=== PATIENT | male | born 1960 | race Caucasian/White ===

== ENCOUNTER 2019-04-11 10:09 | Observation (INO) ==
--- NOTE | 2019-03-14 16:09 | PAT Medication Instructions ---
Medication Instructions Date of Service March 14, 2019 Home Medications albuterol sulfate 2 puff INHALATION Q6H PRN amlodipine 2.5 mg PO DAILY PRN ascorbic acid (vitamin C) [Vitamin C] 500 mg PO HS aspirin [Aspir-81] 81 mg PO QAM brinzolamide-brimonidine [Simbrinza] 1 drp OPHTHALMIC (EYE) BID bupropion HCl 150 mg PO QAM buspirone 15 mg PO TID celecoxib [Celebrex] 200 mg PO QPM cholecalciferol (vitamin D3) [Vitamin D3] 5,000 unit PO QPM dimenhydrinate [Dramamine] 50 mg PO TID PRN donepezil 10 mg PO QPM esomeprazole magnesium 40 mg PO QAM gabapentin 100 mg PO TID hydroxyzine HCl 50 mg PO TID PRN levothyroxine 50 mcg PO QAM linaclotide [Linzess] 72 mcg PO QAM loratadine 10 mg PO QAM metronidazole 500 mg PO BID morphine 15 mg PO Q12H multivitamin 1 tab PO QAM potassium chloride 20 meq PO BID primidone 50 mg PO BID promethazine 25 mg PO DAILY PRN quetiapine 25 - 50 mg PO BID quetiapine 200 mg PO HS risperidone 0.5 mg PO HS simethicone [Gas-X Extra Strength] 125 mg PO BID PRN simvastatin 20 mg PO QAM testosterone 2 - 3 packet TRANSDERMAL BID tizanidine 2 mg PO DAILY PRN tolterodine 2 mg PO HS torsemide 10 mg PO QAM trazodone 100 mg PO HS vortioxetine [Trintellix] 20 mg PO QAM Continue as directed testosterone 2 - 3 packet TRANSDERMAL BID -- continue as directed but do not place patch near surgical site ASK your surgeon for instructions celecoxib [Celebrex] 200 mg PO QPM STOP taking 24 hours before surgery primidone 50 mg PO BID DO NOT take the morning of surgery dimenhydrinate [Dramamine] 50 mg PO TID PRN linaclotide [Linzess] 72 mcg PO QAM loratadine 10 mg PO QAM multivitamin 1 tab PO QAM potassium chloride 20 meq PO BID simethicone [Gas-X Extra Strength] 125 mg PO BID PRN tizanidine 2 mg PO DAILY PRN torsemide 10 mg PO QAM Take morning of surgery With a small sip of water, OTHERWISE NOTHING TO EAT OR DRINK AFTER MIDNIGHT: albuterol sulfate 2 puff INHALATION Q6H PRN (if needed, and bring with you to the hospital) amlodipine 2.5 mg PO DAILY PRN aspirin [Aspir-81] 81 mg PO QAM brinzolamide-brimonidine [Simbrinza] 1 drp OPHTHALMIC (EYE) BID bupropion HCl 150 mg PO QAM buspirone 15 mg PO TID esomeprazole magnesium 40 mg PO QAM gabapentin 100 mg PO TID levothyroxine 50 mcg PO QAM metronidazole 500 mg PO BID morphine 15 mg PO Q12H promethazine 25 mg PO DAILY PRN quetiapine 25 - 50 mg PO BID simvastatin 20 mg PO QAM vortioxetine [Trintellix] 20 mg PO QAM Take evening before surgery albuterol sulfate 2 puff INHALATION Q6H PRN (if needed) amlodipine 2.5 mg PO DAILY PRN (if needed) ascorbic acid (vitamin C) 500 mg PO HS brinzolamide-brimonidine [Simbrinza] 1 drp OPHTHALMIC (EYE) BID buspirone 15 mg PO TID celecoxib [Celebrex] 200 mg PO QPM cholecalciferol (vitamin D3) 5,000 unit PO QPM dimenhydrinate [Dramamine] 50 mg PO TID PRN (if needed) donepezil 10 mg PO QPM gabapentin 100 mg PO TID hydroxyzine HCl 50 mg PO TID PRN (if needed) metronidazole 500 mg PO BID morphine 15 mg PO Q12H potassium chloride 20 meq PO BID promethazine 25 mg PO DAILY PRN (if needed) quetiapine 25 - 50 mg PO BID quetiapine 200 mg PO HS risperidone 0.5 mg PO HS simethicone [Gas-X Extra Strength] 125 mg PO BID PRN (if needed) tizanidine 2 mg PO DAILY PRN (if needed) tolterodine 2 mg PO HS trazodone 100 mg PO HS Other Notes If you have any questions please call us at [phone] or [phone] or [phone] or [phone]
--- NOTE | 2019-03-15 13:01 | Anesthesiology Consultation ---
Date of Service March 15, 2019 Assessment & Plan (1) Encounter for pre-operative examination: *PATIENT IS FTM TRANSGENDER, USES MALE PRONOUNS* *LIKELY DIFFICULT INTUBATION BASED ON EXAM* *PATIENT IS LEGALLY BLIND* Cardiology clearance 03/17/2019: "Cleared to have upcoming right arthroscopic shoulder surgery with UOC. Pharm nuclear stress study 07/2018 negative for ischemia. No history of obstructive CAD. Hypertension controlled well. MVR normal function 1 year ago." Chart Review Chart Review: Acceptable Risk for Surgery and Patient seen in Pre Admission Testing Teaching & Discussion Instructed NPO after midnight before surgery, except medications with 15 cc of water. Medication instructions provided according to the PAT guidelines. Patient is legally blind and has his prescriptions filled and organized by [facility] in [place]. Spoke to them re: surgery date; faxed instructions, and they will fill his pack for the surgery date accordingly. History Surgery Operation Date: 04/11/19 07:00 Proposed Procedures p Right Shoulder Arthroscopic Excision Calcific Deposit, Possible Needle Barbotage - Franklyn Mariscal MD Height/Weight Height: 5 ft 3 in Weight: 97.6 kg Allergies Allergy/AdvReac Type Severity Reaction Status Date / Time latex Allergy Mild Rash Verified 03/09/19 11:13 adhesive tape Allergy Unknown Rash Verified 03/09/19 11:13 amoxicillin Allergy Unknown Unknown Verified 03/09/19 11:13 hydromorphone [From Dilaudid] AdvReac Severe Rash,LIGHTHEADED, Verified 03/09/19 11:13 VERY HOT doxycycline AdvReac Unknown Unknown Verified 03/09/19 11:13 lisinopril AdvReac Unknown Unknown Verified 03/09/19 11:13 morphine AdvReac Unknown HIGH Verified 03/09/19 11:13 DOSES-FALLS ASLEEP/CAN'T WAKE UP! NSAIDS (Non-Steroidal AdvReac Unknown GI BLEED Verified 03/09/19 11:13 Anti-Inflamma pregabalin [From Lyrica] AdvReac Unknown Confusion,A Verified 03/09/19 11:13 NGER topiramate [From Topamax] AdvReac Unknown Unknown Verified 03/09/19 11:13 Medications Home Medications Medication Instructions Recorded Confirmed Last Taken albuterol sulfate 2 puff INHALATION Q6H PRN 03/09/19 03/09/19 Unknown amlodipine 2.5 mg PO DAILY PRN 03/09/19 03/09/19 Unknown ascorbic acid (vitamin C) [Vitamin 500 mg PO HS 03/09/19 03/09/19 Unknown C] aspirin [Aspir-81] 81 mg PO QAM 03/09/19 03/09/19 Unknown brinzolamide-brimonidine 1 drp OPHTHALMIC (EYE) BID 03/09/19 03/09/19 Unknown [Simbrinza] bupropion HCl 150 mg PO QAM 03/09/19 03/09/19 Unknown buspirone 15 mg PO TID 03/09/19 03/09/19 Unknown celecoxib [Celebrex] 200 mg PO QPM 03/09/19 03/09/19 Unknown cholecalciferol (vitamin D3) 5,000 unit PO QPM 03/09/19 03/09/19 Unknown [Vitamin D3] dimenhydrinate [Dramamine] 50 mg PO TID PRN 03/09/19 03/09/19 Unknown donepezil 10 mg PO QPM 03/09/19 03/09/19 Unknown esomeprazole magnesium 40 mg PO QAM 03/09/19 03/09/19 Unknown gabapentin 100 mg PO TID 03/09/19 03/09/19 Unknown hydroxyzine HCl 50 mg PO TID PRN 03/09/19 03/09/19 Unknown levothyroxine 50 mcg PO QAM 03/09/19 03/09/19 Unknown linaclotide [Linzess] 72 mcg PO QAM 03/09/19 03/09/19 Unknown loratadine 10 mg PO QAM 03/09/19 03/09/19 Unknown metronidazole 500 mg PO BID 03/09/19 03/09/19 Unknown morphine 15 mg PO Q12H 03/09/19 03/09/19 Unknown multivitamin 1 tab PO QAM 03/09/19 03/09/19 Unknown potassium chloride 20 meq PO BID 03/09/19 03/09/19 Unknown primidone 50 mg PO BID 03/09/19 03/09/19 Unknown promethazine 25 mg PO DAILY PRN 03/09/19 03/09/19 Unknown quetiapine 25 - 50 mg PO BID 03/09/19 03/09/19 Unknown quetiapine 200 mg PO HS 03/09/19 03/09/19 Unknown risperidone 0.5 mg PO HS 03/09/19 03/09/19 Unknown simethicone [Gas-X Extra Strength] 125 mg PO BID PRN 03/09/19 03/09/19 Unknown simvastatin 20 mg PO QAM 03/09/19 03/09/19 Unknown testosterone 2 - 3 packet TRANSDERMAL BID 03/09/19 03/09/19 Unknown tizanidine 2 mg PO DAILY PRN 03/09/19 03/09/19 Unknown tolterodine 2 mg PO HS 03/09/19 03/09/19 Unknown torsemide 10 mg PO QAM 03/09/19 03/09/19 Unknown trazodone 100 mg PO HS 03/09/19 03/09/19 Unknown vortioxetine [Trintellix] 20 mg PO QAM 03/09/19 03/09/19 Unknown Past Medical History Medical History Anxiety Arthritis Bipolar disorder Cardiac murmur s/p mitral valve replacement 2006 Chronic obstructive pulmonary disease Depression [id number] transgender person Fibromyalgia GERD (gastroesophageal reflux disease) Glaucoma Hyperlipidemia Hypertension Hypothyroidism Legally blind Multiple sclerosis DX'D 20 YRS AGO-F/[place] THOMASMILAN[place] [place]esity Restless leg syndrome SOB (shortness of breath) on exertion ON OCC Stage III chronic kidney disease Exercise / Class Metabolic Activity III < 4 Walking/Shop/Light housework (Limited by knee pain, denies CP or SOB with ambulation) Past Family History Family History Grandfather (Maternal) Family history of diabetes mellitus Past Surgical History Surgical History H/O eye surgery MANY X BILAT-RETINAL, FOR GLAUCOMA, ETC H/O knee surgery X 5 OPEN History of adenoidectomy History of arthroscopy LEFT SHOULDER History of section History of colonoscopy History of esophagogastroduodenoscopy (EGD) WITH DILITATION History of heart valve replacement [id number] History of laparotomy X 3-4-[place] History of tonsillectomy Past Anesthesia History No Hx of Anesthesia Complications, Difficult Airway (LIKELY BASED ON EXAM) and No Family Hx of Anesthesia Complications History of PONV No Hx of PONV and Hx of Motion Sickness Social History Smoking Status: Former smoker Do You Dip or Chew Tobacco: No Smoking End Date: QUIT 05/2018 Hx Alcohol Use: Yes Alcohol type: hard liquor alcohol intake frequency: holidays/special occasions only Hx Substance Use: No Review of Systems Pt denies any recent chest pain, shortness of breath, palpitations, cough, fever or URI. +sinus congestion Physical Exam Vital Signs BP: 115/78 P: 80bpm SPO2: 96% RA T: 98.7 F R: 16 Constitutional + obese ENMT Mouth: + dentures, + edentulous, + macroglossia and + small oral opening Thyromental Distance: > or= 3.5 Finger Breadths (3.5) Mallampati Class: IV Neck + short neck, + thick neck and + limited neck extension (pain with extension) Respiratory normal respiratory effort Auscultation: lungs clear to auscultation bilaterally Cardiovascular Rate/Rhythm: regular rate and regular rhythm Heart Sounds: + murmur (II/ systolic loudest at RSB) Testing Laboratory Results 02/25/19 WBC: 7.12 H/H: 12.5/40.1 PLATELETS: 219 SODIUM: 142 POTASSIUM: 4.2 CHLORIDE: 103 CO2: 27 BUN: 20 CREATININE: 1.8 GLUCOSE: Electrocardiogram Date: 07/29/18 Findings: + NSR @ (61bpm with first degree AV block) Chest X-Ray Date: 07/29/18 Lungs well expanded without demonstrable pneumothorax or pleural effusion. Mild linear parenchymal density seen in each lower lung field most prominent retrocardiac left lower lung field suspect for linear atelectasis. There is cu rrently no focal parenchymal consolidation. There is no pulmonary vascular congestion. Status post median sternotomy and valve replacement. Echocardiogram Date: 01/28/18 EF: 55-59% Borderline concentric LVH. The right ventricular cavity size and systolic function are normal. The left atrium is mildly enlarged. There is aortic valve sclerosis without stenosis. There is a mitral valve bioprosthesis present. Significant mitral valve prosthesis stenosis and regurgitation are absent. Prosthetic valve mean peak velocity of 1.57 ms, peak/mean gradient of 11/4 at heart rate of 52 bpm. Compared to prior echo the gradients of decreased. Mild tricuspid regurgitation is present. No pericardial effusion is noted. Normal IVC size and collapsibility with inspiration indicates a normal right atrial pressure 3 mmHg. Estimated pulmonary artery systolic pressure is 42 mmHg. Stress Test Date: 08/17/18 Type: nuclear Resting EF: >70% Lexiscan nuclear cardiac stress test negative for ischemia. TID normal at 1.08.
--- NOTE | 2019-04-10 17:49 | History and Physical Report ---
DATE OF ADMISSION: 04/11/2019 CHIEF COMPLAINT: Chronic right shoulder pain. HISTORY OF PRESENT ILLNESS: This is a 58-year-old male patient of Dr. Mariscal'milka complaining of chronic right shoulder pain, longstanding, now progressively getting worse. The patient failed conservative treatment and wishes to proceed with a right shoulder arthroscopic excision of calcific deposit and possible needle barbotage. PAST MEDICAL HISTORY: Congestive heart failure, heart murmur, heart valve problem, hypercholesterolemia, COPD, anxiety, multiple sclerosis, hypothyroidism, osteoarthritis, back problems, sciatica, acid reflux, obesity. SOCIAL HISTORY: Nonsmoker, occasional drinker. PAST SURGICAL HISTORY: Bypass surgery, left shoulder surgery, , left lower leg surgery x5, laparoscopic surgery, cholecystectomy, tonsillectomy, bilateral eye surgery, bilateral thumb surgeries. REVIEW OF SYSTEMS: The patient complains of chronic right shoulder pain. Otherwise, denies any shortness of breath, chest pain, nausea, vomiting or any other joint complaints. FAMILY HISTORY: Noncontributory. MEDICATIONS: 1. Hydroxyzine 50 mg 3 times daily. 2. Trazodone 100 mg daily. 3. Gabapentin 100 mg 5 capsules in the a.m. and 4 capsules in the p.m. 4. Furosemide 20 mg daily. 5. Linzess 290 mcg daily. 6. Advair Diskus 250/50 one puff twice daily. 7. Budesonide 32 mcg/actuation inhaler daily. 8. Simvastatin 20 mg daily. 9. Quetiapine 200 mg daily at night. 10. Aspirin 81 mg daily. 11. Levothyroxine 50 mcg daily. 12. Proventil HFA 90 mcg actuation inhaler 2 puffs daily every 4-6 hours as needed. 13. Aricept 10 mg daily. 14. Metoprolol 25 mg 1/2 tablet twice daily. 15. Lorazepam 1 mg daily. 16. Trintellix 20 mg daily. 17. Morphine 15 mg every 8 hours as needed. 18. Simbrinza 1%-0.2% eye drop suspension twice daily. 19. Vitamin D3 1000 units daily. 20. Myrbetriq 50 mg daily. 21. Primidone 50 mg daily. 22. MiraLax 17 grams packet with water daily. 23. Requip 1 mg daily. 24. Vitamin C 250 mg 2 tablets daily. 25. Magnesium 40 mg twice daily. 26. Risperdal 0.5 mg daily. 27. Relistor 150 mg daily. 28. Baclofen 5 mg twice daily. ALLERGIES: HYDROMORPHONE, WHICH IS ANAPHYLACTIC, LATEX; LISINOPRIL, ANTI-INFLAMMATORIES, ADHESIVES, LYRICA AND TOPAMAX. PHYSICAL EXAMINATION: GENERAL: Well-developed, well-nourished 58-year-old male in no acute distress. He is alert and oriented x3 and pleasant. HEENT: Normocephalic, atraumatic. Extraocular motions are intact. Pupils are equal and reactive to light. HEART: Regular rate and rhythm with a 2/6 murmur appreciated. LUNGS: Clear. ABDOMEN: Soft, nontender, bowel sounds present. EXTREMITIES: Right shoulder active range of motion of 0-120, passively to 140. He has positive impingement maneuvering. He has 4/5 strength with pain. Neurologically and neurovascularly, he is intact in the right upper extremity. DIAGNOSES: Right shoulder calcific tendinitis and impingement, history of congestive heart failure, heart murmur, heart valve problem, hypercholesterolemia, chronic obstructive pulmonary disease, anxiety, multiple sclerosis, hypothyroidism, heart valve replacement, osteoarthritis, upper back problems, sciatica, acid reflux, obesity. PLAN: The patient was advised of his diagnosis. Indications, risks, benefits, postop course have all been reviewed. The patient wished to proceed with a right shoulder arthroscopic excision of calcific deposit and possible needle barbotage. Necessary consent forms, preoperative testing and clearances will be obtained.
[~2019-04-11 10:09] MED LIST: CEFAZOLIN 2000MG 2,000 MG/15 ML SYR IV SCH; CLINDAMYCIN 600 MG/54 ML BAG IV SCH; LR 15ML/HR IV SCH; ROPIVACAINE 0.5% 5 MG/ML 30 ML VIAL ONE
[2019-04-11] MEDS ORDERED: fentaNYL citrate 100 MCG/2 ML VIAL ONE (10:50)
--- NOTE | 2019-04-11 10:50 | History & Physical Bridge Note ---
Date of Service April 11, 2019 History & Physical Bridge Note I have examined the patient, reviewed the History & Physical and in the interval since the performance of the History & Physical I have noted the following changes of clinical significance: no changes noted
[2019-04-11] MEDS ORDERED: MIDAZOLAM HCL 1 MG/ML 2ML VIAL ONE ×2 (10:51)
[2019-04-11] MEDS ORDERED: CLINDAMYCIN 600 MG/54 ML D5W IV ONE (12:11)
[2019-04-11] MEDS ORDERED: ePHEDrine sulfate 50 MG/ML AMP IV PRN (12:37)
[2019-04-11] MEDS ORDERED: ONDANSETRON INJ 2 MG/ML 2 ML VIAL IV PRN ×2 (12:37→16:35)
[2019-04-11] MEDS ORDERED: ATROPINE SULFATE 0.1 MG/ML 10ML SYR IV PRN (12:37)
[2019-04-11] MEDS ORDERED: fentaNYL citrate 100 MCG/2 ML VIAL IV PRN (12:37)
[2019-04-11] MEDS ORDERED: EpINEphrine HCL INJ 1 MG/ML 1ML SYRINGE ONE ×2 (12:46→14:13)
[2019-04-11] MEDS ORDERED: LIDOCAINE HCL 2% 2 ML VIAL/AMP(20MG/ML) INFIL ONE (14:34)
[2019-04-11] MEDS ORDERED: PROPOFOL IV EMULSION 10 MG/ML 20 ML VIAL IV ONE (14:34)
[2019-04-11] MEDS ORDERED: DEXAMETHASONE SOD INJ 4 MG/ML VIAL ONE (14:34)
[2019-04-11] MEDS ORDERED: ONDANSETRON INJ 2 MG/ML 2 ML VIAL ONE (14:34)
[2019-04-11] MEDS ORDERED: ePHEDrine sulfate 50 MG/ML SYR ONE (14:34)
--- NOTE | 2019-04-11 14:42 | Post Operative Brief Note ---
Immediate Post Op Note v1 Date of Surgery April 11, 2019 Pre & Post Diagnosis Operation Date: 04/11/19 13:00 Pre-Op Diagnosis: Right Shoulder: Calcific Tendonitis and Impingement Post-Op Diagnosis: Right Shoulder: Calcific Tendonitis and Impingement, Subacromial Bursitis. Glenohumeral joint degenerative arthritis, degenerative glenoid labrum, articular sided partial tear rotator cuff I identified the patient and participated in the time-out.: Yes Procedure Operation Date: 04/11/19 13:00 Actual Procedures p Right Shoulder: Arthroscopic Excision Calcific Deposit, Needle Barbotage, Subacromial Decompression, glenohumeral joint and labral debridement, Debridement Partial Tear Rotator Cuff(Right), subacromial bursectomy- Franklyn Mariscal MD Surgeon Franklyn Mariscal MD Printing Press Operator Nael CUENCA Estimated Blood Loss 10 Findings Consistent with Post-Op Diagnosis Anesthesia Type General Regional Complications none Disposition Accompanied Patient To Recovery: No Disposition: Recovery Room Overlapping Procedure I was immediately available: during the entire case.
--- NOTE | 2019-04-11 14:52 | Operative Report ---
Post Operative Report Pre & Post Diagnosis Operation Date: 04/11/19 13:00 Pre-Op Diagnosis: Right Shoulder: Calcific Tendinitis and possible subacromial impingement Post-Op Diagnosis: Right Shoulder: Calcific Tendinitis and Impingement, articular sided partial tear rotator cuff, subacromial Bursitis, glenohumeral joint degenerative arthritis with degenerative glenoid labrum and chronic subacromial bursitis I identified the patient and participated in the time-out.: Yes Procedure Operation Date: 04/11/19 13:00 Actual Procedures p Right Shoulder: Arthroscopic Excision Calcific Deposit, Needle Barbotage, Subacromial Decompression, extensive debridement including subacromial bursal calcium deposit articular side partial tear rotator cuff glenoid labrum and humeral head articular surface- Franklyn Mariscal MD Surgeon Franklyn Mariscal MD Cash Grain Grower Nael CUENCA Estimated Blood Loss 10 Findings Consistent with Post-Op Diagnosis Specimens None Anesthesia Type General Regional Complications none Disposition Accompanied Patient To Recovery: No Disposition: Recovery Room Indications 58-year-old male chronic right shoulder pain failed conservative management. Radiographs demonstrate a type II acromion with calcific tendinitis of the rotator cuff maintained glenohumeral joint space on axillary view. Description of Procedure The patient was to the operating room anesthetized under regional block and general anesthesia. The patient was positioned on the operating table in the 70 beachchair position. All of the other extremities were well-padded. The right upper extremity was prepped and draped in the usual sterile fashion. Examination demonstrated an obese arm good passive range of motion. Arthroscopy of the shoulder was performed via anterior and posterior arthroscopy portals. Posterior portal was placed in the soft spot and the anterior portal was placed in the rotator interval. Subsequent portals included lateral subacromial. The following findings were noted: Glenohumeral joint demonstrated grade 3 degenerative arthritis of the glenohumeral joint. The glenoid still had reasonably good articular surface with some grade 1-2 changes the humeral head however had a large area of articular thinning not quite exposed bone yet but there were large areas of delamination in the central region of the humeral head with some loose delaminating flaps around the edges. There was some degenerative fraying of the glenoid labrum anterior superior and posterior. Biceps tendon and anchor were normal intact. There was undersurface partial articular sided superficial tearing of the supraspinatus with some thin displaced flaps just a few millimeters thick. Subacromial space was chronic thickened subacromial bursitis intact bursal surface of the rotator cuff calcium deposit in the supraspinatus tendon and type II acromion no fraying of the CA ligament but with the curvature the acromion and may have created some impinge ment. Attention was first taken to debriding the frayed edges of the labrum. I used a 4.5 full-radius resector suction shaver device to do that. Similar debridement was performed of the delaminating loose edges around the thin the central lesion of the humeral head. The partial tear of the rotator cuff debrided back to intact stable fibers. A thorough subacromial bursectomy was performed. The capsule deposit was identified using a spinal needle to penetrate rotator cuff with a needle barbotage used to take small cores of calcium out of the deposit and break up the deposit. A probe was placed into the positive to work out as much calcium is good from within the rotator cuff and area of the calcium deposit. All this calcific Debris Was Irrigated Out Of the Subacromial Space. The bursa and periosteum on the undersurface of the acromion was ablated with the radiofrequency ablator and the CA ligament was released off the anterior acromion. The CA ligament was debrided back. A 5.5 bur was used to plane down the acromion to type I flat shape. There was taken through range of motion it was no impingement. The portal sites were closed with interrupted nylon sutures. Sterile dressings were applied and a sling immobilizer. The patient tolerated the procedure well. My physician internal medicine physician assistant Nael CUENCA, assisted in arm positioning, instrument management, suture management when indicated, incision closure, sling application, and will participate in the postoperative care of the patient. I attest to the content of the Intraoperative Record and any orders documented therein. Any exceptions are noted below.
--- NOTE | 2019-04-11 15:26 | Anesthesiology Progress Note ---
Date of Service April 11, 2019 Anesthesia Post Procedure Vital Signs Vital Signs: Temp Pulse Pulse Resp BP BP Pulse Ox 04/11/19 15:15 71 16 132/85 100 04/11/19 15:05 72 25 H 117/77 100 04/11/19 14:57 36.5 C 73 23 131/75 100 04/11/19 11:32 36.9 C 78 20 119/79 95 Pain Intensity Generalized: Pain Intensity: 7 Notes Mental Status: alert / awake / arousable and participated in evaluation Nausea / Vomiting: adequately controlled Pain: adequately controlled Airway Patency, RR, SpO2: stable & adequate BP & HR: stable & adequate Hydration State: stable & adequate Anesthetic Complications: no major complications apparent and Pt Satisfied with anesthetic care
[2019-04-11] MEDS ORDERED: ALBUTEROL HFA 8 GM INHALER INH PRN (16:35)
[2019-04-11] MEDS ORDERED: TIZANIDINE HCL 4 MG TABLET PO PRN (16:35)
[2019-04-11] MEDS ORDERED: HYDROmorphone INJ 0.5 MG/0.5 ML SYR IV PRN (16:35)
[2019-04-11] MEDS ORDERED: SODIUM CHLORIDE 0.9% 1000ML 1,000 ML IV SCH (16:35)
[2019-04-11] MEDS ORDERED: NALOXONE HCL 0.4 MG/1 ML VIAL/CARP IV PRN (16:35)
[2019-04-11] MEDS ORDERED: bisacodyL 10 MG SUPP PR PRN (16:35)
[2019-04-11] MEDS ORDERED: AMLODIPINE BESYLATE 5 MG TAB PO PRN (16:35)
[2019-04-11] MEDS ORDERED: MAGNESIUM HYDROXIDE SUSP 30 ML UDC PO PRN (16:35)
[2019-04-11] MEDS ORDERED: SIMETHICONE 80 MG CHEW PO PRN (16:35)
[2019-04-11] MEDS ORDERED: TESTOSTERONE TD SCH (21:00)
[2019-04-11] MEDS ORDERED: risperiDONE 0.5 MG TABLET PO SCH (21:00)
[2019-04-11] MEDS ORDERED: DONEPEZIL HCL 10 MG TAB PO SCH (21:00)
[2019-04-11] MEDS ORDERED: QUETIAPINE FUMARATE 200 MG TAB PO SCH (21:00)
[2019-04-11] MEDS ORDERED: CeleBREX 200 MG CAP PO SCH (21:00)
[2019-04-11] MEDS ORDERED: CHOLECALCIFEROL 1,000 UNITS TAB PO SCH (21:00)
[2019-04-11] MEDS ORDERED: TOLTERODINE TARTRATE LA 2 MG CAPCR PO SCH (21:00)
[2019-04-11] MEDS ORDERED: TRAZODONE HCL 100 MG TAB PO SCH (21:00)
[2019-04-11] MEDS ORDERED: BRINZOLAMIDE BRIMONIDINE OP SCH (21:00)
[2019-04-11] MEDS: QUETIAPINE FUMARATE 25 MG TABLET PO SCH (21:36)
[2019-04-11] MEDS: PRIMIDONE 50 MG TAB PO SCH (21:37)
[2019-04-11] MEDS: POTASSIUM CHLORIDE 20 MEQ TABCR PO SCH (21:37)
[2019-04-11] MEDS: BusPIRone 15 MG TAB PO SCH (21:37)
[2019-04-11] MEDS: DOCUSATE SODIUM 100 MG CAP PO SCH (21:38)
[2019-04-11] MEDS: GABAPENTIN 600 MG TAB PO SCH (21:38)
[2019-04-11] MEDS: MoRPHine SULFATE CR 15 MG TABCR PO SCH (21:38)
[2019-04-12] MEDS: MoRPHine SULFATE 2 MG/ML CARP IV PRN ×2 (00:17→06:09)
[2019-04-12] MEDS ORDERED: LEVOTHYROXINE SODIUM 50 MCG TABLET PO SCH (06:30)
--- NOTE | 2019-04-12 08:03 | Anesthesiology Progress Note ---
Date of Service April 12, 2019 Anesthesia Post Procedure Vital Signs Vital Signs: Temp Pulse Pulse Pulse Resp BP BP 04/12/19 02:45 36.5 C 75 18 142/87 H 04/11/19 23:20 36.4 C L 68 16 144/60 H 04/11/19 18:57 36.7 C 80 17 122/78 04/11/19 17:46 36.7 C 78 18 123/77 04/11/19 16:47 36.7 C 71 18 114/75 04/11/19 16:18 36.7 C 73 18 103/68 04/11/19 15:49 36.7 C 73 20 111/69 04/11/19 15:35 36.4 C L 72 22 119/85 04/11/19 15:25 71 20 113/77 04/11/19 15:15 71 16 132/85 04/11/19 15:05 72 25 H 117/77 04/11/19 14:57 36.5 C 73 23 131/75 04/11/19 11:32 36.9 C 78 20 119/79 Pulse Ox 04/12/19 02:45 92 04/11/19 23:20 94 04/11/19 18:57 93 04/11/19 17:46 92 04/11/19 16:47 92 04/11/19 16:18 93 04/11/19 15:49 93 04/11/19 15:35 100 04/11/19 15:25 93 04/11/19 15:15 100 04/11/19 15:05 100 04/11/19 14:57 100 04/11/19 11:32 95 Notes Mental Status: alert / awake / arousable Patient Amnestic to Procedure: Yes Nausea / Vomiting: adequately controlled Pain: adequately controlled Airway Patency, RR, SpO2: stable & adequate BP & HR: stable & adequate Hydration State: stable & adequate Anesthetic Complications: no major complications apparent and Pt Satisfied with anesthetic care
--- NOTE | 2019-04-12 08:11 | Orthopedic Progress Note ---
Date of Service April 12, 2019 Assessment & Plan (1) Calcific tendinitis of right shoulder: POD #1, Right shoulder scope, excision calcific deposit, needle barbotage, SAD, extensive debridement. PT/ OT D/C home today. Subjective POD #1, Feeling well. Pain controlled well. Denies SOB, CP, N/V. Physical Exam Physical Exam: Right shoulder dressings c/d/i. Fingers mobile. Sling in tact. A&Ox3. N/V+. Results & Data Vital Signs (Past 12 Hours) Vital Signs Temp Pulse Resp BP Pulse Ox 04/12/19 02:45 36.5 C 75 18 142/87 H 92 04/11/19 23:20 36.4 C L 68 16 144/60 H 94
[2019-04-12] MEDS: BusPIRone 15 MG TAB PO SCH (08:42)
[2019-04-12] MEDS: POTASSIUM CHLORIDE 20 MEQ TABCR PO SCH (08:42)
[2019-04-12] MEDS: PRIMIDONE 50 MG TAB PO SCH (08:43)
[2019-04-12] MEDS: GABAPENTIN 600 MG TAB PO SCH (08:43)
[2019-04-12] MEDS: QUETIAPINE FUMARATE 25 MG TABLET PO SCH (08:44)
[2019-04-12] MEDS: DOCUSATE SODIUM 100 MG CAP PO SCH (08:48)
[2019-04-12] MEDS: MoRPHine SULFATE CR 15 MG TABCR PO SCH (08:48)
[2019-04-12] MEDS ORDERED: MULTIVITAMIN TAB PO SCH (09:00)
[2019-04-12] MEDS ORDERED: BuPROPion SR 150 MG TABCR PO SCH (09:00)
[2019-04-12] MEDS ORDERED: LORATADINE 10 MG TAB PO SCH (09:00)
[2019-04-12] MEDS ORDERED: ASPIRIN 81 MG ECTAB PO SCH (09:00)
[2019-04-12] MEDS ORDERED: NON-FORMULARY MEDICATION (Vortioxetine [Trintellix] 20 MG) PO SCH (09:00)
[2019-04-12] MEDS ORDERED: TORSEMIDE 10 MG TAB PO SCH (09:00)
[2019-04-12] MEDS ORDERED: SIMVASTATIN 20 MG TAB PO SCH (09:00)
[2019-04-12] MEDS ORDERED: PANTOprazole 40 MG TAB PO SCH (09:00)
[2019-04-12] MEDS ORDERED: LINACLOTIDE 72 MCG CAPSULE PO SCH (09:00)
--- NOTE | 2019-04-26 07:53 | Discharge Summary ---
DISCHARGE DIAGNOSES: Right shoulder calcific tendinitis with impingement, articular-sided partial tear rotator cuff, subacromial bursitis, glenohumeral joint degenerative arthritis with degenerative glenoid labrum and chronic subacromial bursitis. SECONDARY DIAGNOSES: History of congestive heart failure, heart valvular disease, hypercholesterolemia, chronic obstructive pulmonary disease, anxiety, multiple sclerosis, hypothyroidism, osteoarthritis, gastroesophageal reflux disease, obesity. CONSULTATIONS: None. COMPLICATIONS: None. PROCEDURES: Right shoulder arthroscopic excision of calcific deposit; needle barbotage; subacromial decompression; extensive debridement including subacromial bursal calcium deposit articular side; partial tear rotator cuff, glenoid labrum and humeral head articular surface by Dr. Mariscal on 04/11/2019. BRIEF HISTORY: As dictated in the history and physical. HOSPITAL SUMMARY: The patient was admitted on the above-noted date and had the above-noted surgery performed above. On his first postoperative day, he was feeling well and pain was controlled. He had no complaints of shortness of breath, chest pain, nausea, or vomiting. Shoulder dressings were intact. Fingers were mobile. Sling was intact. Neurovascular was intact. Vital signs were stable and she was afebrile. It was felt that he was remaining stable and was discharged to home on 04/12/2019. For further review, please see chart. LABORATORY AND X-RAY DATA: As per chart. DISCHARGE INSTRUCTIONS: The patient was discharged to home in satisfactory condition on 04/12/2019. DIET: Regular. ACTIVITY: Follow shoulder arthroscopy instructions and special care instructions as well. FOLLOWUP: With Dr. Mariscal in 10-14 days from the day of surgery. The patient to call for appointment if one has not been made for you. DISCHARGE MEDICATIONS: Resume all home medications as listed.
== END 2019-04-12 10:59 | disposition home or self-care (01) ==
LOC: 3E 10:09 → ASU 10:09

== ENCOUNTER 2020-01-04 05:58 | Observation (INO) ==
--- NOTE | 2019-12-14 16:22 | PAT Medication Instructions ---
Medication Instructions Date of Service December 14, 2019 Home Medications Simbrinza 1 drp OPHTHALMIC (EYE) BID Trintellix 20 mg PO QAM albuterol sulfate 2 puff INHALATION Q6H PRN amlodipine 2.5 mg PO DAILY PRN ascorbic acid (vitamin C) 500 mg PO HS aspirin [Aspir-81] 81 mg PO QAM bupropion HCl [Wellbutrin SR] 150 mg PO QAM buspirone 15 mg PO TID celecoxib [Celebrex] 200 mg PO QPM cholecalciferol (vitamin D3) [Vitamin D3] 5,000 unit PO QPM dimenhydrinate [Dramamine] 50 mg PO TID PRN donepezil [Aricept] 10 mg PO QPM esomeprazole magnesium [Nexium] 40 mg PO BID gabapentin 100 mg PO HS hydroxyzine HCl 50 mg PO TID levothyroxine 50 mcg PO QAM morphine 15 mg PO Q12H multivitamin 1 tab PO QAM potassium chloride 20 meq PO BID primidone [Mysoline] 50 mg PO BID promethazine 25 mg PO DAILY PRN risperidone [Risperdal] 0.5 mg PO HS simethicone [Gas-X Extra Strength] 125 mg PO BID PRN simvastatin 20 mg PO QAM testosterone 3 packet TRANSDERMAL TID tizanidine [Zanaflex] 2 mg PO DAILY PRN tolterodine 2 mg PO HS torsemide 10 mg PO QAM trazodone 200 mg PO HS linaclotide [Linzess] 290 mcg PO QAM loratadine [Claritin] 10 mg PO QAM ASK your surgeon for instructions aspirin [Aspir-81] 81 mg PO QAM celecoxib [Celebrex] 200 mg PO QPM testosterone 3 packet TRANSDERMAL TID DO NOT take the morning of surgery dimenhydrinate [Dramamine] 50 mg PO TID PRN hydroxyzine HCl 50 mg PO TID multivitamin 1 tab PO QAM potassium chloride 20 meq PO BID simethicone [Gas-X Extra Strength] 125 mg PO BID PRN tizanidine [Zanaflex] 2 mg PO DAILY PRN torsemide 10 mg PO QAM linaclotide [Linzess] 290 mcg PO QAM loratadine [Claritin] 10 mg PO QAM Take morning of surgery With a small sip of water, OTHERWISE NOTHING TO EAT OR DRINK AFTER MIDNIGHT: Simbrinza 1 drp OPHTHALMIC (EYE) BID (bring with you to the hospital) Trintellix 20 mg PO QAM albuterol sulfate 2 puff INHALATION Q6H PRN (if needed, and bring with you to the hospital) amlodipine 2.5 mg PO DAILY PRN (if needed) bupropion HCl [Wellbutrin SR] 150 mg PO QAM buspirone 15 mg PO TID esomeprazole magnesium [Nexium] 40 mg PO BID levothyroxine 50 mcg PO QAM morphine 15 mg PO Q12H (if needed, may be taken up to four hours before surgery) primidone [Mysoline] 50 mg PO BID promethazine 25 mg PO DAILY PRN (if needed) simvastatin 20 mg PO QAM Take evening before surgery Simbrinza 1 drp OPHTHALMIC (EYE) BID albuterol sulfate 2 puff INHALATION Q6H PRN (if needed) amlodipine 2.5 mg PO DAILY PRN (if needed) ascorbic acid (vitamin C) 500 mg PO HS buspirone 15 mg PO TID cholecalciferol (vitamin D3) [Vitamin D3] 5,000 unit PO QPM dimenhydrinate [Dramamine] 50 mg PO TID PRN (if needed) donepezil [Aricept] 10 mg PO QPM esomeprazole magnesium [Nexium] 40 mg PO BID gabapentin 100 mg PO HS hydroxyzine HCl 50 mg PO TID morphine 15 mg PO Q12H potassium chloride 20 meq PO BID primidone [Mysoline] 50 mg PO BID promethazine 25 mg PO DAILY PRN (if needed) risperidone [Risperdal] 0.5 mg PO HS simethicone [Gas-X Extra Strength] 125 mg PO BID PRN (if needed) tizanidine [Zanaflex] 2 mg PO DAILY PRN (if needed) tolterodine 2 mg PO HS trazodone 200 mg PO HS Other Notes If you have any questions please call us at [phone] or [phone] or [phone] or [phone]
--- NOTE | 2019-12-15 12:57 | Anesthesiology Consultation ---
Date of Service December 15, 2019 Assessment & Plan (1) Encounter for pre-operative examination: Chart Review Chart Review: Pending: Refer to Additional Notes / Consult section (pending 12/18 neuro note and preop Covid testing results ) and Patient seen in Pre Admission Testing Seeing neuro 12/18 for routine follow up- will ensure MS controlled Pt is female to male transgender. *Pt legally blind Pt probably difficult intubation based on exam Per PAT appt on 12/15/19, pt denies any recent travel. No known Covid positive contacts or Covid related symptoms. Educated patient to follow up with surgeon's office regarding Covid testing. Educated on importance of self quarantining, social distancing and wearing mask in public both for the patient and household contacts. Seen by cardio 10/10/19= seen for follow up. "Overall stable from a cardiac perspective during today's visit. Juan has an upcoming visit with [facility] surgery to discuss bilateral mastectomy. Juan is currently stable and doing well from our perspective. I did not make any medication changes today." F/u in one year- will repeat ECHO at that time. Right shoulder arthroscopy 04/11/19= Done under [facility] with LMA #4. Atraumatic LMA attempt x 1. Teaching & Discussion Pre-Anesthesia Teaching/Discussion Notes: Instructed NPO after midnight before surgery,except medications with 15 cc of water. Medication instructions provided according to the PAT guidelines. History Surgery Operation Date: 01/04/20 07:30 Proposed Procedures p Bilateral Mastectomy with Free Nipple Grafting - Shahrzad Joel MD Height/Weight Height: 5 ft 2 in Weight: 102.6 kg Allergies Allergy/AdvReac Type Severity Reaction Status Date / Time latex Allergy Mild Rash Verified 12/09/19 10:18 adhesive tape Allergy Unknown Rash Verified 12/09/19 10:18 amoxicillin Allergy Unknown Rash Verified 12/09/19 10:18 hydromorphone [From Dilaudid] AdvReac Severe Rash,LIGHTHEADED, Verified 12/09/19 10:18 VERY HOT doxycycline AdvReac Unknown Unknown Verified 12/09/19 10:18 lisinopril AdvReac Unknown Unknown Verified 12/09/19 10:18 morphine AdvReac Unknown HIGH Verified 12/09/19 10:18 DOSES-FALLS ASLEEP/CAN'T WAKE UP! NSAIDS (Non-Steroidal AdvReac Unknown GI BLEED Verified 12/09/19 10:18 Anti-Inflamma pregabalin [From Lyrica] AdvReac Unknown Confusion,A Verified 12/09/19 10:18 NGER topiramate [From Topamax] AdvReac Unknown Unknown Verified 12/09/19 10:18 Medications Home Medications Medication Instructions Recorded Confirmed Last Taken Simbrinza 1 drp OPHTHALMIC (EYE) BID 03/09/19 12/15/19 04/11/19 07:00 Trintellix 20 mg PO QAM 03/09/19 12/15/19 04/11/19 08:30 albuterol sulfate 2 puff INHALATION Q6H PRN 03/09/19 12/15/19 04/08/19 amlodipine 2.5 mg PO DAILY PRN 03/09/19 12/15/19 Unknown ascorbic acid (vitamin C) [Vitamin 500 mg PO HS 03/09/19 12/15/19 04/10/19 22:00 C] aspirin [Aspir-81] 81 mg PO QAM 03/09/19 12/15/19 04/10/19 10:00 bupropion HCl [Wellbutrin SR] 150 mg PO QAM 03/09/19 12/15/19 04/11/19 08:30 buspirone 15 mg PO TID 03/09/19 12/15/19 04/11/19 08:30 celecoxib [Celebrex] 200 mg PO QPM 03/09/19 12/15/19 04/11/19 08:30 cholecalciferol (vitamin D3) 5,000 unit PO QPM 03/09/19 12/15/19 04/10/19 16:00 [Vitamin D3] dimenhydrinate [Dramamine] 50 mg PO TID PRN 03/09/19 12/15/19 04/11/19 08:30 donepezil [Aricept] 10 mg PO QPM 03/09/19 12/15/19 04/10/19 22:00 esomeprazole magnesium [Nexium] 40 mg PO BID 03/09/19 12/15/19 04/11/19 08:30 gabapentin 100 mg PO HS 03/09/19 12/15/19 04/11/19 08:30 hydroxyzine HCl 50 mg PO TID 03/09/19 12/15/19 04/11/19 08:30 levothyroxine 50 mcg PO QAM 03/09/19 12/15/19 04/11/19 08:30 morphine 15 mg PO Q12H 03/09/19 12/15/19 04/11/19 08:30 multivitamin 1 tab PO QAM 03/09/19 12/15/19 04/11/19 06:30 potassium chloride 20 meq PO BID 03/09/19 12/15/19 04/10/19 16:00 primidone [Mysoline] 50 mg PO BID 03/09/19 12/15/19 04/11/19 08:30 promethazine 25 mg PO DAILY PRN 03/09/19 12/15/19 04/11/19 08:30 risperidone [Risperdal] 0.5 mg PO HS 03/09/19 12/15/19 04/10/19 22:00 simethicone [Gas-X Extra Strength] 125 mg PO BID PRN 03/09/19 12/15/19 04/11/19 08:30 simvastatin 20 mg PO QAM 03/09/19 12/15/19 04/11/19 08:30 testosterone 3 packet TRANSDERMAL TID 03/09/19 12/15/19 04/11/19 06:30 tizanidine [Zanaflex] 2 mg PO DAILY PRN 03/09/19 12/15/19 04/10/19 tolterodine 2 mg PO HS 03/09/19 12/15/19 04/10/19 22:00 torsemide 10 mg PO QAM 03/09/19 12/15/19 04/10/19 08:30 trazodone 200 mg PO HS 03/09/19 12/15/19 04/10/19 23:30 linaclotide [Linzess] 290 mcg PO QAM 12/09/19 12/15/19 Unknown loratadine [Claritin] 10 mg PO QAM 12/09/19 12/15/19 Unknown clindamycin HCl 300 mg capsule 300 mg PO TID 7 Days #21 cap 12/15/19 12/15/19 Unknown oxycodone-acetaminophen 5 mg-325 1 tab PO Q4H PRN #18 tab 12/15/19 12/15/19 Un known mg tablet Past Medical History Medical History (Updated 12/15/19 @ 13:36 by Dixie Jalloh PA-C) Anxiety Asthma And emphysema- controlled and stable- follows with pulm Bipolar disorder Cardiac murmur s/p mitral valve replacement 2006 Chronic obstructive pulmonary disease WELL CONTROLLED PER PT Depression [id number] transgender person Fibromyalgia No recent flares - chronic pain GERD (gastroesophageal reflux disease) Well controlled and stable Glaucoma Legally blind- follows with eye doctor routinely Hx MRSA infection LEFT KNEE > - NOT ACTIVE Hyperlipidemia Hypertension Hypothyroidism Legally blind Migraine Multiple sclerosis DX'D 20 YRS AGO-F/U DR HO/[facility] [place]; STABLE - ISSUES WITH AMBULATION Obesity GILDARDO (obstructive sleep apnea) Cannot tolerate CPAP Restless leg syndrome SOB (shortness of breath) on exertion ON OCC Stage III chronic kidney disease FOLLOWS DR. PALMA > [facility] Urinary incontinence, nocturnal enuresis Exercise / Class Metabolic Activity III < 4 Walking/Shop/Light housework (NO CHEST PAIN, MILD SOB WITH FLAT SURFACE AMBULATION- USUALLY USES CANE OR PERSON FOR SUPPORT ) Past Family History Family History Grandfather (Maternal) Family history of diabetes mellitus Past Surgical History Surgical History H/O eye surgery MANY X BILAT-RETINAL, FOR GLAUCOMA, ETC H/O knee surgery X 5 OPEN left History of adenoidectomy History of arthroscopy LEFT X2 /RIGHT SHOULDER History of section x1 History of colonoscopy History of esophagogastroduodenoscopy (EGD) WITH DILITATION [id number] History of hysterectomy PARTIAL History of laparotomy X 3-4-[place] History of tonsillectomy History of tooth extraction Past Anesthesia History No Hx of Anesthesia Complications and No Family Hx of Anesthesia Complications History of PONV No Hx of PONV and No Hx of Motion Sickness Social History Smoking Status: Former smoker Do You Dip or Chew Tobacco: No Smoking End Date: QUIT MAY 2018 Hx Alcohol Use: Yes Alcohol type: beer and hard liquor alcohol intake frequency: a few times a month Hx Substance Use: No substance use type: does not use Review of Systems Hx of blood transfusion in early due to GI bleed- no recent issues Patient denies chest pain, shortness of breath, dyspnea on exertion, cough, wheezing, palpitations. No hx of seizures, stroke, AR.. No hx of blood clots. Physical Exam Vital Signs VITALS BP 134/86 P 95 TEMP 98.9 SP02 96% RESP 16 Constitutional + morbidly obese; no acute distress ENMT Mouth: no TMJ clicking Thyromental Distance: < 3.5 Finger Breadths (2.5) Mallampati Class: III Missing all teeth Neck + short neck, + thick neck and + limited neck extension (significant ) Respiratory normal respiratory effort; no respiratory distress Auscultation: lungs clear to auscultation bilaterally and + diminished lung sounds (minimal throughout ); no wheezes Cardiovascular Rate/Rhythm: regular rate and regular rhythm Heart Sounds: + murmur (I/ systolic murmur) Vessels: no carotid bruit Musculoskeletal Spine: + pain with cervical ROM Neurologic moves all extremities Psychiatric Orientation: alert Testing Laboratory Results 12/15/19 13:13 12/15/19 13:28 PT 11.0 Seconds (9.0-12.0) 12/15/19 13:13 INR 1.0 (0.9-1.1) 12/15/19 13:13 APTT 26.3 Seconds (21.0-31.0) 12/15/19 13:13 Electrocardiogram Date: 12/15/19 Findings: + NSR @ (87) Echocardiogram Date: 01/28/18 EF: 55-59% RWMA: + none Borderline concentric LVH. The right ventricular cavity size and systolic function are normal. The left atrium is mildly enlarged. There is aortic valve sclerosis without stenosis. There is a mitral valve bioprosthesis present. Significant mitral valve prosthesis stenosis and regurgitation are absent. Prosthetic valve mean peak velocity of 1.57 ms, peak/mean gradient of 11/4 at heart rate of 52 bpm. Compared to prior echo the gradients of decreased. Mild tricuspid regurgitation is present. No pericardial effusion is noted. Normal IVC size and collapsibility with inspiration indicates a normal right atrial pressure 3 mmHg. Estimated pulmonary artery systolic pressure is 42 mmHg. Stress Test Date: 08/17/18 Type: nuclear Resting EF: >70% Lexiscan nuclear cardiac stress test negative for ischemia. TID normal at 1.08. Other Testing Chest CT 09/27/19= mild emphysematous changes. Tiny treeinbud-like nodular densities and thin reticular densities right upper lobe unchanged. This nonspecific abnormality but most commonly due to prior bronchiolitis. Thin linear band of density right lung base unchanged and likely due to scarring. A few thin reticular densities left lower lobe possibly mild fibrosis or atelectasis. Small pleural effusions previously have cleared. Impression shows negative benign appearance or behavior of nodules. No new/unknown potentially significant incidental findings requiring urgent additional evaluation.
[2019-12-15 14:03] LABS: Basophils # (auto) 0.09 K/uL (0-0.2); Eosinophils # (auto) 0.18 K/uL (0-0.5); Hematocrit (blood only) 44.2 % (42-52); Hemoglobin 13.9 g/dL (14.0-18.0); Immature Granulocytes % (auto) 1.1 %; Lymphocytes # (auto) 1.18 K/uL (1.2-3.4); Mean Corpuscular Hemoglobin 26.7 pg (25-34); Mean Corpuscular Hgb Conc 31.4 g/dL (32-36); Mean Corpuscular Volume 84.8 fL (80-100); Monocytes % (auto) 12.1 %; Neutrophils # (auto) 6.41 K/uL (1.4-6.5); Neutrophils % (auto) 70.8 %; Platelet Count 247 K/uL (130-400); RDW Coefficient of Variation 16.8 % (11.5-14.5); RDW Standard Deviation 52.5 fL (36.4-46.3); Red Blood Count 5.21 M/uL (4.7-6.1); White Blood Count 9.06 K/uL (4.8-10.8)
[2019-12-15 14:16] LABS: Partial Thromboplastin Ratio 0.9; Partial Thromboplastin Time 26.3 Seconds (21.0-31.0)
[2019-12-15 15:07] LABS: BUN Creatinine Ratio 9.3 (10-20); Calcium 9.2 mg/dl (8.5-10.1); Creatinine Clr Calc Pharmacy 61.8 ml/min; Potassium 3.8 mmol/L (3.5-5.1)
--- NOTE | 2019-12-16 05:44 | Electrocardiogram Report ---
Test Reason : Blood Pressure : / mmHG Vent. Rate : 087 BPM Atrial Rate : 087 BPM P-R Int : 200 ms QRS Dur : 072 ms QT Int : 350 ms P-R-T Axes : 076 062 035 degrees QTc Int : 421 ms Normal sinus rhythm Normal ECG No previous ECGs available Confirmed by Saeed Combs ([id number]) on 12/16/2019 5:43:41 AM Referred By: Shahrzad Joel Confirmed By:Saeed Combs
[2020-01-04] MEDS ORDERED: CLINDAMYCIN 600 MG/54 ML BAG IV SCH (06:00)
[2020-01-04] MEDS ORDERED: LR 15ML/HR IV SCH (06:00)
[2020-01-04] MEDS ORDERED: MIDAZOLAM HCL 1 MG/ML 2ML VIAL ONE (06:59)
[2020-01-04] MEDS ORDERED: fentaNYL citrate 100 MCG/2 ML VIAL ONE ×2 (07:00→09:59)
[2020-01-04] MEDS ORDERED: LIDOCAINE HCL 2% 2 ML VIAL/AMP(20MG/ML) INFIL ONE (07:01)
[2020-01-04] MEDS ORDERED: PROPOFOL IV EMULSION 10 MG/ML 20 ML VIAL IV ONE (07:01)
[2020-01-04] MEDS ORDERED: ONDANSETRON INJ 2 MG/ML 2 ML VIAL ONE ×2 (07:01→11:38)
[2020-01-04] MEDS ORDERED: ROCURONIUM BROMIDE 10 MG/ML 5 ML VIAL IV ONE ×3 (07:04→08:15)
[2020-01-04] MEDS ORDERED: SUGAMMADEX SODIUM 200 MG/2 ML VIAL IV ONE (07:05)
[2020-01-04] MEDS ORDERED: EPINEPHrine INJ 1 MG/ML AMP ONE (07:12)
[2020-01-04] MEDS ORDERED: LIDOCAINE/EPINEPHRINE 1% 20 ML VIAL ONE (07:12)
[2020-01-04] MEDS ORDERED: BUPIVACAINE 0.25% 30 ML VIAL ONE (07:12)
[2020-01-04] MEDS ORDERED: LIDOCAINE HCL 1% 20 ML VIAL ONE (07:12)
--- NOTE | 2020-01-04 07:35 | History & Physical Bridge Note ---
Date of Service January 04, 2020 History & Physical Bridge Note I have examined the patient, reviewed the History & Physical and in the interval since the performance of the History & Physical I have noted the following changes of clinical significance: no changes noted
[2020-01-04] MEDS ORDERED: ONDANSETRON INJ 2 MG/ML 2 ML VIAL IV PRN (09:26)
[2020-01-04] MEDS ORDERED: ePHEDrine sulfate 50 MG/ML AMP IV PRN (09:26)
[2020-01-04] MEDS ORDERED: PROMETHAZINE HCL 12.5 MG in SODIUM CHLORIDE 0.9% 50 ML IV PRN (09:26)
[2020-01-04] MEDS ORDERED: fentaNYL citrate 100 MCG/2 ML VIAL IV PRN (09:26)
[2020-01-04] MEDS ORDERED: ATROPINE SULFATE 0.1 MG/ML 10ML SYR IV PRN (09:26)
[2020-01-04] MEDS ORDERED: METOCLOPRAMIDE HCL INJ 5 MG/ML 2 ML VIAL IV PRN (09:26)
[2020-01-04] MEDS ORDERED: NEOSTIGMINE METHYLSULFATE 5 MG/5 ML SYR ONE (11:36)
[2020-01-04] MEDS ORDERED: GLYCOPYRROLATE 0.2 MG/ML VIAL ONE (11:36)
[2020-01-04] MEDS ORDERED: LABETALOL HCL IV 5 MG/ML 20ML IV ONE (11:50)
--- NOTE | 2020-01-04 12:17 | Post Operative Brief Note ---
PG Immediate Post Op with CF Date of Surgery January 04, 2020 Pre & Post Diagnosis Operation Date: 01/04/20 07:30 Pre-Op Diagnosis: Female to male transgender person Post-Op Diagnosis: Female to male transgender person I identified the patient and participated in the time-out.: Yes Procedure Operation Date: 01/04/20 07:30 Actual Procedures p Bilateral Non Cancerous Mastectomy with Free Nipple Grafting(Bilateral) - Shahrzad Joel MD Surgeon Shahrzad Joel MD Activity Therapist Nevaeh Richards PA-C Estimated Blood Loss 50 Findings Consistent with Post-Op Diagnosis Specimens Specimen Description: A. Left Breast B. Right Breast
[2020-01-04] MEDS ORDERED: SIMETHICONE 80 MG CHEW PO PRN (13:58)
[2020-01-04] MEDS ORDERED: ALBUTEROL HFA 8 GM INHALER INH PRN (14:00)
[2020-01-04] MEDS ORDERED: AMLODIPINE BESYLATE 5 MG TAB PO PRN (14:00)
[2020-01-04] MEDS ORDERED: PROMETHAZINE HCL 25 MG TAB PO PRN (14:00)
[2020-01-04] MEDS ORDERED: TIZANIDINE HCL 4 MG TABLET PO PRN (14:00)
--- NOTE | 2020-01-04 14:07 | Anesthesiology Progress Note ---
Date of Service January 04, 2020 Anesthesia Post Procedure Vital Signs Vital Signs: Temp Pulse Pulse Pulse Resp BP Pulse Ox 01/04/20 13:47 36.6 C 70 16 149/92 H 91 01/04/20 13:20 36.4 C L 70 14 151/94 H 95 01/04/20 13:10 36.4 C L 71 17 154/97 H 95 01/04/20 13:00 70 14 123/78 100 01/04/20 12:50 70 14 141/91 H 100 01/04/20 12:40 36.3 C L 70 12 153/105 H 99 01/04/20 06:22 37 C 71 18 136/85 96 Pain Intensity Bilateral Leg: Pain Intensity: 6 Transfer of Care Handoff Completed per policy Notes Mental Status: alert / awake / arousable and participated in evaluation Patient Amnestic to Procedure: Yes Nausea / Vomiting: adequately controlled Pain: adequately controlled Airway Patency, RR, SpO2: stable & adequate BP & HR: stable & adequate Hydration State: stable & adequate Anesthetic Complications: no major complications apparent
[2020-01-04] MEDS ORDERED: MoRPHine SULFATE 4 MG/ML 1 ML CARP\\VIAL IV PRN (14:15)
[2020-01-04] MEDS ORDERED: MoRPHine SULFATE 10 MG/ML CARP/VIAL IV PRN (14:15)
[2020-01-04] MEDS ORDERED: D5W AND 1/2NSS + 20MEQ KCL 20 MEQ/1,000 ML BAG IV SCH (14:45)
--- NOTE | 2020-01-04 14:59 | Operative Report ---
PG Post Operative Report Pre & Post Diagnosis Operation Date: 01/04/20 07:30 Pre-Op Diagnosis: Female to male transgender person Post-Op Diagnosis: Female to male transgender person I identified the patient and participated in the time-out.: Yes Procedure Operation Date: 01/04/20 07:30 Actual Procedures p Bilateral Non Cancerous Mastectomy with Free Nipple Grafting(Bilateral) - Shahrzad Joel MD Surgeon Shahrzad Joel MD Rehab Liaison Nevaeh Richards PA-C Estimated Blood Loss 50 Findings Consistent with Post-Op Diagnosis Specimens bilateral breast tissue to pathology Drains [id number] Anesthesia Type General Complications none Disposition Disposition: Recovery Room Indications 59 year old transgender male, presenting as and legally male, on hormone therapy x4 years with appropriate mental health clearances desiring mastectomy for gender affirmation Description of Procedure The risks benefits and alternatives of the procedure were explained the patient agreed and signed consent. He was identified and marked in the preoperative holding area. I marked the incisions along the inframammary folds and made the superior incision in an elliptical fashion in order to provide a horizontal scar pattern if possible. I also marked the position where anticipated placing the nipple areolar complex and had the patient confirmed the site. Site marking was adjusted due to patient preference. He is brought to the operating room where he was placed under general anesthesia in supine position without incident. Surgical site was prepped and draped sterilely. A timeout procedure was performed. 1% lidocaine with epinephrine was used to anesthetize the planned incisions. I began the procedure on the left side by making a small stab incision along the superior incision. The left nipple areolar complex was harvested as a free nipple graft. I elected to use a 25 mm size nipple areolar complex. It was harvested using a 15 blade scalpel and was defatted using a curved iris scissor. It was placed on the back table in a saline soaked sponge until I was ready to place the graft. I began by making the inferior incision using 15 blade scalpel. Incision was deepened through dermis using the bovie, and deepened down to the chest wall. Similar incision was made superiorly, beveling the incision in order to allow for some hair growth through the scar. Incision was again deepened using the the bovie. Superiorly, the incision was deepened until the breast capsule was able to be identified and a mastectomy flap of uniform thickness, approximately 2 cm in thickness was raised in this plane superiorly toward the clavicle. As this was a noncancerous mastectomy, I did not extend the dissection all the way up to the clavicle in order to prevent contour irregularity. Once I reached the pectoralis major both inferiorly and superiorly with dissection, I then began to dissect the breast off of the pectoralis fascia leaving a small amount of underlying fat. Throughout dissection, hemostasis was achieved using the the bovie. The breast was removed and passed off as specimen. In order to improve chest contour, undermining was performed along the inframammary fold to free this tissue up and to facilitate closure. Incision was initially tailor tacked using nikki well addressed to the right breast. Prior to closure, there is noted to be significant axillary and upper back fat contiguous with the lateral breast, and therefore suction assisted lipectomy was performed to this area. I began by infiltrating 250 cc of tumescent solution per side consisting of lidocaine plain, lactated Ringer's, epinephrine. About 350 cc of Lipo aspirate was obtained from each lateral breast and chest wall. Contour was noted to be significantly improved. It should be noted that this portion of the procedure should be considered inclusive of the mastectomy. [place] were removed. Wound was examined for hemostasis. Prior to closure, quarter percent Marcaine plain was used to anesthetize the flaps as well as pectoralis fascia, and a 15 Maltese Benitez drain was placed in the wound bed and brought out through a separate stab incision laterally. Deep dermis was closed using 2-0 Vicryl interrupted sutures. After placing 2-0 Vicryl interrupted sutures, there was noted to be some excess fullness along the incision, and small amount of additional liposuction was performed to improve contour. Superficial dermis closed using 3-0 PDO running Quill suture, and subcuticular wound closure was performed using 3-0 Monocryl. Following closure, the nipple areolar complex was inset. I made an incision at the patient's desired location, at the lateral border of pectoralis and just superior to the incision. This was de-epithelialized. 8 4-0 silk tie over bolster sutures were placed, with 4-0 chromic sutures placed in between, and a Xeroform and cotton bolster was placed. An identical procedure was performed on the right side. There is excellent symmetry at the close of the case. Amber Cazares was applied to the incisions. Dry dressing followed by reston foam and a binder were placed. Nevaeh Richards was present and scrubbed throughout the entire procedure and was instrumental in assisting in retraction, assisting in simultaneous wound closure, and preparing the nipple areolar complex grafts. I attest to the content of the Intraoperative Record and any orders documented therein. Any exceptions are noted below.
[2020-01-04] MEDS: BusPIRone 15 MG TAB PO SCH ×2 (15:32→20:17)
[2020-01-04] MEDS: CLINDAMYCIN 600 MG in DEXTROSE 5% 50 ML IV SCH (15:41)
[2020-01-04] MEDS: MoRPHine SULFATE 2 MG/ML CARP IV PRN (17:42)
[2020-01-04] MEDS: BRINZOLAMIDE (AZOPT) OPS 10 ML BTL OP SCH (20:11)
[2020-01-04] MEDS: PANTOprazole 40 MG TAB PO SCH (20:13)
[2020-01-04] MEDS: BRIMONIDINE TARTRATE 0.2% 5ML OP SCH (20:23)
[2020-01-04] MEDS ORDERED: risperiDONE 0.5 MG TABLET PO SCH (21:00)
[2020-01-04] MEDS ORDERED: TRAZODONE HCL 100 MG TAB PO SCH (21:00)
[2020-01-04] MEDS ORDERED: CHOLECALCIFEROL 1,000 UNITS 25 MCG TAB PO SCH (21:00)
[2020-01-04] MEDS ORDERED: CeleBREX 200 MG CAP PO SCH (21:00)
[2020-01-04] MEDS ORDERED: GABAPENTIN 100 MG CAP PO SCH (21:00)
[2020-01-04] MEDS ORDERED: TOLTERODINE TARTRATE LA 2 MG CAPCR PO SCH (21:00)
[2020-01-04] MEDS ORDERED: MoRPHine SULFATE CR 15 MG TABCR PO SCH (21:00)
[2020-01-04] MEDS ORDERED: DONEPEZIL HCL 10 MG TAB PO SCH (21:00)
[2020-01-04] MEDS ORDERED: LACTATED RINGER'S 500 ML IV ONE (21:12)
[2020-01-04] MEDS ORDERED: Nursing to Pharmacy Communication SCH (21:15)
[2020-01-04] MEDS ORDERED: SODIUM CHLORIDE 0.9% 1000ML 1,000 ML IV ONE ×3 (21:34→23:00)
[2020-01-04] MEDS ORDERED: ACETAMINOPHEN 325 MG TAB PO STA (21:36)
[2020-01-04] MEDS: POTASSIUM CHLORIDE 20 MEQ TABCR PO SCH (22:07)
[2020-01-04] MEDS: SODIUM CHLORIDE 0.9% 1000ML 1,000 ML IV SCH (22:07)
[2020-01-04] MEDS: PRIMIDONE 50 MG TAB PO SCH (22:09)
[2020-01-04 22:26] LABS: Mean Corpuscular Hgb Conc 33.3 g/dL (32-36); Mean Platelet Volume 9.9 fL (7.4-10.4); Platelet Count 239 K/uL (130-400)
[2020-01-04 22:46] LABS: Albumin Level 2.4 gm/dl (3.4-5.0); BUN Creatinine Ratio 13.2 (10-20); Calcium 8.5 mg/dl (8.5-10.1); Creatinine Clr Calc Pharmacy 53.2 ml/min; Est GFR (African American) 55.1; Est GFR (Non-African American) 47.5; Magnesium 1.4 mg/dl (1.8-2.4); Potassium 4.3 mmol/L (3.5-5.1)
[2020-01-04 22:52] LABS: Hematocrit (blood only) 31.1 % (42-52); Mean Corpuscular Volume 80.8 fL (80-100); RDW Coefficient of Variation 15.7 % (11.5-14.5); RDW Standard Deviation 46.5 fL (36.4-46.3); Red Blood Count 3.85 M/uL (4.7-6.1); White Blood Count 23.82 K/uL (4.8-10.8)
[2020-01-04 22:53] LABS: ALC (manual) 1.86 K/uL (1.2-3.4); ANC (manual) 21.34 K/uL (1.4-6.5); Basophils # (manual) 0.21 K/uL (0-0.2); Basophils % (manual) 0.9 %; Lymphocytes # (manual) 1.86 K/uL (1.2-3.4); Lymphocytes % (manual) 7.8 %; Monocytes % (manual) 1.7 %; Neutrophils # (manual) 21.34 K/uL (1.4-6.5); Neutrophils % (manual) 89.6 %; RBC Morphology Unremarkable
[2020-01-04 22:57] LABS: Albumin Globulin Ratio 0.9 (0.9-2); Bilirubin,Total 0.4 mg/dl (0.2-1); Globulin 2.5 gm/dl (2.5-4.0); Thyroid Stimulating Hormone 0.54 uIu/ml (0.300-4.500); Total Protein 4.9 gm/dl (6.4-8.2)
--- NOTE | 2020-01-04 23:10 | Hospitalist Consultation ---
Date of Consultation January 04, 2020 Assessment & Plan (1) S/P mastectomy: Final Assessment and Recommendations as follows : Postop hypotension Status post elective bilateral mastectomy (female to male transgender procedure) Multifactorial : ARF, hypovolemia Severe sepsis (SIRS plus ARF plus hypotension plus lactic acid elevation) secondary to complicated UTI, hx neurogenic bladder secondary to MS Postop anemia hx pulmonary hypertension/ COPD/GILDARDO (CPAP intolerance) as per records, pulmonary status at baseline hx bioprosthetic MVR, stable cardiac status as per outpatient [facility] cardiology preop eval September 2019 mood disorder, at baseline hx seizure disorder, stable on regimen history chronic pain/fibromyalgia on chronic narcotic Rx dementia as per records Hypothyroidism, euthyroid as of today's TSH Hyperglycemia rule out DM Bilateral blindness past tobacco abuse Cultures, Cefepime IVF, follow lactic acid Hold home diuretic, NSAID Rx for now given kidney dysfunction Follow renal function, renal ultrasound if without improvement Appropriate hold parameters for RTC multiple narcotic/neuropsychotropic meds for sedation/confusion Trend H&H, transfuse PRBC if hemoglobin less than 7 and or for symptomatic anemia Check hemoglobin A1c DVT prophylaxis. SCDs as per postop orders Recommend pharmacologic anticoagulation with Heparin 5000 units SQ every 8 hours if hemoglobin stable and once bleeding risk is deemed to be minimal and negligible pending surgery postop eval. Thank you very much for this consultation. Dr. Quinteros will follow patient's progress. Text document was generated using [employer] voice recognition software. It may contain grammatical or spelling errors. Kindly contact undersigned for clarification of any documentation item in question. History of Present Illness Reason for Consultation: Hypotension Requesting Physician: Dr. Joel/Nevaeh Richards PA-C Attending Physician: Shahrzad Joel MD History of Present Illness PCP : Dr. Sears History obtained from patient and records. Medical history significant for hypertension, hyperlipidemia, hx COPD/GILDARDO (CPAP intolerance), pulmonary hypertension as per records, history bioprosthetic MVR, mood disorder, history seizure disorder, history chronic pain/fibromyalgia on chronic narcotic Rx, dementia as per records, past tobacco abuse, multiple sclerosis as per records, hx neurogenic bladder as per records bilateral bli ndness secondary to glaucoma. Patient underwent elective female to male transition surgery (bilateral mastectomy with free nipple grafting) today. Postop patient complaining of postop chest discomfort without unusual shortness of breath/cough symptoms. Low-grade fever and transient headache. Patient felt warm. Transient diarrhea symptoms the last few days. No abdominal pain. Urinary retention noted postop. SBP noted to be 60s at one point on the floor. Medical History as above Surgical History : Bilateral mastectomies, carpal tunnel surgery, vascular procedures, tendon sheath surgery, partial hysterectomy, septoplasty, bioprosthetic MVR, bone grafting, wrist bone surgery, cholecystectomy, urinary bladder surgery Family History : Diabetes, stroke Personal/Social history : Past tobacco abuse, occasional EtOH intake, disabled Allergies Allergy/AdvReac Type Severity Reaction Status Date / Time latex Allergy Mild Rash Verified 01/04/20 06:30 adhesive tape Allergy Unknown Rash Verified 01/04/20 06:30 amoxicillin Allergy Unknown Rash Verified 01/04/20 06:30 hydromorphone [From Dilaudid] AdvReac Severe Rash,LIGHTHEADED, Verified 01/04/20 06:30 VERY HOT doxycycline AdvReac Unknown Rash Verified 01/04/20 06:30 lisinopril AdvReac Unknown Unknown Verified 01/04/20 06:30 morphine AdvReac Unknown HIGH Verified 01/04/20 06:30 DOSES-FALLS ASLEEP/CAN'T WAKE UP! NSAIDS (Non-Steroidal AdvReac Unknown GI BLEED Verified 01/04/20 06:30 Anti-Inflamma pregabalin [From Lyrica] AdvReac Unknown Confusion,A Verified 01/04/20 06:30 NGER topiramate [From Topamax] AdvReac Unknown Unknown Verified 01/04/20 06:30 Home Medications Home Medications Medication Instructions Recorded Confirmed Type Simbrinza 1 drp OPHTHALMIC (EYE) BID 03/09/19 01/04/20 History Trintellix 20 mg PO QAM 03/09/19 01/04/20 History albuterol sulfate 2 puff INHALATION Q6H PRN 03/09/19 01/04/20 History amlodipine 2.5 mg PO DAILY PRN 03/09/19 01/04/20 History ascorbic acid (vitamin C) [Vitamin 500 mg PO HS 03/09/19 01/04/20 History C] aspirin [Aspir-81] 81 mg PO QAM 03/09/19 01/04/20 History bupropion HCl [Wellbutrin SR] 150 mg PO QAM 03/09/19 01/04/20 History buspirone 15 mg PO TID 03/09/19 01/04/20 History celecoxib [Celebrex] 200 mg PO QPM 03/09/19 01/04/20 History cholecalciferol (vitamin D3) 5,000 unit PO QPM 03/09/19 01/04/20 History [Vitamin D3] dimenhydrinate [Dramamine] 50 mg PO TID PRN 03/09/19 01/04/20 History donepezil [Aricept] 10 mg PO QPM 03/09/19 01/04/20 History esomeprazole magnesium [Nexium] 40 mg PO BID 03/09/19 01/04/20 History gabapentin 100 mg PO HS 03/09/19 01/04/20 History hydroxyzine HCl 50 mg PO TID 03/09/19 01/04/20 History levothyroxine 50 mcg PO QAM 03/09/19 01/04/20 History morphine 15 mg PO Q12H 03/09/19 01/04/20 History multivitamin 1 tab PO QAM 03/09/19 01/04/20 History potassium chloride 20 meq PO BID 03/09/19 01/04/20 History primidone [Mysoline] 50 mg PO BID 03/09/19 01/04/20 History promethazine 25 mg PO DAILY PRN 03/09/19 01/04/20 History risperidone [Risperdal] 0.5 mg PO HS 03/09/19 01/04/20 History simethicone [Gas-X Extra Strength] 125 mg PO BID PRN 03/09/19 01/04/20 History simvastatin 20 mg PO QAM 03/09/19 01/04/20 History testosterone 3 packet TRANSDERMAL TID 03/09/19 01/04/20 History tizanidine [Zanaflex] 2 mg PO DAILY PRN 03/09/19 01/04/20 History tolterodine 2 mg PO HS 03/09/19 01/04/20 History torsemide 10 mg PO QAM 03/09/19 01/04/20 History trazodone 200 mg PO HS 03/09/19 01/04/20 History linaclotide [Linzess] 290 mcg PO QAM 12/09/19 01/04/20 History loratadine [Claritin] 10 mg PO QAM 12/09/19 01/04/20 History clindamycin HCl 300 mg capsule 300 mg PO TID 7 Days #21 cap 12/15/19 12/15/19 Rx Patient History Medical History Anxiety Asthma And emphysema- controlled and stable- follows with pulm Bipolar disorder Cardiac murmur s/p mitral valve replacement 2006 Chronic obstructive pulmonary disease WELL CONTROLLED PER PT Depression Wnwkns-uh-uxgu transgender person Fibromyalgia No recent flares - chronic pain GERD (gastroesophageal reflux disease) Well controlled and stable Glaucoma Legally blind- follows with eye doctor routinely Hx MRSA infection LEFT KNEE > - NOT ACTIVE Hyperlipidemia Hypertension Hypothyroidism Legally blind Migraine Multiple sclerosis DX'D 20 YRS AGO[place]F[facility] [facility] [place] [facility] [place] STABLE - ISSUES WITH AMBULATION Obesity GILDARDO (obstructive sleep apnea) Cannot tolerate CPAP Restless leg syndrome SOB (shortness of breath) on exertion ON OCC Stage III chronic kidney disease FOLLOWS DR. PALMA > [facility] Urinary incontinence, nocturnal enuresis Surgical History (Updated 01/05/20 @ 05:04 by Mehdi Lebron MD) H/O eye surgery MANY X BILAT-RETINAL, FOR GLAUCOMA, ETC H/O knee surgery X 5 OPEN left History of adenoidectomy History of arthroscopy LEFT X2 /RIGHT SHOULDER History of section x1 History of colonoscopy History of esophagogastroduodenoscopy (EGD) WITH DILITATION History of heart valve replacement [id number] History of hysterectomy PARTIAL History of laparotomy X 3-4-[place] History of tonsillectomy History of tooth extraction Family History Grandfather (Maternal) Family history of diabetes mellitus Social History Smoking Status: Former smoker Smoking End Date: QUIT MAY 2018; Second Hand Exposure: No; Do You Dip or Chew Tobacco: No; Tobacco Cessation Education Requested by Patient: No Hx Alcohol Use: Yes Alcohol type: beer Hx Substance Use: No Preferred Language: Kazakh Communication Ability: Effective Supervisor Graphite Required: No Beliefs That Will Affect Care: None Current Living Situation: Alone Other Information That Helps Us Care for You: No Feels Safe at Home: Yes Safety Concerns: Feels Safe At This Time Review of Systems Review of Systems: As per HPI, all 10 systems reviewed, all other ROS negative Physical Exam Physical Exam: GENERAL: Slightly uncomfortable, morbidly obese, no respiratory distress SKIN: Pallor, warm HEENT: Pale palpebral conjunctivae, no ptosis, dry buccal mucosa NECK : Supple, short neck, no tenderness CHEST : Dressing over anterior chest wall, decreased breath sounds, chest wall tenderness HEART : Tachycardic, systolic murmur ABDOMEN: Some distention, nontender EXTREMITIES : Minimal LE swelling, no LE tenderness, no other conspicuous de formities noted NEUROLOGIC : Coherent, visual acuity not assessed, no facial asymmetry, gait and stance not assessed Results & Data Results & Data ([facility]) Vital Signs (Past 12 Hours) Vital Signs Temp Pulse Pulse Resp BP Pulse Ox 01/04/20 19:42 94/65 L 01/04/20 19:35 37.6 C H 96 H 19 87/58 L 95 01/04/20 15:48 36.7 C 76 19 148/84 H 99 01/04/20 14:15 36.6 C 73 18 162/93 H 98 01/04/20 13:47 36.4 C L 71 17 149/92 H 95 01/04/20 13:20 36.4 C L 70 14 151/94 H 95 01/04/20 13:10 36.4 C L 71 17 154/97 H 95 01/04/20 13:00 70 14 123/78 100 01/04/20 12:50 70 14 141/91 H 100 01/04/20 12:40 36.3 C L 70 12 153/105 H 99 Laboratory Results Laboratory Results WBC 23.82 K/uL (4.8-10.8) H 01/04/20 22:11 RBC 3.85 M/uL (4.7-6.1) L 01/04/20 22:11 Hgb 10.0 g/dL (14.0-18.0) L 01/04/20 22:11 Hct 31.1 % (42-52) L 01/04/20 22:11 MCV 80.8 fL (80-100) 01/04/20 22:11 MCH 26.0 pg (25-34) 01/04/20 22:11 MCHC 33.3 g/dL (32-36) 01/04/20 22:11 RDW Std Deviation 46.5 fL (36.4-46.3) H 01/04/20 22:11 RDW Coeff of Ortiz 15.7 % (11.5-14.5) H 01/04/20 22:11 Plt Count 239 K/uL (130-400) 01/04/20 22:11 MPV 9.9 fL (7.4-10.4) 01/04/20 22:11 Immature Gran % (Auto) 1.1 % 12/15/19 13:13 Neut % (Auto) 70.8 % 12/15/19 13:13 Lymph % (Auto) 13.0 % 12/15/19 13:13 Milam % (Auto) 12.1 % 12/15/19 13:13 Eos % (Auto) 2.0 % 12/15/19 13:13 Baso % (Auto) 1.0 % 12/15/19 13:13 Neut # (Auto) 6.41 K/uL (1.4-6.5) 12/15/19 13:13 Lymph # (Auto) 1.18 K/uL (1.2-3.4) L 12/15/19 13:13 Milam # (Auto) 1.10 K/uL (0.11-0.59) H 12/15/19 13:13 Eos # (Auto) 0.18 K/uL (0-0.5) 12/15/19 13:13 Baso # (Auto) 0.09 K/uL (0-0.2) 12/15/19 13:13 Immature Gran # (Auto) 0.10 K/uL (0.00-0.02) H 12/15/19 13:13 Neutrophils % (Manual) 89.6 % 01/04/20 22:11 Lymphocytes % (Manual) 7.8 % 01/04/20 22:11 Monocytes % (Manual) 1.7 % 01/04/20 22:11 Basophils % (Manual) 0.9 % 01/04/20 22:11 Neutrophils # (Manual) 21.34 K/uL (1.4-6.5) H 01/04/20 22:11 Total Absolute Neuts 21.34 K/uL (1.4-6.5) H 01/04/20 22:11 Lymphocytes # (Manual) 1.86 K/uL (1.2-3.4) 01/04/20 22:11 Total Abs Lymphocytes 1.86 K/uL (1.2-3.4) 01/04/20 22:11 Monocytes # (Manual) 0.40 K/uL (0.11-0.59) 01/04/20 22:11 Basophils # (Manual) 0.21 K/uL (0-0.2) H 01/04/20 22:11 RBC Morphology Unremarkable 01/04/20 22:11 PT 11.0 Seconds (9.0-12.0) 12/15/19 13:13 INR 1.0 (0.9-1.1) 12/15/19 13:13 APTT 26.3 Seconds (21.0-31.0) 12/15/19 13:13 PTT Ratio 0.9 12/15/19 13:13 Sodium 138 mmol/L (136-145) 01/04/20 22:11 Potassium 4.3 mmol/L (3.5-5.1) 01/04/20 22:11 Chloride 105 mmol/L (98-107) 01/04/20 22:11 Carbon Dioxide 24 mmol/L (21-32) 01/04/20 22:11 Anion Gap 8.0 (3-11) 01/04/20 22:11 BUN 21 mg/dl (7-18) H 01/04/20 22:11 Creatinine 1.58 mg/dl (0.6-1.4) H 01/04/20 22:11 Est Cr Clr Drug Dosing 53.2 ml/min 01/04/20 22:11 Est GFR ( Amer) 55.1 01/04/20 22:11 Est GFR (Non-Af Amer) 47.5 01/04/20 22:11 BUN/Creatinine Ratio 13.2 (10-20) 01/04/20 22:11 Glucose 160 mg/dl (70-99) H 01/04/20 22:11 Lactate 3.3 mmol/L (0.4-2.0) H* 01/04/20 22:11 Calcium 8.5 mg/dl (8.5-10.1) 01/04/20 22:11 Magnesium 1.4 mg/dl (1.8-2.4) L 01/04/20 22:11 Total Bilirubin 0.4 mg/dl (0.2-1) 01/04/20 22:11 AST 17 U/L (15-37) 01/04/20 22:11 ALT 18 U/L (12-78) 01/04/20 22:11 Alkaline Phosphatase 57 U/L (45-117) 01/04/20 22:11 Total Protein 4.9 gm/dl (6.4-8.2) L 01/04/20 22:11 Albumin 2.4 gm/dl (3.4-5.0) L 01/04/20 22:11 Globulin 2.5 gm/dl (2.5-4.0) 01/04/20 22:11 Albumin/Globulin Ratio 0.9 (0.9-2) 01/04/20 22:11 Procalcitonin < 0.05 ng/ml (0-0.5) 01/04/20 22:11 TSH 0.540 uIu/ml (0.300-4.500) 01/04/20 22:11 UA WBC est +2 Diagnostic Findings Chest x-ray as per my interpretation cardiomegaly
[2020-01-05] MEDS: MAGNESIUM SULFATE / D5W 1 GM/100 ML BAG IV SCH ×3 (00:12→03:51)
[2020-01-05] MEDS: SODIUM CHLORIDE 0.9% 1000ML 1,000 ML IV SCH (00:43)
[2020-01-05] MEDS: CLINDAMYCIN 600 MG in DEXTROSE 5% 50 ML IV SCH ×2 (00:45→08:36)
[2020-01-05 01:13] LABS: Appearance Urine Clear (Clear); Bilirubin Urine Negative (Negative); Blood Urine Negative (Negative); Color Urine Yellow; Glucose Urine UA Negative (Negative); Ketones Urine Negative (Negative); Leukocyte Esterase Urine 2+ (Negative); Nitrite Urine Negative (Negative); Protein Urine Negative (Negative); RBC Urine Automated 0-4 /hpf (0-4); Urobilinogen Urine Negative (Negative); pH Urine 5.5 (4.5-7.5)
[2020-01-05] MEDS ORDERED: CEFEPIME 2,000 MG in SYRINGE 7.5 ML IV STA ×2 (01:47→02:10)
[2020-01-05] MEDS ORDERED: CEFEPIME CONSULT ACTIVE PRN (01:48)
[2020-01-05 01:50] LABS: Bacteria Urine Automated 1+ (Negative)
[2020-01-05 03:10] LABS: Hematocrit (blood only) 24.5 % (42-52); Hemoglobin 8.1 g/dL (14.0-18.0); Mean Corpuscular Hemoglobin 26.8 pg (25-34); Mean Corpuscular Hgb Conc 33.1 g/dL (32-36); Mean Corpuscular Volume 81.1 fL (80-100); Mean Platelet Volume 9.8 fL (7.4-10.4); Platelet Count 192 K/uL (130-400); RDW Coefficient of Variation 15.7 % (11.5-14.5); RDW Standard Deviation 46.6 fL (36.4-46.3); Red Blood Count 3.02 M/uL (4.7-6.1); White Blood Count 14.53 K/uL (4.8-10.8)
[2020-01-05 03:30] LABS: BUN Creatinine Ratio 15.8 (10-20); Calcium 7.3 mg/dl (8.5-10.1); Creatinine Clr Calc Pharmacy 60.5 ml/min; Est GFR (African American) 64.3; Est GFR (Non-African American) 55.5; Magnesium 1.8 mg/dl (1.8-2.4); Potassium 4.4 mmol/L (3.5-5.1)
[2020-01-05 03:35] LABS: ALC (manual) 1.38 K/uL (1.2-3.4); Basophils # (manual) 0.25 K/uL (0-0.2); Basophils % (manual) 1.7 %; Lymphocytes # (manual) 1.38 K/uL (1.2-3.4); Lymphocytes % (manual) 9.5 %; Monocytes % (manual) 6.9 %; Neutrophils % (manual) 81.9 %; RBC Morphology Unremarkable
[2020-01-05] MEDS ORDERED: SODIUM CHLORIDE 0.9% 1000ML 1,000 ML IV ONE (03:38)
[2020-01-05 05:45] LABS: Estimated Average Glucose 134 mg/dl; Hemoglobin A1C 6.3 % (4.5-5.6)
[2020-01-05] MEDS ORDERED: LEVOTHYROXINE SODIUM 50 MCG TABLET PO SCH (06:30)
--- NOTE | 2020-01-05 08:02 | XRay Report ---
SINGLE VIEW CHEST CLINICAL HISTORY: Sepsis. FINDINGS: An AP, portable, semierect chest radiograph is obtained. No prior studies are available for comparison at the time of dictation. The examination is degraded by portable technique, apical lordo tic positioning, and patient rotation. The patient is status post midline sternotomy and cardiac valv e surgery. The heart is mildly enlarged. The pulmonary vasculature is noncongested. There is no airsp lyubov consolidation or large pleural effusion. No pneumothorax is seen. The bony thorax is grossly inta ct. IMPRESSION: Mild cardiac enlargement with no acute cardiopulmonary abnormality. ACT 112: Negative or not required by law. Electronically signed by: Delfino Smart M.D. 01/05/2020 8:01 AM
[2020-01-05] MEDS: BRIMONIDINE TARTRATE 0.2% 5ML OP SCH (08:40)
[2020-01-05] MEDS: BRINZOLAMIDE (AZOPT) OPS 10 ML BTL OP SCH (08:41)
[2020-01-05] MEDS: BusPIRone 15 MG TAB PO SCH (08:41)
[2020-01-05] MEDS: PANTOprazole 40 MG TAB PO SCH (08:41)
[2020-01-05] MEDS: POTASSIUM CHLORIDE 20 MEQ TABCR PO SCH (08:43)
[2020-01-05] MEDS ORDERED: LORATADINE 10 MG TAB PO SCH (09:00)
[2020-01-05] MEDS ORDERED: TORSEMIDE 10 MG TAB PO SCH (09:00)
[2020-01-05] MEDS ORDERED: BuPROPion SR 150 MG TABCR PO SCH (09:00)
[2020-01-05] MEDS ORDERED: SIMVASTATIN 20 MG TAB PO SCH (09:00)
--- NOTE | 2020-01-05 10:00 | Surgery Progress Note ---
Date of Service January 05, 2020 Assessment & Plan (1) Rsbkmj-[id number]-fany transgender person: (2) S/P mastectomy: Juan is POD #1 s/p Bilateral Non Cancerous Mastectomy with Free Nipple Grafting. Liposuction was performed. EBL 50cc. Currently, he is afebrile, blood pressure is improved at 127/68, pulse 90. Dr. Quinteros was called. I was able to review patient with her over the phone. Details of surgery, post-op details, hospitalist consultation, recent bloodwork, urine, and home medication list reviewed with her. Episode of post-operative hypotension yesterday evening. IVF were increased and blood pressure is improved. Juan states that he is feeling well this morning compared to yesterday evening. Dr. Quinteros recommended orthostatics be ordered. Order was placed. She also recommends that patient's Torsemide be held until post-operative visit at [facility] office. Post-op anemia- most likely dilutional due to increase in IVF. Lactic acid elevated in post-op period- is now within normal limits. Possible UTI- Patient denies pre-op dysuria, increased urinary frequency or urinary urgency. Will remove kelley catheter and have patient ambulate to restroom with nursing assistance. Patient was started on cefepime and urine cultures were taken. Discussed with Dr. Quinteros that free nipple graft patients are sent home with abx. Will send prescription for Bactrim to patient's pharmacy. We will continue to follow urine culture close in case antibiotic adjustment needs to be made. Current plan and recommendations were reviewed with Dr. Joel. Dr. Quinteros is comfortable with possible discharge this afternoon with close follow-up. Possible discharge this afternoon. We will return at lunchtime to re-evaluate patient. I did personally speak with patient's nurse and reviewed current orders. She is aware that I will be returning at lunchtime to evaluate patient. Discharge instructions were reviewed with patient. He is aware that he is not able to shower until nipple bolsters are removed next week in our office. He is to keep binder on at all times. We discussed drain care and management. He is aware that he is to record drain output amounts separately. He will begin antibiotic, Bactrim, when discharged home. All questions answered. Admission and Anticipated Discharge Date Admission Date: January 04, 2020 Subjective Juan is resting in bed this morning- I reviewed how the evening went with him. He states that yesterday evening when he attempted to get up to use the restroom he felt unsteady on his feet and was unable to make it to the restroom. His blood pressure was checked and it was found to be 68/48. Consult was placed to medicine for evaluation. Kelley catheter was placed yesterday evening, urine sample was collected and blood work was completed. Juan states that this morning he is feeling much better. Pain is well-controlled. He feels that he would be able to ambulate to restroom. He denies nausea and states that he feels hungry for breakfast. Physical Exam Physical Exam: On physical exam- Pulse 90, BP 127/68, Temp 36.[address]- clean and dry. Nipple bolsters in place bilaterally. No signs of infection. Bilateral HARPER drains in place with bloody drainage. Drainage overnight is a ppropriately decreasing. Results & Data ([facility]) Vital Signs (Past 12 Hours) Vital Signs Temp Pulse Resp BP Pulse Ox 01/05/20 07:22 36.9 C 89 18 97/64 L 96 01/05/20 06:00 89 97/63 L 01/05/20 03:45 36.7 C 86 18 86/57 L 96 01/05/20 02:34 101 H 89/60 L 01/05/20 02:00 85 18 83/49 L 96 01/05/20 00:40 93 H 90/57 L 01/04/20 23:53 37.4 C 99 H 18 86/55 L 97 01/04/20 23:30 101 H 20 80/52 L PG Care Time/CCT Total # of Minutes Spent Total Time Spent with Patient: Total time spent is greater than 50% in coordination of care (as documented) at patient's floor/unit and/or counseling patient: Coding Level of Care Code None Diagnoses [id number] transgender person F64.0 S/P mastectomy Z90.10
[2020-01-05] MEDS: MoRPHine SULFATE 2 MG/ML CARP IV PRN (11:13)
[2020-01-05] MEDS: PRIMIDONE 50 MG TAB PO SCH (11:50)
--- NOTE | 2020-01-05 13:27 | Surgery Progress Note ---
Date of Service January 05, 2020 Assessment & Plan (1) Blwpod-ap-neis transgender person: (2) S/P mastectomy: Juan is much improved from this morning. He states that he is feeling well and is eager to get home. Vital signs are stable. He is tolerating a regular diet. Corley catheter removed. He has not tried to go to the restroom yet. Surgical dressings in place with binder. HARPER drains x2 in place. Barb was instructed in drain care and management. She is aware that she will be helping Juan record drain output 2-3 times per day. We discussed that he is not able to shower until directed. He is aware that antibiotic, Bactrim, has been sent to his pharmacy. He will begin antibiotic today. Home medication list was reviewed with Juan and he is aware of medications that he is supposed to hold until we see him at his post-op appointment. Urine cultures will be followed. I personally spoke with his nurse, Sumit. She is aware of plan. Juan is ok for discharge today as long as vitals remain stable and he is able to ambulate to the restroom and voids. Follow-up appointment will be January 08 at 2PM. Juan was encouraged to call our office with any questions or concerns. Admission and Anticipated Discharge Date Admission Date: January 04, 2020 Subjective Juan is eating lunch. Barb, patient's neighbor, is at bedside. Juan states that he is feeling much better. He reports that he does have some mild discomfort, but reports that he feels well overall. Corley catheter was removed shortly before I arrived. He has not attempted to get out of bed to go to the restroom yet. Barb reports that she will be helping Juan as he recovers from surgery. Physical Exam Physical Exam: On physical exam- HARPER drains in place with appropriate serosang drainage. Surgical dressings, bilateral nipple bolsters in place. Faint ecchymo sis present bilaterally. There are no signs of infection, hematoma, or seroma on examination. Results & Data ([facility]) Vital Signs (Past 12 Hours) Vital Signs Temp Pulse Resp BP Pulse Ox 01/05/20 08:40 90 18 127/68 98 01/05/20 07:22 36.9 C 89 18 97/64 L 96 01/05/20 06:00 89 97/63 L 01/05/20 03:45 36.7 C 86 18 86/57 L 96 01/05/20 02:34 101 H 89/60 L 01/05/20 02:00 85 18 83/49 L 96 PG Care Time/CCT Total # of Minutes Spent Total Time Spent with Patient: Total time spent is greater than 50% in coordination of care (as documented) at patient's floor/unit and/or counseling patient: Coding Level of Care Code None Diagnoses [id number]-vaxm transgender person F64.0 S/P mastectomy Z90.10
[2020-01-05] MEDS ORDERED: CEFEPIME 2,000 MG in SYRINGE 7.5 ML IV SCH (14:00)
--- NOTE | 2020-01-06 09:50 | Discharge Summary ---
Date of Service January 06, 2020 Admission HPI Per Admitting Provider Juan is here today for non-cancerous mastectomy. History from pre-op noted below: " He is a 59-year-old transgender male, on testosterone for 4 years. He has not noted any decrease in breast size during this time. He states for many years, he has tried to find a surgeon willing to perform this procedure. Apparently he was previously refused due to cardiac issues. However, he recently underwent shoulder surgery, received clearance from his solar sales representative for this, and has discussed mastectomy with his solar sales representative as well, who feels he would be an acceptable risk for surgery. He desires to undergo mastectomy due to breast pain, as well as large breast size inconsistent with gender identity. He is also bothered by lateral extension of the breasts into the axillary area. Goal is to be able to be shirtless." Admission Exam Per Admitting Provider see admission H&P Principal Diagnosis yqyclx-oj-rprr transgender person, s/p bilateral non-cancerous mastectomy with free nipple graft Discharge Exam On physical exam- HARPER drains in place with appropriate serosang drainage. Surgical dressings, bilateral nipple bolsters in place. Faint ecchymosis present bilaterally. There are no signs of infection, hematoma, or seroma on exam ination. Discharge Data Allergies Allergy/AdvReac Type Severity Reaction Status Date / Time latex Allergy Mild Rash Verified 01/04/20 06:30 adhesive tape Allergy Unknown Rash Verified 01/04/20 06:30 amoxicillin Allergy Unknown Rash Verified 01/04/20 06:30 hydromorphone [From Dilaudid] AdvReac Severe Rash,LIGHTHEADED, Verified 01/04/20 06:30 VERY HOT doxycycline AdvReac Unknown Rash Verified 01/04/20 06:30 lisinopril AdvReac Unknown Unknown Verified 01/04/20 06:30 morphine AdvReac Unknown HIGH Verified 01/04/20 06:30 DOSES-FALLS ASLEEP/CAN'T WAKE UP! NSAIDS (Non-Steroidal AdvReac Unknown GI BLEED Verified 01/04/20 06:30 Anti-Inflamma pregabalin [From Lyrica] AdvReac Unknown Confusion,A Verified 01/04/20 06:30 NGER topiramate [From Topamax] AdvReac Unknown Unknown Verified 01/04/20 06:30 Consultations 01/04/20 21:30 Consult Hospitalist Routine Procedures Performed Operation Date: 01/04/20 07:30 Actual Procedures p Bilateral Non Cancerous Mastectomy with Free Nipple Grafting(Bilateral) - Shahrzad Joel MD Hospital Course (1) S/P mastectomy: (2) Pdsmcd-ij-bkeb transgender person: Juan is a lqjotv-kg-vvtn transgender person who presented for bilateral non-cancerous mastectomy with free nipple graft. He was taken to the OR and underwent above procedure with no intraoperative complications. He was taken to recovery and transferred to [facility] for observation and overnight pain control. The patient had a hypotensive episode overnight and a hospitalist consult was placed. Hospitalist ordered multiple studies including UA, lactic acid, and kelley cath placed. He was closely monitored overnight and POD#1 VSS and labs normalized. On exam, binder and bolster dressing in place. Drains with appropriate serosang output. He was discharged home with PO Bactrim for possible UTI. Patient was instructed to follow-up in the office. Total Time Total Time Spent Total Time Spent (In Minutes): 30 Total Time Includes: Examination of the Patient, Discharge Planning, Medication Reconciliation and Communication With Other Providers Discharge Plan Discharge Items Patient Disposition: Home - Self-Care Reason For Visit: Gender Dysphoria Discharge Diagnosis: Gender Dysphoria Activity: As commented below Non-emergency contact: Surgeon Call non-emergency contact if: you have any medication questions, your pain is not controlled, your temperature is above 101.5, your wound has increased redness and your wound has increased drainage Follow-up/Referrals: Manuela Wilcox DO [Primary Care Provider] - Diet: Regular Addtl Attending Provider Instructions: ACTIVITY RECOMMENDATIONS: __Normal activities _X_No bending, lifting or straining __No driving __Driving allowed when you are off pain medications _X_Walking permitted __You should have help at home for ___ days DRESSINGS: __No dressings required _X_Keep surgical binder, dressings dry/in place until first office visit __Remove dressings ___ and leave dressings off __Apply ice ___ days __Remove dressings and reapply garment __Apply antibiotic ointment (Bacitracin, Neosporin, etc) to wounds 3-4 times/day for 10 days BATHING: _X_Keep dressings dry _X_Sponge bathing permitted, but keep surgical dressings dry. __Showering permitted _X_No swimming, hot tubs or soaking in a tub MEDICATIONS: Resume previous medications unless instructed otherwise by your surgeon- Patient instructed to hold Torsemide and Celebrex until first post-op office visit. Patient instructed to not begin Clindamycin antibiotic. Will be taking Bactrim antibiotic instead. _X_Do not use aspirin, Motrin, Advil or Ibuprofen as these may promote bleeding. Please use Tylenol. _X_Prescription(s) provided: Prescription for post-op pain medication and antibiotic (Bactrim) sent to patient's pharmacy. Please begin Bactrim at discharge. Please take as directed. OTHER INSTRUCTIONS: _X_Record drain output 2-3 times per day SPECIAL CARE INSTRUCTIONS: * It is normal to have a mild fever after surgery. If your temperature is higher than 101.5 degrees F, please call the office at [phone]. * Constipation is a typical side effect of pain medication. An [id number]-[id number] stool softener will help relieve this. * Leaking around surgical drains may occur and should not cause concern. Sometimes these drains become clogged. If this happens, remove the bulb and milk the clot out of the tube, then replace the bulb. * Drainage from wounds after liposuction is normal and should be expected. Garments will become soiled. You should protect furniture and bedding. This drainage should mostly subside within 2-3 days. Leave garments in place unless instructed to remove them. * If you have unusual drainage from a wound or are concerned you have an infection or have any questions or concerns, please call the office at [phone]. FOLLOW UP VISIT: You have a follow-up visit scheduled for Thursday, January 09, 2020 at 2:00PM. If you are unable to make this appointment, please call our office at [phone]. Pending Studies at Discharge: Yes Studies:: Pathology report. Stand-Alone Forms: My [employer], Smoking Cessation Medications and DC Order Prescriptions: New sulfamethoxazole-trimethoprim [Bactrim DS] 800-160 mg tablet 1 tab PO Q12H 10 Days Qty: 20 RF: 0 Continued loratadine [Claritin] 10 mg Tablet 10 mg PO QAM RF: 0 Linzess 290 mcg Capsule 290 mcg PO QAM RF: 0 tolterodine 2 mg Capsule,Extended Release 24hr 2 mg PO HS RF: 0 bupropion HCl [Wellbutrin SR] 150 mg Tablet Sustained-Release 12 Hr 150 mg PO QAM RF: 0 donepezil [Aricept] 10 mg Tablet 10 mg PO QPM RF: 0 simethicone [Gas-X Extra Strength] 125 mg Capsule 125 mg PO BID PRN (Reason: Abdominal Distention) RF: 0 amlodipine 2.5 mg Tablet 2.5 mg PO DAILY PRN (Reason: Hypertension) RF: 0 hydroxyzine HCl 50 mg Tablet 50 mg PO TID RF: 0 ascorbic acid (vitamin C) [Vitamin C] 500 mg Tablet 500 mg PO HS RF: 0 trazodone 100 mg Tablet 200 mg PO HS RF: 0 levothyroxine 50 mcg Tablet 50 mcg PO QAM RF: 0 simvastatin 20 mg Tablet 20 mg PO QAM RF: 0 esomeprazole magnesium [Nexium] 40 mg Capsule,Delayed Release(Dr/Ec) 40 mg PO BID RF: 0 gabapentin 100 mg Capsule 100 mg PO HS RF: 0 risperidone [Risperdal] 0.5 mg Tablet 0.5 mg PO HS RF: 0 buspirone 15 mg Tablet 15 mg PO TID RF: 0 tizanidine [Zanaflex] 2 mg Capsule 2 mg PO DAILY PRN (Reason: Muscle Spasm) RF: 0 cholecalciferol (vitamin D3) [Vitamin D3] 5,000 unit Tablet 5,000 unit PO QPM RF: 0 testosterone 1.62 % (20.25 mg/1.25 gram) Gel In Packet 3 packet TRANSDERMAL TID RF: 0 Simbrinza 1-0.2 % Drops,Suspension 1 drp OPHTHALMIC (EYE) BID RF: 0 Trintellix 20 mg Tablet 20 mg PO QAM RF: 0 multivitamin Tablet 1 tab PO QAM RF: 0 primidone [Mysoline] 50 mg Tablet 50 mg PO BID RF: 0 promethazine 25 mg Tablet 25 mg PO DAILY PRN (Reason: Nausea) RF: 0 morphine 15 mg Tablet Extended Release 15 mg PO Q12H RF: 0 potassium chloride 20 mEq Tablet Extended Release 20 meq PO BID RF: 0 dimenhydrinate [Dramamine] 50 mg Tablet 50 mg PO TID PRN (Reason: Vertigo) RF: 0 albuterol sulfate 90 mcg/actuation Hfa Aerosol Inhaler 2 puff INHALATION Q6H PRN (Reason: Wheezing) RF: 0 Discontinued clindamycin HCl 300 mg capsule 300 mg PO TID 7 Days Qty: 21 RF: 0 celecoxib [Celebrex] 200 mg Capsule 200 mg PO QPM RF: 0 torsemide 10 mg Tablet 10 mg PO QAM RF: 0 aspirin [Aspir-81] 81 mg Tablet,Delayed Release (Dr/Ec) 81 mg PO QAM RF: 0 Discharge Orders: Discharge Order (Routine); Ordered 01/05/20 Ordered By: Brenda Cline/Other Patient Handouts: Prediabetes, Diabetes: Meal Planning, A1C Admission Data Admit Date/Time: 01/04/20 12:46 Attending Provider: Shahrzad Joel Admit Provider: Nevaeh Richards Primary Care Provider: Manuela Wilcox Other Providers: Delmi Quinteros Other Interventions: Discharge Summary Assessment (RN) Last Done: 01/05/20 14:38 Coding Level of Care Code 56120 OBS Care - Discharge Diagnoses S/P mastectomy Z90.10 Fvmpzh-[id number]-[id number] transgender person F64.0
== END 2020-01-05 15:15 | disposition home or self-care (01) ==
LOC: 3N 05:58 → ASU 05:58

== ENCOUNTER 2020-05-15 16:30 | Inpatient (IN) ==
[2020-05-15] MEDS ORDERED: CEFEPIME 2,000 MG/20 ML VIAL IV STA (17:04)
--- NOTE | 2020-05-15 17:13 | Emergency Department Note ---
Impression & Plan Pseudomonas infection, Hypertension, Lqxmgz-hh-nrvj transgender person ED Provider Note NAME: CHIP GONZALEZ AGE: 59 SEX: M : 1960 ARRIVES VIA: Walk-In INFORMANT: Patient ED PROVIDER(S): Myles Parisi DO CHIEF COMPLAINT: Pseudomonas infection HPI: Patient is a 59-year-old male who presents to the ER who is transgender transitioning from female to male for infected chest wound on right chest. Patient had a vasectomy bilaterally done by Dr. Joel in early December. Since then he has been following with wound care clinic and had a culture obtain ed of his right breast wound. This was found to contain Pseudomonas. Patient was referred in for wound care clinic for treatment. Denies any fevers. No chest pain or shortness of breath. No belly pain nausea vomiting or diarrhea. ROS: See above HPI for pertinent positives & negatives. A total of 10 systems reviewed and were otherwise negative. PAST MEDICAL HISTORY:See Below PAST SURGICAL HISTORY:See Below FAMILY HISTORY:See Below SOCIAL HISTORY:See Below HOME MEDICATIONS:See Below ALLERGIES:See Below VITALS:See Below PHYSICAL EXAMINATION: GENERAL: Sitting up in bed, alert, well appearing, well nourished, no distress, non-toxic EYE EXAM: normal conjunctiva. CHEST: Right breast with tunneling wound. Packing in place. No drainage or surrounding erythema. OROPHARYNX: mask in place LUNGS: Clear to auscultation. Normal chest wall mechanics HEART: no murmurs, S1 normal and S2 normal ABDOMEN: abdomen soft, non-tender, normo-active bowel sounds, no masses, no rebound or guarding. UPPER EXTREMITIES: upper extremities are grossly normal. LOWER EXTREMITIES: No pitting edema. NEURO EXAM: Normal sensorium, cranial nerves II-XII grossly intact, normal speech, no gross weakness of arms, no gross weakness of legs. MEDICAL DECISION MAKING: Patient is a 59-year-old male who presents the ER referred in wound care for persistent infection status post right breast mastectomy which currently out Pseudomonas. IV was established blood work was obtained. Labs show no significant leukocytosis or anemia. Afebrile. BMP with LFTs bilirubin and lipase was unremarkable. Covid was negative. Patient was given a dose of IV cefepime after review of cultures. Discussed with the hospitalist and patient was admitted for further work-up. Will defer for any additional imaging to them. Triage Nursing notes reviewed. Limited review of prior medical records performed Vital Signs: reviewed and remarkable for no significant abnormalities Differential diagnosis: Cellulitis, abscess, MRSA infection, DVT, necrotizing fasciitis, dermatitis, drug eruption, allergic reaction, as well as other pathologies. ER treatment provided: See below Diagnostics interpreted by me: ECG: none Cardiac Monitoring: An order was placed for continuous cardiac monitoring. The monitor shows a rate of 82 with sinus rhythm. Laboratory studies: As stated above and show below. Imaging studies: none Consultation(s): Discussed with Manuela Warren for further evaluation Procedures: none Critical Care: None Past Med/Surg History Medical History Anxiety Asthma And emphysema- controlled and stable- follows with pulm Bipolar disorder Cardiac murmur s/p mitral valve replacement 2006 Chronic diastolic CHF (congestive heart failure) Chronic obstructive pulmonary disease WELL CONTROLLED PER PT Chronic pain Depression Shulhq-nx-hggh transgender person Fibromyalgia No recent flares - chronic pain GERD (gastroesophageal reflux disease) Well controlled and stable Glaucoma Legally blind- follows with eye doctor routinely Hx MRSA infection LEFT KNEE > - NOT ACTIVE Hyperlipidemia Hypertension Hypothyroidism JUN (iron deficiency anemia) Legally blind Migraine Multiple sclerosis DX'D 20 YRS AGO-F/U DR HO/[place] [facility] [place] [facility] [place] STABLE - ISSUES WITH AMBULATION Obesity GILDARDO (obstructive sleep apnea) Cannot tolerate CPAP Restless leg syndrome SOB (shortness of breath) on exertion ON OCC Stage III chronic kidney disease FOLLOWS DR. PALMA > [facility] Urinary incontinence, nocturnal enuresis Surgical History H/O eye surgery MANY X BILAT-RETINAL, FOR GLAUCOMA, ETC H/O knee surgery X 5 OPEN left History of adenoidectomy History of arthroscopy LEFT X2 /RIGHT SHOULDER History of section x1 History of colonoscopy History of esophagogastroduodenoscopy (EGD) WITH DILITATION History of heart valve replacement [id number] History of hysterectomy PARTIAL History of laparotomy X 3-4-POLYPS History of tonsillectomy History of tooth extraction S/P mastectomy Family History Grandfather (Maternal) Family history of diabetes mellitus Social History Smoking Status: Former smoker Second Hand Exposure: No; Hx Alcohol Use: Yes Alcohol type: beer Hx Substance Use: No Preferred Language: Kosovan Communication Ability: Effective Forest Officer Required: No Beliefs That Will Affect Care: None Current Living Situation: Alone Other Information That Helps Us Care for You: No Feels Safe at Home: Yes Safety Concerns: Feels Safe At This Time Assistive Devices: Cane Allergies Allergies Allergy/AdvReac Type Severity Reaction Status Date / Time latex Allergy Mild Rash Verified 04/13/20 14:40 adhesive tape Allergy Unknown Rash Verified 04/13/20 14:40 amoxicillin Allergy Unknown Rash Verified 04/13/20 14:40 hydromorphone [From Dilaudid] AdvReac Severe Rash,LIGHTHEADED, Verified 05/15/20 18:57 VERY HOT doxycycline AdvReac Unknown Rash Verified 04/13/20 14:40 lisinopril AdvReac Unknown Unknown Verified 04/13/20 14:40 morphine AdvReac Unknown HIGH Verified 04/13/20 14:40 DOSES-FALLS ASLEEP/CAN'T WAKE UP! NSAIDS (Non-Steroidal AdvReac Unknown GI BLEED Verified 04/13/20 14:40 Anti-Inflamma pregabalin [From Lyrica] AdvReac Unknown Confusion,A Verified 04/13/20 14:40 NGER topiramate [From Topamax] AdvReac Unknown Unknown Verified 04/13/20 14:40 Home Meds Home Medications Medication Instructions Recorded Confirmed Simbrinza 1 drp OPB BID 03/09/19 05/15/20 Trintellix 20 mg PO QAM 03/09/19 05/15/20 albuterol sulfate 2 puff INHALATION QID PRN 03/09/19 05/15/20 amlodipine 2.5 mg PO DAILY PRN 03/09/19 05/15/20 buspirone 15 mg PO TID 03/09/19 05/15/20 cholecalciferol (vitamin D3) 5,000 unit PO QPM 03/09/19 05/15/20 [Vitamin D3] dimenhydrinate [Dramamine] 50 mg PO TID PRN 03/09/19 05/15/20 donepezil [Aricept] 10 mg PO QPM 03/09/19 05/15/20 esomeprazole magnesium [Nexium] 40 mg PO BID 03/09/19 05/15/20 hydroxyzine HCl 50 mg PO TID PRN 03/09/19 05/15/20 levothyroxine 50 mcg PO QAM 03/09/19 05/15/20 morphine 15 mg PO Q12H 03/09/19 05/15/20 multivitamin 1 tab PO QAM 03/09/19 05/15/20 potassium chloride 20 meq PO BID 03/09/19 05/15/20 primidone [Mysoline] 150 mg PO DAILY 03/09/19 05/15/20 promethazine 25 mg PO Q8H PRN 03/09/19 05/15/20 risperidone [Risperdal] 0.5 mg PO QAM 03/09/19 05/15/20 simethicone [Gas-X Extra Strength] 125 mg PO BID PRN 03/09/19 05/15/20 simvastatin 20 mg PO QAM 03/09/19 05/15/20 testosterone 3 packet TRANSDERMAL TID 03/09/19 05/15/20 tizanidine [Zanaflex] 2 mg PO DAILY PRN 03/09/19 05/15/20 trazodone 200 mg PO HS 03/09/19 05/15/20 Linzess 290 mcg PO QAM 12/09/19 05/15/20 loratadine [Claritin] 10 mg PO QAM 12/09/19 05/15/20 aspirin [Aspirin Low Dose] 81 mg PO DAILY 05/15/20 05/15/20 bupropion HCl 300 mg PO QAM 05/15/20 05/15/20 gabapentin 300 mg PO HS 05/15/20 05/15/20 gabapentin 600 mg PO TID 05/15/20 05/15/20 iron,carbonyl-vitamin C [Vitron-C] 1 tab PO BID 05/15/20 05/15/20 ketorolac 1 drp OPL QID 05/15/20 05/15/20 ocrelizumab 300 mg IV USEASDIRECTD 05/15/20 05/15/20 risperidone 1 mg PO QAM 05/15/20 05/15/20 risperidone 2 mg PO HS 05/15/20 05/15/20 ropinirole 1 mg PO HS 05/15/20 05/15/20 sucralfate 1 g PO BIDM 05/15/20 05/15/20 timolol maleate 1 drp OPB QAM 05/15/20 05/15/20 tolterodine 4 mg PO HS 05/15/20 05/15/20 torsemide 40 mg PO DAILY 05/15/20 05/15/20 Results & Data (ED) Vital Signs Vital Signs - 24 hr 05/15/20 16:34 05/15/20 17:05 Temperature 36.6 C Temperature Source Temporal Artery Scan Pulse Rate 88 Respiratory Rate 20 Respiratory Effort / Characteristics Non-Labored Spontaneous Respiratory Depth Normal Blood Pressure 140/87 Blood Pressure Mean 104 Blood Pressure Position Sitting Pulse Oximetry 94 94 Oxygen Delivery Method Room Air Room Air Sepsis Recent Fever Within 48 Hours No Sepsis New/Unexplained Change in Mental Status No Sepsis Action Taken by Nursing No Action Required Laboratory Data Result diagrams: 05/15/20 17:20 05/15/20 17:20 Lab Results 05/15/20 05/15/20 Range/Units 17:20 17:20 WBC 7.87 (4.8-10.8) K/uL RBC 5.72 (4.7-6.1) M/uL Hgb 13.9 L (14.0-18.0) g/dL Hct 43.4 (42-52) % MCV 75.9 L (80-100) fL MCH 24.3 L (25-34) pg MCHC 32.0 (32-36) g/dL RDW Std Deviation 70.1 H (36.4-46.3) fL RDW Coeff of Ortiz 25.7 H (11.5-14.5) % Plt Count 284 (130-400) K/uL MPV 10.3 (7.4-10.4) fL Immature Gran % (Auto) 0.4 % Neut % (Auto) 56.1 % Lymph % (Auto) 22.2 % [place] % (Auto) 14.4 % Eos % (Auto) 5.6 % Baso % (Auto) 1.3 % Neut # (Auto) 4.42 (1.4-6.5) K/uL Lymph # (Auto) 1.75 (1.2-3.4) K/uL [place] # (Auto) 1.13 H (0.11-0.59) K/uL Eos # (Auto) 0.44 (0-0.5) K/uL Baso # (Auto) 0.10 (0-0.2) K/uL Immature Gran # (Auto) 0.03 H (0.00-0.02) K/uL Anisocytosis Present Sodium 138 (136-145) mmol/L Potassium 3.7 (3.5-5.1) mmol/L Chloride 107 (98-107) mmol/L Carbon Dioxide 26 (21-32) mmol/L Anion Gap 5.0 (3-11) BUN 11 (7-18) mg/dl Creatinine 1.40 (0.6-1.4) mg/dl Est Cr Clr Drug Dosing 59.2 ml/min Est GFR ( Amer) 63.7 Est GFR (Non-Af Amer) 55.0 BUN/Creatinine Ratio 7.9 L (10-20) Glucose 98 (70-99) mg/dl Calcium 8.5 (8.5-10.1) mg/dl Total Bilirubin 0.3 (0.2-1) mg/dl AST 16 (15-37) U/L ALT 18 (12-78) U/L Alkaline Phosphatase 68 (45-117) U/L Total Protein 6.6 (6.4-8.2) gm/dl Albumin 3.7 (3.4-5.0) gm/dl Globulin 2.9 (2.5-4.0) gm/dl Albumin/Globulin Ratio 1.3 (0.9-2) Lipase 57 L (73-393) U/L Administered Medications Discontinued Medications Cefepime HCl (Maxipime) 2,000 mg in 20 mls @ 5 mls/min IV NOW STA; Protocol Stop: 05/15/20 17:07 Last Admin: 05/15/20 18:17 Dose: 5 mls/min Documented by: [id number] Discharge Plan Visit Data Chief Complaint: Infection Stated Complaint: INFECTION ED Provider: Myles Parisi Discharge Problem: Pseudomonas infection, Hypertension, Okcufd-bw-dext transgender person Patient Disposition: Admitted As Inpatient Discharge Instructions Interventions: ED Discharge Assessment Last Done: 05/15/20 18:44 Discharge Problem: Hypertension Qualifiers: Hypertension type: unspecified Qualified Code(s): I10 - Essential (primary) hypertension
[2020-05-15 17:35] LABS: Basophils % (auto) 1.3 %; Eosinophils # (auto) 0.44 K/uL (0-0.5); Eosinophils % (auto) 5.6 %; Hematocrit (blood only) 43.4 % (42-52); Hemoglobin 13.9 g/dL (14.0-18.0); Immature Granulocytes # (auto) 0.03 K/uL (0.00-0.02); Immature Granulocytes % (auto) 0.4 %; Lymphocytes # (auto) 1.75 K/uL (1.2-3.4); Lymphocytes % (auto) 22.2 %; Mean Corpuscular Hemoglobin 24.3 pg (25-34); Mean Corpuscular Volume 75.9 fL (80-100); Mean Platelet Volume 10.3 fL (7.4-10.4); Monocytes # (auto) 1.13 K/uL (0.11-0.59); Monocytes % (auto) 14.4 %; Neutrophils # (auto) 4.42 K/uL (1.4-6.5); Neutrophils % (auto) 56.1 %; Platelet Count 284 K/uL (130-400); RDW Coefficient of Variation 25.7 % (11.5-14.5); RDW Standard Deviation 70.1 fL (36.4-46.3); Red Blood Count 5.72 M/uL (4.7-6.1); White Blood Count 7.87 K/uL (4.8-10.8)
[2020-05-15 17:54] LABS: Albumin Level 3.7 gm/dl (3.4-5.0); BUN Creatinine Ratio 7.9 (10-20); Calcium 8.5 mg/dl (8.5-10.1); Creatinine Clr Calc Pharmacy 59.2 ml/min; Est GFR (African American) 63.7; Potassium 3.7 mmol/L (3.5-5.1)
[2020-05-15 17:56] LABS: Albumin Globulin Ratio 1.3 (0.9-2); Bilirubin,Total 0.3 mg/dl (0.2-1); Globulin 2.9 gm/dl (2.5-4.0); Total Protein 6.6 gm/dl (6.4-8.2)
[2020-05-15 19:08] LABS: Anisocytosis Present
[2020-05-15] MEDS ORDERED: amLODIPine BESYLATE 5 MG TAB PO PRN (19:36)
[2020-05-15] MEDS ORDERED: MoRPHine SULFATE CR 15 MG TABCR PO SCH (19:36)
[2020-05-15] MEDS ORDERED: CEFEPIME CONSULT ACTIVE PRN (19:36)
--- NOTE | 2020-05-15 19:53 | History & Physical Report ---
Date of Service May 15, 2020 Assessment & Plan (1) Surgical wound, non healing: (2) Pseudomonas infection: -Admit to [facility] -Patient presenting by referral of the wound clinic for management of nonhealing surgical wound, culture positive for fluoroquinolone resistant Pseudomonas -S/p elective bilateral mastectomies on 01/04/2020 as part of gender reassignment surgery -Nontoxic-appearing -S/p IV cefepime in the ED, continue with -Reconstructive surgery consult, ID consult (3) Hypertension: -BP controlled, utilizes amlodipine on a as needed basis (4) Chronic diastolic CHF (congestive heart failure): -Appears euvolemic, continue home diuretics (5) Stage III chronic kidney disease: -Baseline creatinine runs in the mid 's -Noted to be 1.4 today -Monitor renal functions (6) Multiple sclerosis: -Stable, receives Ocrevus injections every 6 months (7) Bipolar disorder: -Stable, continue home medications (8) Chronic pain: -Continue home dose of morphine (9) DVT prophylaxis: -SCDs, ambulate Admission and Anticipated Discharge Date Admission Date: May 15, 2020 History of Present Illness Chief Complaint: Wound infection Primary Care Provider: Manuela Wilcox DO 59-year-old male with PMH female to male transgender, hypothyroidism, chronic pain syndrome, multiple sclerosis, bipolar disorder, CKD stage III, HTN, iron deficiency anemia, history of bioprosthetic mitral valve replacement, chronic diastolic CHF, and other problems listed below who presents to the ED by referral of wound clinic for management of nonhealing surgical wound. Patient underwent elective bilateral mastectomies on 01/04/2020 as part of gender reassignment surgery. Patient has been having ongoing issues with nonhealing wound of the lateral right mastectomy site. Has been treated with wound VAC. Culture from 05/11/2020 grew fluoroquinolone resistant Pseudomonas. Patient reports he has been feeling well. No fevers or chills. Denies chest pain shortness of breath. No lightheadedness, dizziness, diaphoresis, syncopal events. Denies abdominal pain, nausea, vomiting, diarrhea. No urinary symptoms. In the ED, patient is hemodynamically stable. Labs are unremarkable. Patient was given IV cefepime. Allergies Allergy/AdvReac Type Severity Reaction Status Date / Time latex Allergy Mild Rash Verified 04/13/20 14:40 adhesive tape Allergy Unknown Rash Verified 04/13/20 14:40 amoxicillin Allergy Unknown Rash Verified 04/13/20 14:40 hydromorphone [From Dilaudid] AdvReac Severe Rash,LIGHTHEADED, Verified 05/15/20 18:57 VERY HOT doxycycline AdvReac Unknown Rash Verified 04/13/20 14:40 lisinopril AdvReac Unknown Unknown Verified 04/13/20 14:40 morphine AdvReac Unknown HIGH Verified 04/13/20 14:40 DOSES-FALLS ASLEEP/CAN'T WAKE UP! NSAIDS (Non-Steroidal AdvReac Unknown GI BLEED Verified 04/13/20 14:40 Anti-Inflamma pregabalin [From Lyrica] AdvReac Unknown Confusion,A Verified 04/13/20 14:40 NGER topiramate [From Topamax] AdvReac Unknown Unknown Verified 04/13/20 14:40 Home Medications Medication Instructions Recorded Confirmed Type Simbrinza 1 drp OPB BID 03/09/19 05/15/20 History Trintellix 20 mg PO QAM 03/09/19 05/15/20 History albuterol sulfate 2 puff INHALATION QID PRN 03/09/19 05/15/20 History amlodipine 2.5 mg PO DAILY PRN 03/09/19 05/15/20 History buspirone 15 mg PO TID 03/09/19 05/15/20 History cholecalciferol (vitamin D3) 5,000 unit PO QPM 03/09/19 05/15/20 History [Vitamin D3] dimenhydrinate [Dramamine] 50 mg PO TID PRN 03/09/19 05/15/20 History donepezil [Aricept] 10 mg PO QPM 03/09/19 05/15/20 History esomeprazole magnesium [Nexium] 40 mg PO BID 03/09/19 05/15/20 History hydroxyzine HCl 50 mg PO TID PRN 03/09/19 05/15/20 History levothyroxine 50 mcg PO QAM 03/09/19 05/15/20 History morphine 15 mg PO Q12H 03/09/19 05/15/20 History multivitamin 1 tab PO QAM 03/09/19 05/15/20 History potassium chloride 20 meq PO BID 03/09/19 05/15/20 History primidone [Mysoline] 150 mg PO DAILY 03/09/19 05/15/20 History promethazine 25 mg PO Q8H PRN 03/09/19 05/15/20 History risperidone [Risperdal] 0.5 mg PO QAM 03/09/19 05/15/20 History simethicone [Gas-X Extra Strength] 125 mg PO BID PRN 03/09/19 05/15/20 History simvastatin 20 mg PO QAM 03/09/19 05/15/20 History testosterone 3 packet TRANSDERMAL TID 03/09/19 05/15/20 History tizanidine [Zanaflex] 2 mg PO DAILY PRN 03/09/19 05/15/20 History trazodone 200 mg PO HS 03/09/19 05/15/20 History Linzess 290 mcg PO QAM 12/09/19 05/15/20 History loratadine [Claritin] 10 mg PO QAM 12/09/19 05/15/20 History aspirin [Aspirin Low Dose] 81 mg PO DAILY 05/15/20 05/15/20 History bupropion HCl 300 mg PO QAM 05/15/20 05/15/20 History gabapentin 300 mg PO HS 05/15/20 05/15/20 History gabapentin 600 mg PO TID 05/15/20 05/15/20 History iron,carbonyl-vitamin C [Vitron-C] 1 tab PO BID 05/15/20 05/15/20 History ketorolac 1 drp OPL QID 05/15/20 05/15/20 History ocrelizumab 300 mg IV USEASDIRECTD 05/15/20 05/15/20 History risperidone 1 mg PO QAM 05/15/20 05/15/20 History risperidone 2 mg PO HS 05/15/20 05/15/20 History ropinirole 1 mg PO HS 05/15/20 05/15/20 History sucralfate 1 g PO BIDM 05/15/20 05/15/20 History timolol maleate 1 drp OPB QAM 05/15/20 05/15/20 History tolterodine 4 mg PO HS 05/15/20 05/15/20 History torsemide 40 mg PO DAILY 05/15/20 05/15/20 History Past Med/Surg History Medical History Anxiety Asthma And emphysema- controlled and stable- follows with pulm Bipolar disorder Cardiac murmur s/p mitral valve replacement 2006 Chronic diastolic CHF (congestive heart failure) Chronic obstructive pulmonary disease WELL CONTROLLED PER PT Chronic pain Depression Rdlfqo-qw-gouz transgender person Fibromyalgia No recent flares - chronic pain GERD (gastroesophageal reflux disease) Well controlled and stable Glaucoma Legally blind- follows with eye doctor routinely Hx MRSA infection LEFT KNEE > - NOT ACTIVE Hyperlipidemia Hypertension Hypothyroidism JUN (iron deficiency anemia) Legally blind Migraine Multiple sclerosis DX'D 20 YRS AGO[facility] [place]; STABLE - ISSUES WITH AMBULATION Obesity GILDARDO (obstructive sleep apnea) Cannot tolerate CPAP Restless leg syndrome SOB (shortness of breath) on exertion ON OCC Stage III chronic kidney disease FOLLOWS DR. PALMA > [facility] Urinary incontinence, nocturnal enuresis Surgical History H/O eye surgery MANY X BILAT-RETINAL, FOR GLAUCOMA, ETC H/O knee surgery X 5 OPEN left History of adenoidectomy History of arthroscopy LEFT X2 /RIGHT SHOULDER History of section x1 History of colonoscopy History of esophagogastroduodenoscopy (EGD) WITH DILITATION [facility] of [id number] History of hysterectomy PARTIAL History of laparotomy X 3-4-POLYPS History of tonsillectomy History of tooth extraction S/P mastectomy Family History Grandfather (Maternal) Family history of diabetes mellitus Social History Smoking Status: Former smoker Second Hand Exposure: No; Hx Alcohol Use: Yes Alcohol type: beer Hx Substance Use: No Preferred Language: Bruneian Communication Ability: Effective Migratory Farm Hand Required: No Beliefs That Will Affect Care: None Current Living Situation: Alone Other Information That Helps Us Care for You: No Feels Safe at Home: Yes Safety Concerns: Feels Safe At This Time Assistive Devices: Cane Review of Systems Review of Systems: ROS per HPI, all other systems reviewed and negative Physical Exam Constitutional: WD/WN, vitals as above + obese Eyes: PERRL, conjunctivae normal, anicteric sclerae ENMT: external ear and nose normal, oropharynx normal Respiratory: normal respiratory effort, lungs clear to auscultation Cardiovascular: Rate/Rhythm: regular rate and regular rhythm Vessels: normal peripheral pulses Extremities: no edema Gastrointestinal (Abdomen): normal bowel sounds, soft, nontender, no hepatosplenomegaly Musculoskeletal: no cyanosis or clubbing, extremities motor strength 5/5 Skin: no rashes, warm and dry Wound noted to right lateral mastectomy site, packing in place, no surrounding erythema or active drainage Neurologic: PERRL, EOMI, accommodation nl, no face palsy, no dysarthria Psychiatric: A+Ox3, euthymic affect Results & Data Results & Data ([facility]) Vital Signs (Past 12 Hours) Vital Signs Temp Pulse Pulse Resp BP BP BP 05/15/20 19:25 36.8 C 69 18 179/99 H 179/99 H 05/15/20 17:05 05/15/20 16:34 36.6 C 88 20 140/87 Pulse Ox 05/15/20 19:25 95 05/15/20 17:05 94 05/15/20 16:34 94 Laboratory Results Short CBC 05/15/20 Range/Units 17:20 WBC 7.87 (4.8-10.8) K/uL Hgb 13.9 L (14.0-18.0) g/dL Hct 43.4 (42-52) % Plt Count 284 (130-400) K/uL BMP 05/15/20 17:20 Sodium 138 Potassium 3.7 Chloride 107 Carbon Dioxide 26 BUN 11 Creatinine 1.40 Glucose 98 Calcium 8.5 Liver Function 05/15/20 Range/Units 17:20 Total Bilirubin 0.3 (0.2-1) mg/dl AST 16 (15-37) U/L ALT 18 (12-78) U/L Alkaline Phosphatase 68 (45-117) U/L Albumin 3.7 (3.4-5.0) gm/dl Surface Wound Culture Final 05/13/20-1217 Organism 1 Pseudomonas aeruginosa Quantity Moderate Sens Sensitivities to Follow +MixWound Plus Low Counts of Probable Skin Rianna P aerugino RX [facility] --- --------- Cefepime S <=2 Ceftazidime S 4 Ciprofloxacin R 2 Gentamicin S <=4 Levofloxacin R 4 Meropenem S <=1 Tobramycin S <=4 Pip/Tazo S <=16 Code Status & VTE Plan VTE Prophylaxis Plan VTE Prophylaxis will be ordered: Yes Supervising Physician Co-Signing Physician Notes Attending addendum The patient was seen and examined in medical floor He was admitted from wound clinic with a nonhealing wound involving the right breast/lateral chest wall Denies any symptoms On examination No apparent distress at rest Hemodynamically stable with blood pressure on the upper side Chest-clear to auscultate bilaterally Examination of the local area showed minimal drainage from the wound without any cellulitis. Heart-S1-S2 regular Abdomen-benign Extremities-negative for any edema PSYCHIATRY RESIDENT-alert, awake and oriented x3 Admission labs and imaging studies reviewed Has nonhealing wound involving the right lateral breast area/chest wall with a probable sinus formation Continue with current antibiotic as per culture and sensitivity Surgery consult Agree with assessment and plan as outlined above by Manuela Polo (1) Surgical wound, non healing Encounter type: initial encounter Qualified Code(s): T81.89XA - Other complications of procedures, not elsewhere classified, initial encounter
[2020-05-15] MEDS ORDERED: NON-FORMULARY MEDICATION (Iron,Carbonyl-Vitamin C [Vitron-C] 65 mg iron- 125 mg Tablet,Del PO SCH (21:00)
[2020-05-15] MEDS: GABAPENTIN 600 MG TAB PO SCH (21:44)
[2020-05-15] MEDS: GABAPENTIN 300 MG CAP PO SCH (21:45)
[2020-05-15] MEDS: busPIRone 15 MG TAB PO SCH (21:46)
[2020-05-15] MEDS: risperiDONE 2 MG TABLET PO SCH (21:47)
[2020-05-15] MEDS: DONEPEZIL HCL 10 MG TAB PO SCH (21:47)
[2020-05-15] MEDS: PANTOprazole 40 MG TAB PO SCH (21:47)
[2020-05-15] MEDS: rOPINIRole HCL 1 MG TABLET PO SCH (21:48)
[2020-05-15] MEDS: TOLTERODINE TARTRATE LA 4 MG CAPCR PO SCH (21:48)
[2020-05-15] MEDS: POTASSIUM CHLORIDE CRTAB 20 MEQ TABCR PO SCH (21:48)
[2020-05-15] MEDS: traZODone HCL 100 MG TAB PO SCH (21:48)
[2020-05-15] MEDS: CHOLECALCIFEROL 1,000 UNITS 25 MCG TAB PO SCH (21:49)
[2020-05-15] MEDS: MoRPHine SULFATE CR 15 MG TABCR PO SCH (21:56)
[2020-05-15] MEDS: KETOROLAC 0.5% OP SOLN PER DROP CHARGE OPL SCH (22:00)
[2020-05-16] MEDS ORDERED: TESTOSTERONE: ORDER AWAITING ACTION SCH
[2020-05-16] MEDS: LINZESS: ORDER AWAITING ACTION SCH ×2 (00:02→09:32)
[2020-05-16] MEDS: TRINTELLIX: ORDER AWAITING ACTION SCH ×2 (00:02→09:32)
[2020-05-16] MEDS ORDERED: CEFEPIME 2,000 MG in SYRINGE 0 ML IV SCH (06:00)
[2020-05-16] MEDS: LEVOTHYROXINE SODIUM 50 MCG TABLET PO SCH (06:12)
[2020-05-16 06:13] LABS: Hematocrit (blood only) 42.2 % (42-52); Hemoglobin 13.2 g/dL (14.0-18.0); Mean Corpuscular Hemoglobin 23.8 pg (25-34); Mean Corpuscular Hgb Conc 31.3 g/dL (32-36); Mean Platelet Volume 10.5 fL (7.4-10.4); Platelet Count 255 K/uL (130-400); RDW Coefficient of Variation 25.4 % (11.5-14.5); RDW Standard Deviation 69.6 fL (36.4-46.3); Red Blood Count 5.55 M/uL (4.7-6.1); White Blood Count 7.09 K/uL (4.8-10.8)
[2020-05-16 06:48] LABS: BUN Creatinine Ratio 9.6 (10-20); Calcium 8.7 mg/dl (8.5-10.1); Creatinine Clr Calc Pharmacy 66.8 ml/min; Est GFR (African American) 73.8; Est GFR (Non-African American) 63.7; Potassium 3.8 mmol/L (3.5-5.1)
[2020-05-16 06:54] LABS: Appearance Urine Clear (Clear); Bilirubin Urine Negative (Negative); Blood Urine Negative (Negative); Color Urine Dark Yellow; Glucose Urine UA Negative (Negative); Ketones Urine Trace (Negative); Leukocyte Esterase Urine Negative (Negative); Nitrite Urine Negative (Negative); Protein Urine Negative (Negative); Specific Gravity Urine 1.025 (1.000-1.030); Urobilinogen Urine Negative (Negative); pH Urine 5.5 (4.5-7.5)
[2020-05-16] MEDS ORDERED: TESTOSTERONE GEL TOP SCH ×2 (09:00→16:30)
[2020-05-16] MEDS: ASPIRIN 81 MG ECTAB PO SCH (09:22)
[2020-05-16] MEDS: risperiDONE 1 MG TABLET PO SCH (09:22)
[2020-05-16] MEDS: busPIRone 15 MG TAB PO SCH ×3 (09:22→21:20)
[2020-05-16] MEDS: LORATADINE 10 MG TAB PO SCH (09:23)
[2020-05-16] MEDS: SIMVASTATIN 20 MG TAB PO SCH (09:23)
[2020-05-16] MEDS: buPROPion XL 300 MG TABCR PO SCH (09:23)
[2020-05-16] MEDS: TORSEMIDE 20 MG TAB PO SCH (09:23)
[2020-05-16] MEDS: SUCRALFATE 1 GM TAB PO SCH ×2 (09:24→17:20)
[2020-05-16] MEDS: TIMOLOL MALEATE 0.5% OP SOLN 5 ML BTL OPB SCH (09:24)
[2020-05-16] MEDS: risperiDONE 0.5 MG TABLET PO SCH (09:24)
[2020-05-16] MEDS: GABAPENTIN 600 MG TAB PO SCH ×3 (09:25→21:24)
[2020-05-16] MEDS: PRIMIDONE 50 MG TAB PO SCH (09:25)
[2020-05-16] MEDS: POTASSIUM CHLORIDE CRTAB 20 MEQ TABCR PO SCH ×2 (09:26→21:23)
[2020-05-16] MEDS: SIMBRINZA~NON-FORMULARY PATIENT'S OWN MED OP SCH ×2 (09:30→21:25)
[2020-05-16] MEDS: KETOROLAC 0.5% OP SOLN PER DROP CHARGE OPL SCH ×4 (09:32→20:21)
[2020-05-16] MEDS: PANTOprazole 40 MG TAB PO SCH ×2 (09:33→21:25)
[2020-05-16] MEDS: MoRPHine SULFATE CR 15 MG TABCR PO SCH ×2 (10:17→22:05)
--- NOTE | 2020-05-16 10:47 | Surgery Consultation ---
Date of Consultation May 16, 2020 Assessment & Plan (1) Pseudomonas infection: Juan is being treated with IV cefepime. ID consult pending, may dictate abx coverage. D/C home when able to tolerate PO meds or home IV abx. (2) Surgical wound, non healing: Wound is being managed with outpatient wound care. Wound is to be dressed with Aquacel Ag and optifoam. This was changed today for the patient. Wound dressing can be changed daily while outpatient, resume every other day with home nursing when discharged. There is no surgical intervention needed at this time. 15 minutes were spent on reviewing the patient's chart and writing her note, 15 minutes were spent with the patient, for a total of 30 minutes. (3) Takroa-bf-hyew transgender person: Supervising Physician Co-Signing Physician Notes 59 year old FTM transgender person (pronouns he/him) 4 months s/p noncancerous mastectomies for gender affirmation complicated by hematoma and prolonged wound healing, admitted after wound culture at wound center showed multidrug resistant pseudomonas. He feels well today. He has no erythema, pain, induration, odor, fever or elevated WBC. Wound has substantially decreased in size since early postop and in fact is nearly healed. There is minimal undermining. CT scan recommended by ID due to slow healing and question of abscess; based on exam I think abscess is unlikely. I suspect wound colonization is slowing down healing rather than acute infection. Patient does not want to stay in house for IV abx or go to SNF due to Covid concerns. Will discuss options with primary team and wound center. Will consider changing dressings to acetic acid to help with colonization. History of Present Illness Attending Physician: Juan is being seen today for consultation regarding a non-healing surgical wound. He is s/p bilateral non-cancerous mastectomy for gender dysphoria in 12/2019. The post-surgery course was complicated by a hematoma and surgical wound. He has been following with wound care. Last week, the wound was cultured due to stall in wound progress. Culture demonstrated pseudomonas. Patient is following with Sherlyn SANDERS, and they advised inpatient IV abx. The patient is currently dressing his wound with Aquacel Ag and Optifoam. Home nursing is changing his dressing every other day. He had been using a wound vac, but this was discontinued last week for a vac break. Allergies Allergy/AdvReac Type Severity Reaction Status Date / Time latex Allergy Mild Rash Verified 04/13/20 14:40 adhesive tape Allergy Unknown Rash Verified 04/13/20 14:40 amoxicillin Allergy Unknown Rash Verified 04/13/20 14:40 hydromorphone [From Dilaudid] AdvReac Severe Rash,LIGHTHEADED, Verified 05/15/20 18:57 VERY HOT doxycycline AdvReac Unknown Rash Verified 04/13/20 14:40 lisinopril AdvReac Unknown Unknown Verified 04/13/20 14:40 morphine AdvReac Unknown HIGH Verified 04/13/20 14:40 DOSES-FALLS ASLEEP/CAN'T WAKE UP! NSAIDS (Non-Steroidal AdvReac Unknown GI BLEED Verified 04/13/20 14:40 Anti-Inflamma pregabalin [From Lyrica] AdvReac Unknown Confusion,A Verified 04/13/20 14:40 NGER topiramate [From Topamax] AdvReac Unknown Unknown Verified 04/13/20 14:40 Home Medications Medication Instructions Recorded Confirmed Type Simbrinza 1 drp OPB BID 03/09/19 05/15/20 History Trintellix 20 mg PO QAM 03/09/19 05/15/20 History albuterol sulfate 2 puff INHALATION QID PRN 03/09/19 05/15/20 History amlodipine 2.5 mg PO DAILY PRN 03/09/19 05/15/20 History buspirone 15 mg PO TID 03/09/19 05/15/20 History cholecalciferol (vitamin D3) 5,000 unit PO QPM 03/09/19 05/15/20 History [Vitamin D3] dimenhydrinate [Dramamine] 50 mg PO TID PRN 03/09/19 05/15/20 History donepezil [Aricept] 10 mg PO QPM 03/09/19 05/15/20 History esomeprazole magnesium [Nexium] 40 mg PO BID 03/09/19 05/15/20 History hydroxyzine HCl 50 mg PO TID PRN 03/09/19 05/15/20 History levothyroxine 50 mcg PO QAM 03/09/19 05/15/20 History morphine 15 mg PO Q12H 03/09/19 05/15/20 History multivitamin 1 tab PO QAM 03/09/19 05/15/20 History potassium chloride 20 meq PO BID 03/09/19 05/15/20 History primidone [Mysoline] 150 mg PO DAILY 03/09/19 05/15/20 History promethazine 25 mg PO Q8H PRN 03/09/19 05/15/20 History risperidone [Risperdal] 0.5 mg PO QAM 03/09/19 05/15/20 History simethicone [Gas-X Extra Strength] 125 mg PO BID PRN 03/09/19 05/15/20 History simvastatin 20 mg PO QAM 03/09/19 05/15/20 History testosterone 3 packet TRANSDERMAL TID 03/09/19 05/15/20 History tizanidine [Zanaflex] 2 mg PO DAILY PRN 03/09/19 05/15/20 History trazodone 200 mg PO HS 03/09/19 05/15/20 History Linzess 290 mcg PO QAM 12/09/19 05/15/20 History loratadine [Claritin] 10 mg PO QAM 12/09/19 05/15/20 History aspirin [Aspirin Low Dose] 81 mg PO DAILY 05/15/20 05/15/20 History bupropion HCl 300 mg PO QAM 05/15/20 05/15/20 History gabapentin 300 mg PO HS 05/15/20 05/15/20 History gabapentin 600 mg PO TID 05/15/20 05/15/20 History iron,carbonyl-vitamin C [Vitron-C] 1 tab PO BID 05/15/20 05/15/20 History ketorolac 1 drp OPL QID 05/15/20 05/15/20 History ocrelizumab 300 mg IV USEASDIRECTD 05/15/20 05/15/20 History risperidone 1 mg PO QAM 05/15/20 05/15/20 History risperidone 2 mg PO HS 05/15/20 05/15/20 History ropinirole 1 mg PO HS 05/15/20 05/15/20 History sucralfate 1 g PO BIDM 05/15/20 05/15/20 History timolol maleate 1 drp OPB QAM 05/15/20 05/15/20 History tolterodine 4 mg PO HS 05/15/20 05/15/20 History torsemide 40 mg PO DAILY 05/15/20 05/15/20 History Patient History Medical History Anxiety Asthma And emphysema- controlled and stable- follows with pulm Bipolar disorder Cardiac murmur s/p mitral valve replacement 2006 Chronic diastolic CHF (congestive heart failure) Chronic obstructive pulmonary disease WELL CONTROLLED PER PT Chronic pain Depression Ysvjte-qe-pmhe transgender person Fibromyalgia No recent flares - chronic pain GERD (gastroesophageal reflux disease) Well controlled and stable Glaucoma Legally blind- follows with eye doctor routinely Hx MRSA infection LEFT KNEE > - NOT ACTIVE Hyperlipidemia Hypertension Hypothyroidism JUN (iron deficiency anemia) Legally blind Migraine Multiple sclerosis DX'D 20 YRS AGO-F[facility] [place] STABLE - ISSUES WITH AMBULATION Obesity GILDARDO (obstructive sleep apnea) Cannot tolerate CPAP Restless leg syndrome SOB (shortness of breath) on exertion ON OCC Stage III chronic kidney disease FOLLOWS DR. PALMA > [facility] Urinary incontinence, nocturnal enuresis Surgical History H/O eye surgery MANY X BILAT-RETINAL, FOR GLAUCOMA, ETC H/O knee surgery X 5 OPEN left History of adenoidectomy History of arthroscopy LEFT X2 /RIGHT SHOULDER History of section x1 History of colonoscopy History of esophagogastroduodenoscopy (EGD) WITH DILITATION History of heart [id number] History of hysterectomy PARTIAL History of laparotomy X 3-4-POLYPS History of tonsillectomy History of tooth extraction S/P mastectomy Family History Grandfather (Maternal) Family history of diabetes mellitus Social History Smoking Status: Former smoker Second Hand Exposure: No; Hx Alcohol Use: Yes Alcohol type: beer Hx Substance Use: No Preferred Language: Sinhala Communication Ability: Effective Guest Services Agent Required: No Beliefs That Will Affect Care: None Current Living Situation: Alone Other Information That Helps Us Care for You: No Feels Safe at Home: Yes Safety Concerns: Feels Safe At This Time Assistive Devices: None Review of Systems Review of Systems: All systems reviewed & are unremarkable except as noted in HPI & below Physical Exam Physical Exam: surgical wound right bed with dressing intact. there is a moderate amount of drainage on the aquacel when removed. wound bed is granular, minimal slough. periwound skin is non-erythematous. no detectable odor Results & Data ([facility]) Vital Signs (Past 12 Hours) Vital Signs Temp Pulse Resp BP Pulse Ox 05/16/20 08:08 36.8 C 83 16 124/82 93 05/15/20 23:10 36.6 C 75 16 124/77 95 PG Care Time/CCT Total # of Minutes Spent Total Time Spent with Patient: Total time spent is greater than 50% in coordination of care (as documented) at patient's floor/unit and/or counseling patient: Coding Level of Care Code 54165 Initial Inpt Care Lvl 3 Diagnoses Pseudomonas infection A49.8 Surgical wound, non healing T81.89XA Encounter type: initial encounter [id number] transgender person F64.0 (1) Surgical wound, non healing Encounter type: initial encounter Qualified Code(s): T81.89XA - Other complications of procedures, not elsewhere classified, initial encounter
[2020-05-16] MEDS: ACETAMINOPHEN 325 MG TAB PO PRN (14:02)
[2020-05-16] MEDS: LINACLOTIDE 145 MCG CAPSULE PO SCH (14:03)
[2020-05-16] MEDS: CEFEPIME 2,000 MG in SYRINGE 0 ML IV SCH ×2 (15:22→16:00)
--- NOTE | 2020-05-16 15:35 | Communication Note ---
Date of Service: May 16, 2020 pt admitted with non healing rt chest wall /post mastectomy -surgical wound with wound infection rt chest wall wound culture : Pseudomonas -resistant to Fluoroquinolones ( Levaquin /Cipro ) on Cefepime 2 gm Iv Q 8hrs Sherlyn SANDERS input appreciated -no oral abx option available due to resistance as above . recommends CT chest with contrast to assess deep seated infection /abscess if abscess if present will need I&D for source control pt will need 2 weeks of IV Cefepime if CT chest shows no evidence of abscess or ribs osteomyelitis . pt can not self administer IV abx 3 times daily ( pt is legally blind ) no family members at home to assist in home Iv abx Can not come to [facility] for multiple daily IV abx administrations will need skilled rehab updated by Case management : pt refusing Skilled rehab for IV abx /wants to return home with Oral meds will mitochondrial disorders counselor the patient regarding IV Abx and need skilled rehab CT chest with contrast ordered Purnima Junior MD
[2020-05-16] MEDS ORDERED: Nursing to Pharmacy Communication SCH (16:15)
[2020-05-16] MEDS: TESTOSTERONE GEL TOP SCH ×2 (16:33→21:18)
[2020-05-16] MEDS ORDERED: IOVERSOL 100ml IV ONE (19:00)
--- NOTE | 2020-05-16 19:28 | CT Scan Report ---
CHEST CT WITH CONTRAST CT DOSE: 753.30 mGy.cm HISTORY: rt chest wall infected wound TECHNIQUE: Multiaxial CT images of the chest were performed following the intravenous administration of contrast. A dose lowering technique was utilized adhering to the principles of ALARA. COMPARISON: None. FINDINGS: No pneumothorax. No pleural effusions. Linear density at the base the right lower lobe favo r subsegmental atelectasis or scarring. The central airways are patent. There is a punctate calcified granuloma within the left lung apex. No focal lung consolidations to suggest pneumonia. No suspiciou s lytic or blastic osseous lesions. Poststernotomy changes. A mitral valve prosthesis is noted. No me diastinal or hilar lymphadenopathy. Limited views of the upper abdomen demonstrate a normal liver and spleen. Prior cholecystectomy. The adrenal glands are unremarkable. Normal esophagus. No axillary ly mphadenopathy. Mild calcified plaque within the normal caliber thoracic aorta. The central pulmonary arteries are patent. There is skin thickening and subcutaneous infiltration/edema within the right la teral chest wall. There is also a focal skin ulceration/defect which contains a small amount of fluid and gas within the right lateral chest wall which measures 2.1 x 1.2 cm. This extends to the skin sena rface.. Small linear scarlike density within the subcutaneous fat of the left anterior chest wall. IMPRESSION: There is skin thickening and subcutaneous infiltration/edema within the right lateral chest wall. The re is also a focal skin ulceration/defect which contains a small amount of fluid and gas within the r ight lateral chest wall which measures 2.1 x 1.2 cm. This is open to the skin surface. This is nonspe cific and could be due to a prior incision or small abscess. An underlying ulcerating mass is conside red less likely but not entirely excluded. ACT 112: Negative or not required by law. Electronically signed by: Main Treadwell M.D. 05/16/2020 7:27 PM
[2020-05-16] MEDS: DONEPEZIL HCL 10 MG TAB PO SCH (21:22)
[2020-05-16] MEDS: TOLTERODINE TARTRATE LA 4 MG CAPCR PO SCH (21:22)
[2020-05-16] MEDS: GABAPENTIN 300 MG CAP PO SCH (21:24)
[2020-05-16] MEDS: rOPINIRole HCL 1 MG TABLET PO SCH (21:26)
[2020-05-16] MEDS: risperiDONE 2 MG TABLET PO SCH (21:27)
[2020-05-16] MEDS: traZODone HCL 100 MG TAB PO SCH (21:28)
[2020-05-16] MEDS: CHOLECALCIFEROL 1,000 UNITS 25 MCG TAB PO SCH (21:28)
--- NOTE | 2020-05-16 22:16 | Hospitalist Progress Note ---
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 wound culture positive for fluoroquinolone resistant Pseudomonas no evidence of sepsis appreciate input from Sherlyn SANDERS ( pleaser refer to prior note ) on IV cefepime , needs 2 weeks of tx pt refuses to go to skilled rehab for IV ABx can not do self administration of IV cefepime q8hrs does not have friends or family support -will continue to discuss regarding treatment plan reconstructive surgery Dr Kilpatrick consulted ,appreciate input (3) Hypertension: -BP controlled, (4) Chronic diastolic CHF (congestive heart failure): -Appears euvolemic, continue home diuretics (5) Stage III chronic kidney disease: renal function at baseline (6) Multiple sclerosis: -Stable, receives Ocrevus injections every 6 months (7) Bipolar disorder: -Stable, continue home medications (8) Chronic pain: -Continue home dose of morphine (9) DVT prophylaxis: -SCDs, ambulate Admission and Anticipated Discharge Date Admission Date: May 15, 2020 Subjective Follow up visit for non healing surgical wound s/p mastectomy , pseudomonas wound infection : pt reports he feels fine no fever or chills no pain or discomfort at right chest wall , post mastectomy wound site wants to be discharged home as soon as possible Review of Systems Review of Systems: All systems reviewed & are unremarkable except as noted in HPI & below Constitutional: no fever and no chills Physical Exam Constitutional: WD/WN, vitals as above Eyes: PERRL, conjunctivae normal, anicteric sclerae ENMT: external ear and nose normal, oropharynx normal Neck: trachea midline, no thyromegaly Respiratory: normal respiratory effort, lungs clear to auscultation Cardiovascular: RRR, no murmur, no edema Gastrointestinal (Abdomen): normal bowel sounds, soft, nontender, no hepatosplenomegaly Musculoskeletal: Head/Neck/Chest: + abnormal inspection of chest wall (right chest wall -wound bandage , no drainage , no surrouding erythema , ) Neurologic: PERRL, EOMI, accommodation nl, no face palsy, no dysarthria Psychiatric: A+Ox3, euthymic affect Results & Data Results & Data ([facility]) Vital Signs (Past 12 Hours) Vital Signs Temp Pulse Resp BP Pulse Ox 05/16/20 16:11 37.1 C 81 16 122/78 94 (1) Surgical wound, non healing Encounter type: initial encounter Qualified Code(s): T81.89XA - Other complications of procedures, not elsewhere classified, initial encounter (2) Hypertension Hypertension type: unspecified Qualified Code(s): I10 - Essential (primary) hypertension
[2020-05-17] MEDS: CEFEPIME 2,000 MG in SYRINGE 0 ML IV SCH ×4 (00:17→23:45)
[2020-05-17] MEDS: LEVOTHYROXINE SODIUM 50 MCG TABLET PO SCH (05:53)
[2020-05-17] MEDS: busPIRone 15 MG TAB PO SCH ×3 (08:49→22:08)
[2020-05-17] MEDS: TESTOSTERONE GEL TOP SCH ×3 (08:49→22:05)
[2020-05-17] MEDS: ASPIRIN 81 MG ECTAB PO SCH (08:50)
[2020-05-17] MEDS: PANTOprazole 40 MG TAB PO SCH ×2 (08:50→22:09)
[2020-05-17] MEDS: LORATADINE 10 MG TAB PO SCH (08:50)
[2020-05-17] MEDS: SIMVASTATIN 20 MG TAB PO SCH (08:50)
[2020-05-17] MEDS: TORSEMIDE 20 MG TAB PO SCH (08:50)
[2020-05-17] MEDS: SUCRALFATE 1 GM TAB PO SCH ×2 (08:50→16:52)
[2020-05-17] MEDS: POTASSIUM CHLORIDE CRTAB 20 MEQ TABCR PO SCH ×2 (08:51→22:08)
[2020-05-17] MEDS: GABAPENTIN 600 MG TAB PO SCH ×3 (08:51→22:06)
[2020-05-17] MEDS: LINACLOTIDE 145 MCG CAPSULE PO SCH (08:51)
[2020-05-17] MEDS: risperiDONE 0.5 MG TABLET PO SCH (08:52)
[2020-05-17] MEDS: buPROPion XL 300 MG TABCR PO SCH (08:52)
[2020-05-17] MEDS: risperiDONE 1 MG TABLET PO SCH (08:52)
[2020-05-17] MEDS: PRIMIDONE 50 MG TAB PO SCH (08:52)
[2020-05-17] MEDS: KETOROLAC 0.5% OP SOLN PER DROP CHARGE OPL SCH ×4 (08:53→22:19)
[2020-05-17] MEDS: SIMBRINZA~NON-FORMULARY PATIENT'S OWN MED OP SCH ×2 (08:53→22:19)
[2020-05-17] MEDS: TIMOLOL MALEATE 0.5% OP SOLN 5 ML BTL OPB SCH (08:53)
--- NOTE | 2020-05-17 09:23 | Surgery Progress Note ---
Date of Service May 17, 2020 Assessment & Plan Admission and Anticipated Discharge Date Admission Date: Wound has increased since last week. CT is negative for abscess, which is consistent with clinical findings. He is anxious to go home. He reports anxiety and refusal to go to SNF is due to fear of COVID. We discussed management of his wound with [facility], and are considering applying an irrigating vac with acetic acid wash to treat the colonized wound. We also discussed option for IV abx at home with case management, and will see what options are available for the patient. If insurance will allow, he may be capable of using an elastomeric pump at home to administer medication. if dosing is once daily, he should be able to have a neighbor help administer his medication. Further decisions will be made later today. Mag Martinez is resting comfortably today. He offers no concerns, reports no change in symptoms. He is anxious to go home. Vital signs are stable. CT performed yesterday with results as noted: IMPRESSION: There is skin thickening and subcutaneous infiltration/edema within the right lateral chest wall. There is also a focal skin ulceration/defect which contains a small amount of fluid and gas within the right lateral chest wall which measures 2.1 x 1.2 cm. This is open to the skin surface. This is nonspecific and could be due to a prior incision or small abscess. An underlying ulcerating mass is considered less likely but not entirely excluded. This is consistent with the patient's open surgical wound. Physical Exam Physical Exam: surgical wound right bed with dressing intact. Optifoam and Aquacel Ag removed- moderate drainage noted on Aquacel. Wound measures 2.5 cm length, 1 cm width, 3 cm depth with tunnelling towards 3:00. This is larger than last week. wound bed is granular, minimal slough. periwound skin is non- erythematous. no detectable odor. Cavity irrigated with sterile saline, and wound re-packed with Aquacel Ag and dressed with Optifoam. Results & Data ([facility]) Vital Signs (Past 12 Hours) Vital Signs Temp Pulse Resp BP Pulse Ox 05/17/20 07:52 36.6 C 80 16 124/79 94 05/16/20 23:23 36.7 C 75 16 107/72 92 PG Care Time/CCT Total # of Minutes Spent Total Time Spent with Patient: Total time spent is greater than 50% in coordination of care (as documented) at patient's floor/unit and/or counseling patient: Coding Level of Care Code 74194 Inpt Consult Level 3
[2020-05-17] MEDS: MoRPHine SULFATE CR 15 MG TABCR PO SCH ×2 (10:38→22:04)
[2020-05-17] MEDS ORDERED: ACETIC ACID 0.25% IRRIG SOLN 1000 ML PLCT IR ONE (14:14)
--- NOTE | 2020-05-17 20:31 | Hospitalist Progress Note ---
Date of Service May 17, 2020 Assessment & Plan (1) Surgical wound, non healing: (2) Pseudomonas infection: pt has been doing well discussed regarding home Iv abx therapy will talk with case management regarding -cont infusion of IV cefepime for 2 week, which will allow pt to be return home with home health pt is agreeable with the plan -Patient sent wound clinic for management of nonhealing surgical wound at right mastectomy site -S/p elective bilateral mastectomies on 01/04/2020 as part of gender reassignment surgery wound culture positive for fluoroquinolone resistant Pseudomonas no evidence of sepsis appreciate input from Sherlyn SANDERS ( pleaser refer to prior note ) on IV cefepime , needs 2 weeks of tx pt refuses to go to skilled rehab for IV ABx can not do self administration of IV cefepime q8hrs does not have friends or family support - discuss regarding cont Iv infusion as above reconstructive surgery Dr Kilpatrick consulted ,appreciate input wound vac applied CT chest shows post surgical change , no abscess notes , no indication for surgical I&D (3) Hypertension: -BP controlled, (4) Chronic diastolic CHF (congestive heart failure): -Appears euvolemic, continue home diuretics (5) Stage III chronic kidney disease: renal function at baseline (6) Multiple sclerosis: -Stable, receives Ocrevus injections every 6 months (7) Bipolar disorder: -Stable, continue home medications (8) Chronic pain: -Continue home dose of morphine (9) DVT prophylaxis: -SCDs, ambulate disposition : plan to discharge home after 2-3 days will need arrangements for home IV Abx Admission and Anticipated Discharge Date Admission Date: May 15, 2020 Subjective Follow up visit for non healing surgical wound s/p mastectomy , pseudomonas wound infection : doing well offers no complain tolerating IV antibiotic/Cefepime well has wound vac at Rt chest wall no fever or chills , no shortness of breath Review of Systems Review of Systems: All systems reviewed & are unremarkable except as noted in HPI & below Physical Exam Constitutional: WD/WN, vitals as above Eyes: PERRL, conjunctivae normal, anicteric sclerae ENMT: external ear and nose normal, oropharynx normal Neck: trachea midline, no thyromegaly Respiratory: normal respiratory effort, lungs clear to auscultation Cardiovascular: RRR, no murmur, no edema Gastrointestinal (Abdomen): normal bowel sounds, soft, nontender, no hepatosplenomegaly Musculoskeletal: Head/Neck/Chest: + abnormal inspection of chest wall (right chest wall -wound bandage , no drainage , no surrouding erythema , ) Neurologic: PERRL, EOMI, accommodation nl, no face palsy, no dysarthria Psychiatric: A+Ox3, euthymic affect Results & Data Results & Data ([facility]) Vital Signs (Past 12 Hours) Vital Signs Temp Pulse Resp BP Pulse Ox 05/17/20 16:27 36.9 C 75 16 112/75 94 (1) Surgical wound, non healing Encounter type: initial encounter Qualified Code(s): T81.89XA - Other complications of procedures, not elsewhere classified, initial encounter (2) Hypertension Hypertension type: unspecified Qualified Code(s): I10 - Essential (primary) hypertension
[2020-05-17] MEDS: GABAPENTIN 300 MG CAP PO SCH (22:05)
[2020-05-17] MEDS: rOPINIRole HCL 1 MG TABLET PO SCH (22:05)
[2020-05-17] MEDS: traZODone HCL 100 MG TAB PO SCH (22:06)
[2020-05-17] MEDS: DONEPEZIL HCL 10 MG TAB PO SCH (22:07)
[2020-05-17] MEDS: TOLTERODINE TARTRATE LA 4 MG CAPCR PO SCH (22:07)
[2020-05-17] MEDS: risperiDONE 2 MG TABLET PO SCH (22:07)
[2020-05-17] MEDS: CHOLECALCIFEROL 1,000 UNITS 25 MCG TAB PO SCH (22:09)
[2020-05-18] MEDS: LEVOTHYROXINE SODIUM 50 MCG TABLET PO SCH (06:34)
[2020-05-18 07:36] LABS: Creatinine Clr Calc Pharmacy 45.8 ml/min; Est GFR (African American) 46.7; Est GFR (Non-African American) 40.3
[2020-05-18] MEDS: risperiDONE 0.5 MG TABLET PO SCH (08:43)
[2020-05-18] MEDS: PRIMIDONE 50 MG TAB PO SCH (08:43)
[2020-05-18] MEDS: SIMVASTATIN 20 MG TAB PO SCH (08:43)
[2020-05-18] MEDS: ASPIRIN 81 MG ECTAB PO SCH (08:43)
[2020-05-18] MEDS: risperiDONE 1 MG TABLET PO SCH (08:43)
[2020-05-18] MEDS: SUCRALFATE 1 GM TAB PO SCH ×2 (08:44→17:33)
[2020-05-18] MEDS: PANTOprazole 40 MG TAB PO SCH ×2 (08:44→20:14)
[2020-05-18] MEDS: TESTOSTERONE GEL TOP SCH ×3 (08:44→20:19)
[2020-05-18] MEDS: GABAPENTIN 600 MG TAB PO SCH ×3 (08:44→20:15)
[2020-05-18] MEDS: POTASSIUM CHLORIDE CRTAB 20 MEQ TABCR PO SCH ×2 (08:44→20:18)
[2020-05-18] MEDS: busPIRone 15 MG TAB PO SCH ×3 (08:45→20:17)
[2020-05-18] MEDS: LINACLOTIDE 145 MCG CAPSULE PO SCH (08:45)
[2020-05-18] MEDS: TORSEMIDE 20 MG TAB PO SCH (08:45)
[2020-05-18] MEDS: LORATADINE 10 MG TAB PO SCH (08:46)
[2020-05-18] MEDS: buPROPion XL 300 MG TABCR PO SCH (08:46)
[2020-05-18] MEDS: CEFEPIME 2,000 MG in SYRINGE 0 ML IV SCH ×2 (08:50→20:07)
[2020-05-18] MEDS: KETOROLAC 0.5% OP SOLN PER DROP CHARGE OPL SCH ×4 (09:46→20:14)
[2020-05-18] MEDS: SIMBRINZA~NON-FORMULARY PATIENT'S OWN MED OP SCH ×2 (09:47→20:18)
[2020-05-18] MEDS: TIMOLOL MALEATE 0.5% OP SOLN 5 ML BTL OPB SCH (09:48)
[2020-05-18] MEDS: MoRPHine SULFATE CR 15 MG TABCR PO SCH ×2 (10:25→20:59)
--- NOTE | 2020-05-18 14:43 | Surgery Progress Note ---
Date of Service May 18, 2020 Assessment & Plan (1) Surgical wound, non healing: Juan is doing well. Wound vac is in place and is functioning. He is tolerating vac well. Wound vac will remain in place until 05/21/20. Once vac is removed on Thursday, wound is to be dressed with Aquacel Ag and Optifoam with plans to discharge patient home, if stable. Patient will continue with IV antibiotics (Cefepime) for an additional 2 weeks at home. Coordination of home IV antibiotic therapy by hospitalist team and case management. Once patient is home, home health will resume vac management. Juan is to follow-up with [facility] wound care center. Admission and Anticipated Discharge Date Admission Date: May 15, 2020 Subjective Juan is resting in bed- he states that he is doing well. Wound vac is in place on right chest. He is tolerating wound vac well. He is tolerating his diet. He denies any pain. He is eager for discharge. Physical Exam Physical Exam: On physical exam- wound vac is in place. Vac is functioning. Juan is tolerating vac well. Constitutional: WD/WN, vitals as above no acute distress Respiratory: no respiratory distress Psychiatric: Orientation: oriented x 3 Results & Data ([facility]) Vital Signs (Past 12 Hours) Vital Signs Temp Pulse Resp BP Pulse Ox 05/18/20 08:54 36.5 C 72 20 155/95 H 93 PG Care Time/CCT Total # of Minutes Spent Total Time Spent with Patient: Total time spent is greater than 50% in coordination of care (as documented) at patient's floor/unit and/or counseling patient: Coding Level of Care Code 41320 Subseq Hosp Care Lvl 1 Diagnoses Surgical wound, non healing T81.89XA Encounter type: initial encounter (1) Surgical wound, non healing Encounter type: initial encounter Qualified Code(s): T81.89XA - Other complications of procedures, not elsewhere classified, initial encounter
[2020-05-18] MEDS: SODIUM CHLORIDE 0.9% 1000ML 1,000 ML IV SCH (15:54)
--- NOTE | 2020-05-18 16:23 | Hospitalist Progress Note ---
Date of Service May 18, 2020 Assessment & Plan (1) Surgical wound, non healing: (2) Pseudomonas infection: -Patient sent wound clinic for management of nonhealing surgical wound at right mastectomy site -S/p elective bilateral mastectomies on 01/04/2020 as part of gender reassignment surgery Wound cultures from January and February grew Pseudomonas Patient was treated with p.o. ciprofloxacin to 50 mg twice daily for 3 weeks in February to mid March Patient was seen at the [facility] wound care clinic on March, He has been following very closely with wound today wound care clinic, required wound VAC. Sent [facility] from wound care clinic on May 15, 2020 wound culture positive for fluoroquinolone resistant Pseudomonas Failed out pt treatment with PO antibiotic for infected rt chest wall wound Patient started with IV cefepime 2 g every 8 hours-does not have any p.o. antibiotic option due to resistant organism pt requires inpatient hospital stay for IV antibiotics Appreciate input from [facility] ID: Needs 2 weeks of IV cefepime/ attempt to arrange home IV Abx has been challenging for multiple daily dosing option for continuous infusion discussed with CM , pt will need close nursing supervision while on IV abx -lives alone does not have friend or family support will look into pt's insurance coverage on Thursday Plastic reconstructive surgery following closely. Patient has an wound VAC on, Patient will need continued hospital stay for IV antibiotics, IV fluids (3) Hypertension: -BP controlled, (4) Chronic diastolic CHF (congestive heart failure): -Appears euvolemic, Torsemide on hold for acute renal failure (5) Stage III chronic kidney disease: Acute renal failure on CKD stage III: Baseline creatinine 1.21.3 Creatinine elevated 1.8 today Hold diuretics/torsemide Ordered IV fluids repeat BMP in a.m. Avoid NSAIDs, contrast studies (6) Multiple sclerosis: -Stable, receives Ocrevus injections every 6 months (7) Bipolar disorder: -Stable, continue home medications (8) Chronic pain: -Continue home dose of morphine (9) DVT prophylaxis: -SCDs, ambulate disposition : patient is legally blind will not be able to do self administer of IV antibiotics does not have friend and family support to assist with IV abx administration home health will not be provide that care will need Skilled rehab for IV antibiotics , which pt has been adamantly refusing pt will need to stay over the weekend for arrangements of wound vac at home reached out to Raji ID -no option of Daily IV abx or PO needs to be treated with IV cefepime for 2 weeks to treat infected wound case managment updated Admission and Anticipated Discharge Date Admission Date: May 15, 2020 Subjective Follow up visit for non healing post surgical wound on right chest wall /Pseudomonas infection : says he feels fine has wound vac on right chest wall denies of any pain or discomfort no fever or chills vitals been stable had two episodes of loose bowel movements today no abdominal pain or nausea , upset about home antibiotics arrangements has not been finalized yet pt wants to be discharged home on Thursday . Review of Systems Review of Systems: All systems reviewed & are unremarkable except as noted in HPI & below Physical Exam Constitutional: WD/WN, vitals as above Eyes: PERRL, conjunctivae normal, anicteric sclerae ENMT: external ear and nose normal, oropharynx normal Neck: trachea midline, no thyromegaly Respiratory: normal respiratory effort, lungs clear to auscultation Cardiovascular: RRR, no murmur, no edema Gastrointestinal (Abdomen): normal bowel sounds, soft, nontender, no hepa tosplenomegaly Musculoskeletal: Head/Neck/Chest: + abnormal inspection of chest wall (wound vac present ) Neurologic: PERRL, EOMI, accommodation nl, no face palsy, no dysarthria Psychiatric: A+Ox3, euthymic affect Results & Data Results & Data ([facility]) Vital Signs (Past 12 Hours) Vital Signs Temp Pulse Resp BP Pulse Ox 05/18/20 16:16 36.9 C 87 17 129/86 95 05/18/20 08:54 36.5 C 72 20 155/95 H 93 (1) Surgical wound, non healing Encounter type: initial encounter Qualified Code(s): T81.89XA - Other complications of procedures, not elsewhere classified, initial encounter (2) Hypertension Hypertension type: unspecified Qualified Code(s): I10 - Essential (primary) hypertension
[2020-05-18] MEDS ORDERED: LOPERAMIDE HCL 2 MG CAP PO PRN (17:10)
[2020-05-18] MEDS: LACTOBACILLUS ACIDOPHILUS 1 GM PACK PO SCH (19:06)
[2020-05-18] MEDS: rOPINIRole HCL 1 MG TABLET PO SCH (20:14)
[2020-05-18] MEDS: traZODone HCL 100 MG TAB PO SCH (20:15)
[2020-05-18] MEDS: TOLTERODINE TARTRATE LA 4 MG CAPCR PO SCH (20:15)
[2020-05-18] MEDS: GABAPENTIN 300 MG CAP PO SCH (20:15)
[2020-05-18] MEDS: DONEPEZIL HCL 10 MG TAB PO SCH (20:16)
[2020-05-18] MEDS: risperiDONE 2 MG TABLET PO SCH (20:19)
[2020-05-18] MEDS: CHOLECALCIFEROL 1,000 UNITS 25 MCG TAB PO SCH (20:20)
[2020-05-19] MEDS: SODIUM CHLORIDE 0.9% 1000ML 1,000 ML IV SCH ×3 (01:34→21:18)
[2020-05-19] MEDS: LEVOTHYROXINE SODIUM 50 MCG TABLET PO SCH (05:49)
[2020-05-19] MEDS: LORATADINE 10 MG TAB PO SCH (06:18)
[2020-05-19] MEDS: POTASSIUM CHLORIDE CRTAB 20 MEQ TABCR PO SCH ×2 (06:20→21:15)
[2020-05-19] MEDS: CEFEPIME 2,000 MG in SYRINGE 0 ML IV SCH ×2 (07:45→20:07)
[2020-05-19] MEDS: SUCRALFATE 1 GM TAB PO SCH ×2 (07:45→15:58)
[2020-05-19] MEDS: LACTOBACILLUS ACIDOPHILUS 1 GM PACK PO SCH ×3 (07:45→17:22)
[2020-05-19] MEDS: KETOROLAC 0.5% OP SOLN PER DROP CHARGE OPL SCH ×4 (07:46→21:22)
[2020-05-19] MEDS: busPIRone 15 MG TAB PO SCH ×3 (07:46→21:14)
[2020-05-19] MEDS: TESTOSTERONE GEL TOP SCH ×3 (07:46→21:18)
[2020-05-19] MEDS: GABAPENTIN 600 MG TAB PO SCH ×3 (07:47→21:16)
[2020-05-19] MEDS: LINACLOTIDE 145 MCG CAPSULE PO SCH (07:47)
[2020-05-19] MEDS: ASPIRIN 81 MG ECTAB PO SCH (07:47)
[2020-05-19] MEDS: SIMBRINZA~NON-FORMULARY PATIENT'S OWN MED OP SCH ×2 (07:47→21:16)
[2020-05-19] MEDS: risperiDONE 1 MG TABLET PO SCH (07:48)
[2020-05-19] MEDS: risperiDONE 0.5 MG TABLET PO SCH (07:48)
[2020-05-19] MEDS: PANTOprazole 40 MG TAB PO SCH ×2 (07:48→21:16)
[2020-05-19] MEDS: PRIMIDONE 50 MG TAB PO SCH (07:48)
[2020-05-19] MEDS: SIMVASTATIN 20 MG TAB PO SCH (07:49)
[2020-05-19] MEDS: buPROPion XL 300 MG TABCR PO SCH (07:49)
[2020-05-19] MEDS: TIMOLOL MALEATE 0.5% OP SOLN 5 ML BTL OPB SCH (07:49)
[2020-05-19 09:12] LABS: BUN Creatinine Ratio 9.1 (10-20); Calcium 8.4 mg/dl (8.5-10.1); Creatinine Clr Calc Pharmacy 48.2 ml/min; Est GFR (African American) 49.7; Est GFR (Non-African American) 42.9
[2020-05-19] MEDS: MoRPHine SULFATE CR 15 MG TABCR PO SCH ×2 (10:11→21:17)
--- NOTE | 2020-05-19 17:52 | Hospitalist Progress Note ---
Date of Service May 19, 2020 Assessment & Plan (1) Surgical wound, non healing: (2) Pseudomonas infection: -Patient sent wound clinic for management of nonhealing surgical wound at right mastectomy site -S/p elective bilateral mastectomies on 01/04/2020 as part of gender reassignment surgery Wound cultures from January and February grew Pseudomonas Patient was treated with p.o. ciprofloxacin to 50 mg twice daily for 3 weeks in February to mid March Patient was seen at the [facility] wound care clinic on March, He has been following very closely with wound today wound care clinic, required wound VAC. Sent [facility] from wound care clinic on May 15, 2020 wound culture positive for fluoroquinolone resistant Pseudomonas Failed out pt treatment with PO antibiotic for infected rt chest wall wound Patient started with IV cefepime 2 g every 8 hours-does not have any p.o. antibiotic option due to resistant organism pt requires inpatient hospital stay for IV antibiotics Appreciate input from [facility] ID: Needs 2 weeks of IV cefepime/ attempt to arrange home IV Abx has been challenging for multiple daily dosing option for continuous infusion discussed with CM , pt will need close nursing supervision while on IV abx -lives alone does not have friend or family support will look into pt's insurance coverage on Thursday Plastic reconstructive surgery following closely. Patient has an wound VAC on, Patient will need continued hospital stay for IV antibiotics, IV fluids (3) Hypertension: -BP controlled, (4) Chronic diastolic CHF (congestive heart failure): -Appears euvolemic, Torsemide on hold for acute renal failure (5) Stage III chronic kidney disease: Acute renal failure on CKD stage III: Baseline creatinine 1.21.3 cr improved 1.8-> 1.7 today cont to diuretics/torsemide on IV fluids repeat BMP in a.m. Avoid NSAIDs, contrast studies (6) Multiple sclerosis: -Stable, receives Ocrevus injections every 6 months (7) Bipolar disorder: -Stable, continue home medications (8) Chronic pain: -Continue home dose of morphine (9) DVT prophylaxis: -SCDs, ambulate disposition : patient is legally blind will not be able to do self administer of IV antibiotics does not have friend and family support to assist with IV abx administration home health will not be provide that care will need Skilled rehab for IV antibiotics , which pt has been adamantly refusing pt will need to stay over the weekend for arrangements of wound vac at home reached out to Raji ID -no option of Daily IV abx or PO needs to be treated with IV cefepime for 2 weeks to treat infected wound case managment updated Admission and Anticipated Discharge Date Admission Date: May 15, 2020 Subjective Follow up visit for non healing post surgical wound on right chest wall /Pseudomonas infection : says he feels fine has wound vac on right chest wall denies of any pain or discomfort no fever or chills vitals been stable had two episodes of loose bowel movements today no abdominal pain or nausea , upset about home antibiotics arrangements has not been finalized yet pt wants to be discharged home on Thursday . Physical Exam Constitutional: WD/WN, vitals as above Eyes: PERRL, conjunctivae normal, anicteric sclerae ENMT: external ear and nose normal, oropharynx normal Neck: trachea midline, no thyromegaly Respiratory: normal respiratory effort, lungs clear to auscultation Cardiovascular: RRR, no murmur, no edema Gastrointestinal (Abdomen): normal bowel sounds, soft, nontender, no hepatosplenomegaly Musculoskeletal: Head/Neck/Chest: + abnormal inspection of chest wall (wound vac present ) Neurologic: PERRL, EOMI, accommodation nl, no face palsy, no dysarthria Psychiatric: A+Ox3, euthymic affect Results & Data Results & Data ([facility]) Vital Signs (Past 12 Hours) Vital Signs Temp Pulse Resp BP BP Pulse Ox 05/19/20 16:13 135/79 05/19/20 15:41 36.9 C 82 17 163/101 H 96 05/19/20 07:49 36.7 C 80 20 119/78 94 (1) Surgical wound, non healing Encounter type: initial encounter Qualified Code(s): T81.89XA - Other complications of procedures, not elsewhere classified, initial encounter (2) Hypertension Hypertension type: unspecified Qualified Code(s): I10 - Essential (primary) hypertension
[2020-05-19] MEDS: traZODone HCL 100 MG TAB PO SCH (21:14)
[2020-05-19] MEDS: DONEPEZIL HCL 10 MG TAB PO SCH (21:14)
[2020-05-19] MEDS: TOLTERODINE TARTRATE LA 4 MG CAPCR PO SCH (21:15)
[2020-05-19] MEDS: GABAPENTIN 300 MG CAP PO SCH (21:16)
[2020-05-19] MEDS: rOPINIRole HCL 1 MG TABLET PO SCH (21:17)
[2020-05-19] MEDS: risperiDONE 2 MG TABLET PO SCH (21:17)
[2020-05-19] MEDS: CHOLECALCIFEROL 1,000 UNITS 25 MCG TAB PO SCH (21:17)
[2020-05-20] MEDS: ACETAMINOPHEN 325 MG TAB PO PRN ×3 (00:52→15:51)
[2020-05-20] MEDS: LORATADINE 10 MG TAB PO SCH (05:56)
[2020-05-20] MEDS: SODIUM CHLORIDE 0.9% 1000ML 1,000 ML IV SCH ×2 (05:56→20:14)
[2020-05-20] MEDS: POTASSIUM CHLORIDE CRTAB 20 MEQ TABCR PO SCH ×2 (05:56→19:41)
[2020-05-20] MEDS: LEVOTHYROXINE SODIUM 50 MCG TABLET PO SCH (05:57)
[2020-05-20 07:46] LABS: Creatinine Clr Calc Pharmacy 58.4 ml/min; Est GFR (African American) 62.7; Est GFR (Non-African American) 54.1
[2020-05-20] MEDS: PANTOprazole 40 MG TAB PO SCH ×2 (08:30→19:43)
[2020-05-20] MEDS: risperiDONE 0.5 MG TABLET PO SCH (08:31)
[2020-05-20] MEDS: GABAPENTIN 600 MG TAB PO SCH ×3 (08:31→19:41)
[2020-05-20] MEDS: busPIRone 15 MG TAB PO SCH ×3 (08:31→19:38)
[2020-05-20] MEDS: PRIMIDONE 50 MG TAB PO SCH (08:32)
[2020-05-20] MEDS: SUCRALFATE 1 GM TAB PO SCH ×2 (08:32→15:53)
[2020-05-20] MEDS: buPROPion XL 300 MG TABCR PO SCH (08:32)
[2020-05-20] MEDS: LACTOBACILLUS ACIDOPHILUS 1 GM PACK PO SCH ×3 (08:32→15:53)
[2020-05-20] MEDS: risperiDONE 1 MG TABLET PO SCH ×2 (08:32→19:44)
[2020-05-20] MEDS: ASPIRIN 81 MG ECTAB PO SCH (08:33)
[2020-05-20] MEDS: SIMVASTATIN 20 MG TAB PO SCH (08:33)
[2020-05-20] MEDS: KETOROLAC 0.5% OP SOLN PER DROP CHARGE OPL SCH ×4 (08:33→19:36)
[2020-05-20] MEDS: LINACLOTIDE 145 MCG CAPSULE PO SCH (08:33)
[2020-05-20] MEDS: TIMOLOL MALEATE 0.5% OP SOLN 5 ML BTL OPB SCH (08:34)
[2020-05-20] MEDS: SIMBRINZA~NON-FORMULARY PATIENT'S OWN MED OP SCH ×2 (08:34→19:49)
[2020-05-20] MEDS: TESTOSTERONE GEL TOP SCH ×3 (08:40→19:48)
[2020-05-20] MEDS: CEFEPIME 2,000 MG in SYRINGE 0 ML IV SCH ×2 (08:41→19:55)
[2020-05-20] MEDS: MoRPHine SULFATE CR 15 MG TABCR PO SCH ×2 (10:18→21:03)
[2020-05-20] MEDS ORDERED: POLYETHYLENE (MIRALAX) 17 GM PACK PO PRN (15:14)
[2020-05-20] MEDS: DOCUSATE SODIUM 100 MG CAP PO SCH (15:57)
[2020-05-20] MEDS: DONEPEZIL HCL 10 MG TAB PO SCH (19:37)
[2020-05-20] MEDS: traZODone HCL 100 MG TAB PO SCH (19:39)
[2020-05-20] MEDS: TOLTERODINE TARTRATE LA 4 MG CAPCR PO SCH (19:39)
[2020-05-20] MEDS: GABAPENTIN 300 MG CAP PO SCH (19:42)
[2020-05-20] MEDS: rOPINIRole HCL 1 MG TABLET PO SCH (19:43)
[2020-05-20] MEDS: risperiDONE 2 MG TABLET PO SCH (19:46)
[2020-05-20] MEDS: CHOLECALCIFEROL 1,000 UNITS 25 MCG TAB PO SCH (19:47)
[2020-05-21] MEDS: ACETAMINOPHEN 325 MG TAB PO PRN (03:53)
[2020-05-21] MEDS: LEVOTHYROXINE SODIUM 50 MCG TABLET PO SCH (05:23)
[2020-05-21] MEDS: LORATADINE 10 MG TAB PO SCH (05:23)
[2020-05-21] MEDS: POTASSIUM CHLORIDE CRTAB 20 MEQ TABCR PO SCH (05:24)
[2020-05-21 07:30] LABS: Creatinine Clr Calc Pharmacy 67.9 ml/min; Est GFR (African American) 75.3; Est GFR (Non-African American) 64.9
[2020-05-21] MEDS: CEFEPIME 2,000 MG in SYRINGE 0 ML IV SCH (08:02)
[2020-05-21] MEDS: SUCRALFATE 1 GM TAB PO SCH (09:02)
[2020-05-21] MEDS: risperiDONE 0.5 MG TABLET PO SCH (09:02)
[2020-05-21] MEDS: LACTOBACILLUS ACIDOPHILUS 1 GM PACK PO SCH ×2 (09:02→12:01)
[2020-05-21] MEDS: DOCUSATE SODIUM 100 MG CAP PO SCH (09:03)
[2020-05-21] MEDS: PRIMIDONE 50 MG TAB PO SCH (09:03)
[2020-05-21] MEDS: busPIRone 15 MG TAB PO SCH ×2 (09:03→14:09)
[2020-05-21] MEDS: PANTOprazole 40 MG TAB PO SCH (09:04)
[2020-05-21] MEDS: LINACLOTIDE 145 MCG CAPSULE PO SCH (09:04)
[2020-05-21] MEDS: TIMOLOL MALEATE 0.5% OP SOLN 5 ML BTL OPB SCH (09:05)
[2020-05-21] MEDS: ASPIRIN 81 MG ECTAB PO SCH (09:05)
[2020-05-21] MEDS: buPROPion XL 300 MG TABCR PO SCH (09:05)
[2020-05-21] MEDS: SIMVASTATIN 20 MG TAB PO SCH (09:05)
[2020-05-21] MEDS: GABAPENTIN 600 MG TAB PO SCH ×2 (09:05→14:09)
[2020-05-21] MEDS: KETOROLAC 0.5% OP SOLN PER DROP CHARGE OPL SCH ×2 (09:06→12:01)
[2020-05-21] MEDS: TESTOSTERONE GEL TOP SCH (09:06)
[2020-05-21] MEDS: SIMBRINZA~NON-FORMULARY PATIENT'S OWN MED OP SCH (09:07)
[2020-05-21] MEDS: MoRPHine SULFATE CR 15 MG TABCR PO SCH (09:11)
--- NOTE | 2020-05-21 10:14 | Surgery Progress Note ---
Date of Service May 21, 2020 Assessment & Plan (1) Surgical wound, non healing: Awaiting insurance approval for home IV antibiotic- Juan will require 2 weeks IV Cefepime. Juan has friend/neighbor who is able to administer IV antibiotics at home. Nevaeh was able to speak with Ivonne Pabon regarding patient's plan- if Juan is not discharged to home today, will continue irrigating vac to right chest wound. If Juan is discharged to home, VAC will be removed and wound will be dressed with Aquacel AG and optifoam. Patient has wound vac at home and home health is able to place wound vac. He will follow-up with [facility] wound care center. Admission and Anticipated Discharge Date Admission Date: May 15, 2020 Subjective Juan is sitting at bedside this morning. Wound vac at right chest in place. He notes that he is upset about not knowing if IV antibiotic therapy has been officially arranged for home. He reports that he wants to be discharged today. He denies any pain or discomfort. He tolerating the wound vac well. Physical Exam Physical Exam: On physical exam- wound vac is in place. Vac is functioning. Juan is tolerating vac well. Constitutional: WD/WN, vitals as above no acute distress Respiratory: no respiratory distress Psychiatric: Orientation: oriented x 3 Results & Data ([facility]) Vital Signs (Past 12 Hours) Vital Signs Temp Pulse Resp BP BP Pulse Ox 05/21/20 07:14 36.9 C 93 H 18 169/89 H 159/100 H 96 05/20/20 23:15 36.7 C 79 18 146/85 H 94 PG Care Time/CCT Total # of Minutes Spent Total Time Spent with Patient: Total time spent is greater than 50% in coordination of care (as documented) at patient's floor/unit and/or counseling patient: Coding Level of Care Code 30845 Subseq Hosp Care Lvl 1 Diagnoses Surgical wound, non healing T81.89XA Encounter type: initial encounter (1) Surgical wound, non healing Encounter type: initial encounter Qualified Code(s): T81.89XA - Other complications of procedures, not elsewhere classified, initial encounter
[2020-05-21] MEDS: risperiDONE 1 MG TABLET PO SCH (10:37)
[2020-05-21] MEDS ORDERED: CEFEPIME 2,000 MG in SYRINGE 0 ML IV ONE (12:00)
--- NOTE | 2020-05-21 14:19 | Hospitalist Progress Note ---
Date of Service May 20, 2020 LATE ENTRY FOR VISIT ON 05/20/20 -PATIENT WAS SEEN AT [facility] 6:30 PM Assessment & Plan (1) Surgical wound, non healing: (2) Pseudomonas infection: - -Patient sent wound clinic for management of nonhealing surgical wound at right mastectomy site -S/p elective bilateral mastectomies on 01/04/2020 as part of gender reassignment surgery Wound cultures from January and February grew Pseudomonas Patient was treated with p.o. ciprofloxacin to 50 mg twice daily for 3 weeks in February to mid March Patient was seen at the [facility] wound care clinic on March, He has been following very closely with wound today wound care clinic, required wound VAC. Sent [facility] from wound care clinic on May 15, 2020 wound culture positive for fluoroquinolone resistant Pseudomonas Failed out pt treatment with PO antibiotic for infected rt chest wall wound Patient started with IV cefepime 2 g every 8 hours-does not have any p.o. antibiotic option due to resistant organism pt requires inpatient hospital stay for IV antibiotics Appreciate input from [facility] ID: Needs 2 weeks of IV cefepime/ attempt to arrange home IV Abx has been challenging for multiple daily dosing option for continuous infusion discussed with CM , will look into insurance coverage for home cont IV on Thursday Plastic reconstructive surgery following closely.-appreciate input wound care team following Patient has an wound VAC on, Patient needs continued hospital stay for IV antibiotics, IV fluids (3) Hypertension: -BP controlled, (4) Chronic diastolic CHF (congestive heart failure): -Appears euvolemic, Torsemide on hold for acute renal failure (5) Stage III chronic kidney disease: Acute renal failure on CKD stage III: Baseline creatinine 1.21.3 cr continues to improve cont to diuretics/torsemide on IV fluids repeat BMP in a.m. Avoid NSAIDs, contrast studies (6) Multiple sclerosis: -Stable, receives Ocrevus injections every 6 months (7) Bipolar disorder: -Stable, continue home medications (8) Chronic pain: -Continue home dose of morphine (9) DVT prophylaxis: -SCDs, ambulate disposition : patient is legally blind will not be able to do self administer of IV antibiotics does not have friend and family support to assist with IV abx administration home health will not be provide that care will need Skilled rehab for IV antibiotics , which pt has been adamantly refusing pt will need to stay over the weekend for arrangements of wound vac at home reached out to [facility] ID -no option of Daily IV abx or PO needs to be treated with IV cefepime for total 2 weeks to treat infected wound case managment updated Admission and Anticipated Discharge Date Admission Date: May 15, 2020 Subjective FOLLOW UP VISIT FOR INFECTED POST SURGICAL WOUND ON RIGHT CHEST WALL /PSEUDOMONAS INFECTION: offers no complain has been afebrile no pain or discomfort at the wound vac site tolerating IV antibiotic , no further episode of loose stool very eager to be discharged home on Thursday -earliest time possible Review of Systems Review of Systems: ROS per HPI, all other systems reviewed and negative Physical Exam Constitutional: WD/WN, vitals as above Eyes: PERRL, conjunctivae normal, anicteric sclerae ENMT: external ear and nose normal, oropharynx normal Neck: trachea midline, no thyromegaly Respiratory: normal respiratory effort, lungs clear to auscultation Cardiovascular: RRR, no murmur, no edema Gastrointestinal (Abdomen): normal bowel sounds, soft, nontender, no hepatosplenomegaly Musculoskeletal: Head/Neck/Chest: + abnormal inspection of chest wall (wound vac present ) Neurologic: PERRL, EOMI, accommodation nl, no face palsy, no dysarthria Psychiatric: A+Ox3, euthymic affect Results & Data Results & Data ([facility]) Vital Signs (Past 12 Hours) Vital Signs Temp Pulse Resp BP BP Pulse Ox 05/21/20 07:14 36.9 C 93 H 18 169/89 H 159/100 H 96 (1) Surgical wound, non healing Encounter type: initial encounter Qualified Code(s): T81.89XA - Other complications of procedures, not elsewhere classified, initial encounter (2) Hypertension Hypertension type: unspecified Qualified Code(s): I10 - Essential (primary) hypertension
--- NOTE | 2020-05-21 14:19 | Hospitalist Progress Note ---
Date of Service May 21, 2020 Assessment & Plan (1) Surgical wound, non healing: (2) Pseudomonas infection: - -Patient sent wound clinic for management of nonhealing surgical wound at right mastectomy site -S/p elective bilateral mastectomies on 01/04/2020 as part of gender reassignment surgery Wound cultures from January and February grew Pseudomonas Patient was treated with p.o. ciprofloxacin to 50 mg twice daily for 3 weeks in February to mid March Patient was seen at [facility] on March, He has been following very closely with wound today wound care clinic, required wound VAC. Sent [facility] from wound care clinic on May 15, 2020 wound culture positive for fluoroquinolone resistant Pseudomonas Failed out pt treatment with PO antibiotic for infected rt chest wall wound on IV cefepime 2 g every 8 hours- Abx Day# 7 needs total 2 weeks tx does not have any p.o. antibiotic option due to resistant organism arrangements made for home IV Cefepime continuous Infusion for 1 more week PICC Line placed pt will be followed by [facility] in clinic Plastic reconstructive surgery following closely.-appreciate input - wound care team following Patient has an wound VAC on, stable to be discharged home today (3) Hypertension: -BP controlled, (4) Chronic diastolic CHF (congestive heart failure): -Appears euvolemic, renal function normalized , toresemide resumed (5) Stage III chronic kidney disease: Acute renal failure on CKD stage III: resolved cr improved from 1.8-1.7-1.4 to 1.2 today trosemide resumed Avoid NSAIDs, contrast studies (6) Multiple sclerosis: -Stable, receives Ocrevus injections every 6 months (7) Bipolar disorder: -Stable, continue home medications (8) Chronic pain: -Continue home dose of morphine (9) DVT prophylaxis: -SCDs, ambulate disposition : discharged home today with home IV Abx : IV Cefepime 6 gm continuous infusion over 24 hrs for 7 more days ID follow up scheduled discharged home on wound vac , will be followed at wound clinic plan of care discussed with patient in detail , all questions anserwed Admission and Anticipated Discharge Date Admission Date: May 15, 2020 Subjective FOLLOW UP VISIT FOR INFECTED POST SURGICAL WOUND ON RIGHT CHEST WALL /PSEUDOMONAS INFECTION: no fever or chills feels fine , eager to be discharged home today arrangements made for home IV Cefepime continuous infusion needs 1 more week of therapy PICC line placed arrangements made for home health visiting nurse stable to be discharged home today Review of Systems Review of Systems: ROS per HPI, all other systems reviewed and negative Physical Exam Constitutional: WD/WN, vitals as above Eyes: PERRL, conjunctivae normal, anicteric sclerae ENMT: external ear and nose normal, oropharynx normal Neck: trachea midline, no thyromegaly Respiratory: normal respiratory effort, lungs clear to auscultation Cardiovascular: RRR, no murmur, no edema Gastrointestinal (Abdomen): normal bowel sounds, soft, nontender, no hepat osplenomegaly Musculoskeletal: Head/Neck/Chest: + abnormal inspection of chest wall (wound vac present ) Neurologic: PERRL, EOMI, accommodation nl, no face palsy, no dysarthria Psychiatric: A+Ox3, euthymic affect Results & Data Results & Data ([place]) Vital Signs (Past 12 Hours) Vital Signs Temp Pulse Pulse Resp BP BP Pulse Ox 05/21/20 14:14 36.9 C 82 18 159/100 H 96 05/21/20 07:14 36.9 C 93 H 18 169/89 H 159/100 H 96 (1) Surgical wound, non healing Encounter type: initial encounter Qualified Code(s): T81.89XA - Other complications of procedures, not elsewhere classified, initial encounter (2) Hypertension Hypertension type: unspecified Qualified Code(s): I10 - Essential (primary) hypertension
--- NOTE | 2020-05-21 14:28 | Discharge Summary ---
Date of Service May 21, 2020 Admission HPI Per Admitting Provider 59-year-old male with PMH female to male transgender, hypothyroidism, chronic pain syndrome, multiple sclerosis, bipolar disorder, CKD stage III, HTN, iron deficiency anemia, history of bioprosthetic mitral valve replacement, chronic diastolic CHF, and other problems listed below who presents to the ED by referral of wound clinic for management of nonhealing surgical wound. Patient underwent elective bilateral mastectomies on 01/04/2020 as part of gender reassignment surgery. Patient has been having ongoing issues with nonhealing wound of the lateral right mastectomy site. Has been treated with wound VAC. Culture from 05/11/2020 grew fluoroquinolone resistant Pseudomonas. Patient reports he has been feeling well. No fevers or chills. Denies chest pain shortness of breath. No lightheadedness, dizziness, diaphoresis, syncopal events. Denies abdominal pain, nausea, vomiting, diarrhea. No urinary symptoms. In the ED, patient is hemodynamically stable. Labs are unremarkable. Patient was given IV cefepime. Principal Diagnosis NON HEALING SURGICAL WOUND ON RT CHEST WALL /POST MASTECTOMY SITE PSEUDOMONAS INFECTION OF SURGICAL WOUND Discharge Exam Constitutional WD/WN, vitals as above Eyes PERRL, conjunctivae normal, anicteric sclerae ENMT external ear and nose normal, oropharynx normal Neck trachea midline, no thyromegaly Respiratory normal respiratory effort, lungs clear to auscultation Cardiovascular RRR, no murmur, no edema Gastrointestinal (Abdomen) normal bowel sounds, soft, nontender, no hepatosplenomegaly Musculoskeletal Head/Neck/Chest: + abnormal inspection of chest wall (wound vac present ) Neurologic PERRL, EOMI, accommodation nl, no face palsy, no dysarthria Psychiatric A+Ox3, euthymic affect Discharge Data Allergies Allergy/AdvReac Type Severity Reaction Status Date / Time latex Allergy Mild Rash Verified 04/13/20 14:40 adhesive tape Allergy Unknown Rash Verified 04/13/20 14:40 amoxicillin Allergy Unknown Rash Verified 04/13/20 14:40 hydromorphone [From Dilaudid] AdvReac Severe Rash,LIGHTHEADED, Verified 05/15/20 18:57 VERY HOT doxycycline AdvReac Unknown Rash Verified 04/13/20 14:40 lisinopril AdvReac Unknown Unknown Verified 04/13/20 14:40 morphine AdvReac Unknown HIGH Verified 04/13/20 14:40 DOSES-FALLS ASLEEP/CAN'T WAKE UP! NSAIDS (Non-Steroidal AdvReac Unknown GI BLEED Verified 04/13/20 14:40 Anti-Inflamma pregabalin [From Lyrica] AdvReac Unknown Confusion,A Verified 04/13/20 14:40 NGER topiramate [From Topamax] AdvReac Unknown Unknown Verified 04/13/20 14:40 Consultations 05/15/20 17:42 ED Decision to Admit Stat 05/15/20 19:36 Consult Case Management - Discharge Planning Routine Consult Infectious Diseases Routine Consult Plastic Surgery Routine Ordered Studies 05/16/20 18:44 CT chest diagnostic w con Routine Hospital Course (1) Surgical wound, non healing: (2) Pseudomonas infection: - -Patient sent wound clinic for management of nonhealing surgical wound at right mastectomy site -S/p elective bilateral mastectomies on 01/04/2020 as part of gender reassignment surgery Wound cultures from January and February grew Pseudomonas Patient was treated with p.o. ciprofloxacin to 50 mg twice daily for 3 weeks in February to mid March Patient was seen at [facility] on March, He has been following very closely with wound today wound care clinic, required wound VAC. Sent [facility] from wound care clinic on May 15, 2020 wound culture positive for fluoroquinolone resistant Pseudomonas Failed out pt treatment with PO antibiotic for infected rt chest wall wound on IV cefepime 2 g every 8 hours- Abx Day# 7 needs total 2 weeks tx does not have any p.o. antibiotic option due to resistant organism arrangements made for home IV Cefepime continuous Infusion for 1 more week PICC Line placed pt will be followed by [facility] in clinic Plastic reconstructive surgery following closely.-appreciate input - wound care team following Patient has an wound VAC on, stable to be discharged home today (3) Hypertension: -BP controlled, (4) Chronic diastolic CHF (congestive heart failure): -Appears euvolemic, renal function normalized , toresemide resumed (5) Stage III chronic kidney disease: Acute renal failure on CKD stage III: resolved cr improved from 1.8-1.7-1.4 to 1.2 today trosemide resumed Avoid NSAIDs, contrast studies (6) Multiple sclerosis: -Stable, receives Ocrevus injections every 6 months (7) Bipolar disorder: -Stable, continue home medications (8) Chronic pain: -Continue home dose of morphine (9) DVT prophylaxis: -SCDs, ambulate disposition : discharged home today with home IV Abx : IV Cefepime 6 gm continuous infusion over 24 hrs for 7 more days ID follow up scheduled discharged home on wound vac , will be followed at wound clinic plan of care discussed with patient in detail , all questions anserwed Total Time Total Time Spent Total Time Spent (In Minutes): 40 mins Total Time Includes: Examination of the Patient, Discharge Planning, Medication Reconciliation and Communication With Other Providers Discharge Plan Discharge Items Patient Disposition: Home - Home Health Services Reason For Visit: WOUND INFECTION Discharge Diagnosis: NON HEALING SURGICAL WOUND ON RT CHEST WALL /POST MASTECTOMY SITE PSEUDOMONAS INFECTION OF SURGICAL WOUND Activity: Resume your previous activity Non-emergency contact: Primary Care Provider Call non-emergency contact if: you have any medication questions Follow-up/Referrals: Manuela Wilcox DO [Primary Care Provider] - 05/28/20 11:00 am (Date & Time 05/28/2020 11:00 AM Provider Manuela Wilcox DO Department [facility] ) Sameer Guerra MD [Physician] - 06/19/20 11:00 am (Date & Time 06/19/2020 11:00 AM Provider Sameer Guerra MD Department Infectious Disease [facility] ) Diet: Heart Healthy Addtl Attending Provider Instructions: IV ANTIBIOTICS : CEFEPIME 6 GM IV CONTINUOUS INFUSION OVER 24 HRS FOR 7 DAYS PLEASE TAKE OVER THE COUNTER PRO [employer]OT[employer] TO PREVENT ANTIBIOTIC RELATED GASTROENTERITIS PICC LINE WILL BE DISCONTINUED AFTER COMPLETION OF IV ANTIBIOTIC YOU HAVE SCHEDULED APPOINTMENT WITH INFECTIOUS DISEASE DOCTOR AND HOSPITAL FOLLOW UP WITH YOUR FAMILY PHYSICIAN NOTED ABOVE FOLLOW UP WITH PLASTIC RECONSTRUCTIVE SURGERY DR [facility] AND WOUND CLINIC , OFFICE WILL CALL YOU WITH APPOINTMENT Pending Studies at Discharge: No Stand-Alone Forms: My FriendFeed, Smoking Cessation Medications and DC Order Prescriptions: Continued loratadine [Claritin] 10 mg Tablet 10 mg PO QAM RF: 0 Linzess 290 mcg Capsule 290 mcg PO QAM RF: 0 donepezil [Aricept] 10 mg Tablet 10 mg PO QPM RF: 0 simethicone [Gas-X Extra Strength] 125 mg Capsule 125 mg PO BID PRN (Reason: Abdominal Distention) RF: 0 amlodipine 2.5 mg Tablet 2.5 mg PO DAILY PRN (Reason: Hypertension) RF: 0 hydroxyzine HCl 50 mg Tablet 50 mg PO TID PRN (Reason: Itching) RF: 0 trazodone 100 mg Tablet 200 mg PO HS RF: 0 levothyroxine 50 mcg Tablet 50 mcg PO QAM RF: 0 simvastatin 20 mg Tablet 20 mg PO QAM RF: 0 esomeprazole magnesium [Nexium] 40 mg Capsule,Delayed Release(Dr/Ec) 40 mg PO BID RF: 0 risperidone [Risperdal] 0.5 mg Tablet 0.5 mg PO QAM RF: 0 buspirone 15 mg Tablet 15 mg PO TID RF: 0 tizanidine [Zanaflex] 2 mg Capsule 2 mg PO DAILY PRN (Reason: Muscle Spasm) RF: 0 cholecalciferol (vitamin D3) [Vitamin D3] 5,000 unit Tablet 5,000 unit PO QPM RF: 0 testosterone 1.62 % (20.25 mg/1.25 gram) Gel In Packet 3 packet TRANSDERMAL TID RF: 0 Simbrinza 1-0.2 % Drops,Suspension 1 drp OPB BID RF: 0 Trintellix 20 mg Tablet 20 mg PO QAM RF: 0 multivitamin Tablet 1 tab PO QAM RF: 0 primidone [Mysoline] 50 mg Tablet 150 mg PO DAILY RF: 0 promethazine 25 mg Tablet 25 mg PO Q8H PRN (Reason: Nausea) RF: 0 morphine 15 mg Tablet Extended Release 15 mg PO Q12H RF: 0 potassium chloride 20 mEq Tablet Extended Release 20 meq PO BID RF: 0 dimenhydrinate [Dramamine] 50 mg Tablet 50 mg PO TID PRN (Reason: Vertigo) RF: 0 albuterol sulfate 90 mcg/actuation Hfa Aerosol Inhaler 2 puff INHALATION QID PRN (Reason: Shortness Of Breath Or Wheezing) RF: 0 gabapentin 600 mg Tablet 600 mg PO TID RF: 0 torsemide 20 mg Tablet 40 mg PO DAILY RF: 0 tolterodine 4 mg Capsule,Extended Release 24hr 4 mg PO HS RF: 0 sucralfate 1 gram Tablet 1 g PO BIDM RF: 0 ketorolac 0.5 % Drops 1 drp OPL QID RF: 0 gabapentin 300 mg Capsule 300 mg PO HS RF: 0 bupropion HCl 300 mg Tablet Extended Release 24 Hr 300 mg PO QAM RF: 0 timolol maleate 0.5 % Drops, Once Daily 1 drp OPB QAM RF: 0 Vitron-C 65 mg iron- 125 mg Tablet,Delayed Release (Dr/Ec) 1 tab PO BID RF: 0 risperidone 2 mg Tablet 2 mg PO HS RF: 0 risperidone 1 mg Tablet 1 mg PO QAM RF: 0 ropinirole 1 mg Tablet 1 mg PO HS RF: 0 ocrelizumab 30 mg/mL Solution 300 mg IV USEASDIRECTD RF: 0 aspirin [Aspirin Low Dose] 81 mg Tablet,Delayed Release (Dr/Ec) 81 mg PO DAILY RF: 0 Discharge Orders: Discharge Order (Routine); Ordered 05/21/20 Ordered By: Purnima Junior Admission Data Admit Date/Time: 05/15/20 17:44 Attending Provider: Purnima Junior Admit Provider: Miguelangel Ploo Primary Care Provider: Manuela Wilcox Other Providers: Miguelangel Polo ; Blaze Del Toro ; Anastasia Jarvis ; Sameer Guerra I. ; Beka Pereira II ; Madai Cox ; Emerson Berry ; Shahrzad Joel ; [facility]
[2020-05-21] MEDS ORDERED: CEFEPIME 2,000 MG in SYRINGE 0 ML IV SCH ×2 (16:00→20:00)
== END 2020-05-21 15:58 | disposition home health service (06) | DRG 863 ==
LOC: ED 16:30 → 3N 17:44 → SUATTDRO 17:44 → 3N 18:44